=== PATIENT | female | born 1990 | race Hispanic/Latino ===

== ENCOUNTER 2017-08-22 02:31 | Emergency (ER) | payer SELFPAY ==
[2017-08-22] MEDS ORDERED: CEFTRIAXONE/SWI 1gm 0 GM/0 ML SYR ONE (03:02)
[2017-08-22] MEDS ORDERED: IBUPROFEN 400 MG TAB ONE (03:02)
[2017-08-22] MEDS ORDERED: AMOX/K CLAV 875 MG TAB ONE (03:02)
[2017-08-22] MEDS ORDERED: IBUPROFEN 200 MG TAB PO ONE (03:02)
[2017-08-22] MEDS ORDERED: CEFTRIAXONE 1000 MG/VIAL ONE (03:03)
--- NOTE | 2017-08-22 03:05 | EDPHYS ---
Physician Documentation [facility] Name: Milka Landry Age: 26 yrs Sex: Female : 1990 Arrival Date: 08/22/2017 Time: 02:32 Bed 15 Private MD: ED Physician Pete Gandara HPI: 08/22 02:58 This 26 yrs old Female presents to ER via Unassigned with complaints of Fever, wilfredo Cough, Ear Pain, Sore Throat. 02:58 The patient reports fever, that was measured at 100 degrees Fahrenheit. Onset: The wilfredo symptoms/episode began/occurred 3 day(s) ago. Modifying factors: there are no obvious modifying factors. Associated signs and symptoms: Pertinent positives: chills, cough, earache, runny nose, sinus congestion, sinus drainage. Severity of symptoms: At their worst the symptoms were mild moderate in the emergency department the symptoms are unchanged. The patient has not experienced similar symptoms in the past. 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 - Social history:: Smoking status: Patient/guardian denies using tobacco. - Family history:: not pertinent. ROS: 02:59 Constitutional: Negative for fever, chills, and weight loss, Eyes: Negative for injury, wilfredo pain, redness, and discharge, Neck: Negative for injury, pain, and swelling, Cardiovascular: Negative for chest pain, palpitations, and edema, Abdomen/GI: Negative for abdominal pain, nausea, vomiting, diarrhea, and constipation, Back: Negative for injury and pain, : Negative for injury, bleeding, discharge, and swelling, MS/Extremity: Negative for injury and deformity, Skin: Negative for injury, rash, and discoloration, Neuro: Negative for headache, weakness, numbness, tingling, and seizure, Psych: Negative for depression, anxiety, suicide ideation, homicidal ideation, and hallucinations, Allergy/Immunology: Negative for hives, rash, and allergies, Endocrine: Negative for neck swelling, polydipsia, polyuria, polyphagia, and marked weight changes, Hematologic/Lymphatic: Negative for swollen nodes, abnormal bleeding, and unusual bruising. 02:59 ENT: Positive for difficulty swallowing, hoarseness, rhinorrhea, sinus congestion, sore throat. 02:59 Neck: Negative for injury or acute deformity, mass, pain with movement, pain at rest. Exam: 02:59 Constitutional: This is a well developed, well nourished patient who is awake, alert, wilfredo and in no acute distress. Head/Face: Normocephalic, atraumatic. Eyes: Pupils equal round and reactive to light, extra-ocular motions intact. Lids and lashes normal. Conjunctiva and sclera are non-icteric and not injected. Cornea within normal limits. Periorbital areas with no swelling, redness, or edema. ENT: Nares patent. No nasal discharge, no septal abnormalities noted. Tympanic membranes are normal and external auditory canals are clear. Oropharynx with no redness, swelling, or masses, exudates, or evidence of obstruction, uvula midline. Mucous membranes moist. Chest/axilla: Normal chest wall appearance and motion. Nontender with no deformity. No lesions are appreciated. Cardiovascular: Regular rate and rhythm with a normal S1 and S2. No gallops, murmurs, or rubs. Normal PMI, no JVD. No pulse deficits. Respiratory: Lungs have equal breath sounds bilaterally, clear to auscultation and percussion. No rales, rhonchi or wheezes noted. No increased work of breathing, no retractions or nasal flaring. Abdomen/GI: Soft, non-tender, with normal bowel sounds. No distension or tympany. No guarding or rebound. No evidence of tenderness throughout. Back: No spinal tenderness. No costovertebral tenderness. Full range of motion. Female : Normal external genitalia. Skin: Warm, dry with normal turgor. Normal color with no rashes, no lesions, and no evidence of cellulitis. MS/ Extremity: Pulses equal, no cyanosis. Neurovascular intact. Full, normal range of motion. Neuro: Awake and alert, GCS 15, oriented to person, place, time, and situation. Cranial nerves II-XII grossly intact. Motor strength 5/5 in all extremities. Sensory grossly intact. Cerebellar exam normal. Normal gait. Psych: Awake, alert, with orientation to person, place and time. Behavior, mood, and affect are within normal limits. 02:59 Neck: External neck: is normal. 02:59 Chest/axilla: Exam negative for 02:59 Cardiovascular: Exam negative for 02:59 Respiratory: the patient does not display signs of respiratory distress, Respirations: no acute changes, Breath sounds: rhonchi, that are mild, are scattered. 02:59 Abdomen/GI: Exam negative for Vital Signs: 04:00 BP 121 / 72; Pulse 88; Resp 16; Temp 97.9(O); Pulse Ox 99% on R/A; Weight 125.19 kg; bs1 Height 5 ft. 2 in. (157.48 cm); Pain 8/10; 04:00 Body Mass Index 50.48 (125.19 kg, 157.48 cm) bs1 MDM: 02:43 Patient medically screened. [facility] 03:01 Data reviewed: vital signs, nurses notes. [facility] 08/22 02:58 Order name: Urine Dipstick-Ancillary (obtain specimen); Complete Time: 04:21 [facility] 08/22 02:58 Order name: Urine Test (obtain specimen); Complete Time: 04:21 [facility] Administered Medications: 03:31 Drug: Motrin 600 mg Route: PO; bs1 04:22 Follow up: Response: No adverse reaction 1 03:32 Drug: Rocephin (cefTRIAXone) 1 grams Route: IM; Site: right gluteus; bs1 04:22 Follow up: Response: No adverse reaction 1 03:32 Drug: Augmentin 875 mg Route: PO; bs1 04:22 Follow up: Response: No adverse reaction bs1 Disposition: 08/22/17 03:05 Discharged to Home. Impression: Fever, unspecified, Acute laryngitis, Cough, Otitis media, unspecified, left ear. - Condition is Stable. - Discharge Instructions: Otitis Media, Adult, Laryngitis, Cool Mist Vaporizers, Otitis Media, Adult, [id number], Cough, Adult, [id number], Cough, Adult. - Prescriptions for Augmentin 875- 125 mg Oral Tablet - take 1 tablet by ORAL route every 12 hours for 10 days; 20 tablet. Maranda- D 12 Hour 60-120 mg Oral Tablet Sustained Release 12 hr - take 1 tablet by ORAL route every 12 hours As needed; 20 tablet. Medrol (Durga) 4 mg Oral Tablets, Dose Pack - take 1 tablet by ORAL route as directed - follow package instructions; 1 packet. Albuterol Sulfate 90 mcg/actuation - inhale 1-2 puff by INHALATION route every 4-6 hours; 1 Inhaler. - Medication Reconciliation Form, Thank You Letter, Antibiotic Education, Prescription Opioid Use form. - Follow up: Private Physician; When: 2 - 3 days; Reason: Recheck today's complaints, Re-evaluation by your physician. - Problem is new. - Symptoms have improved. Signatures: Dispatcher [employer] EDMS Pete Gandara MD MD cha Salazar, Brittany RN RN bs1 Corrections: (The following items were deleted from the chart) 04:27 03:05 08/22/2017 03:05 Discharged to Home. Impression: Fever, unspecified; Acute bs1 laryngitis; Cough; Otitis media, unspecified, left ear. Condition is Stable. Forms are Medication Reconciliation Form, Thank You Letter, Antibiotic Education, Prescription Opioid Use. Follow up: Private Physician; When: 2 - 3 days; Reason: Recheck today's complaints, Re-evaluation by your physician. Problem is new. Symptoms have improved. wilfredo
--- NOTE | 2017-08-22 04:27 | ER ---
Nurse's Notes [facility] Name: Milka Landry Age: 26 yrs Sex: Female : 1990 Arrival Date: 08/22/2017 Time: 02:32 Bed 15 Private MD: Diagnosis: Fever, unspecified;Acute laryngitis;Cough;Otitis media, unspecified, left ear Presentation: 08/22 02:45 Presenting complaint: Patient states: "I have been coughing so bad that I lost my voice bs1 and my throat hurts really bad.". Transition of care: patient was not received from another setting of care. Onset of symptoms was August 19, 2017. Initial Sepsis Screen: Does the patient meet any 2 criteria? No. Patient's initial sepsis screen is negative. Does the patient have a suspected source of infection? No. Patient's initial sepsis screen is negative. Care prior to arrival: None. 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 - Social history:: Smoking status: Patient/guardian denies using tobacco. - Family history:: not pertinent. Screenin:51 Abuse screen: Denies threats or abuse. Denies injuries from another. Nutritional bs1 screening: No deficits noted. Tuberculosis screening: No symptoms or risk factors identified. Fall Risk None identified. Assessment: 02:50 General: Appears in no apparent distress. uncomfortable, obese, Behavior is calm, bs1 cooperative, appropriate for age. Pain: Complains of pain in throat. Neuro: Level of Consciousness is awake, alert, obeys commands, Oriented to person, place, time, situation, Appropriate for age Restrictive Preparation Operator are equal bilaterally Moves all extremities. Cardiovascular: Denies chest pain, shortness of breath, Heart tones S1 S2 present Capillary refill < 3 seconds Patient's skin is warm and dry. Respiratory: Reports cough that is non-productive, Airway is patent Trachea midline Respiratory effort is even, unlabored, Respiratory pattern is regular, symmetrical, Breath sounds are clear bilaterally. GI: No deficits noted. No signs and/or symptoms were reported involving the gastrointestinal system. : No deficits noted. No signs and/or symptoms were reported regarding the genitourinary system. EENT: Throat is reddened Reports pain in right ear and left ear. Derm: Skin is intact, Skin is pink, warm \\T\\ dry. Musculoskeletal: Circulation, motion, and sensation intact. Capillary refill < 3 seconds, Range of motion: intact in all extremities. Vital Signs: 04:00 BP 121 / 72; Pulse 88; Resp 16; Temp 97.9(O); Pulse Ox 99% on R/A; Weight 125.19 kg; bs1 Height 5 ft. 2 in. (157.48 cm); Pain 8/10; 04:00 Body Mass Index 50.48 (125.19 kg, 157.48 cm) bs1 ED Course: 02:32 Patient arrived in ED. am2 02:43 Pete Gandara MD is Attending Physician. wilfredo 02:50 Arm band placed on placed. bs1 02:56 Joanne Field, JANINE is Primary Nurse. bs1 03:48 Triage completed. bs1 03:52 Patient has correct armband on for positive identification. Bed in low position. Call bs1 light in reach. Side rails up X 1. Pulse ox on. NIBP on. 04:23 No provider procedures requiring assistance completed. Patient did not have IV access bs1 during this emergency room visit. Administered Medications: 03:31 Drug: Motrin 600 mg Route: PO; bs1 04:22 Follow up: Response: No adverse reaction bs1 03:32 Drug: Rocephin (cefTRIAXone) 1 grams Route: IM; Site: right gluteus; bs1 04:22 Follow up: Response: No adverse reaction bs1 03:32 Drug: Augmentin 875 mg Route: PO; bs1 04:22 Follow up: Response: No adverse reaction bs1 Outcome: 03:05 Discharge ordered by . wilfredo 04:26 Discharged to home ambulatory. bs1 04:26 Condition: stable 04:26 Discharge instructions given to patient, Instructed on discharge instructions, follow up and referral plans. medication usage, Demonstrated understanding of instructions, follow-up care, medications, Prescriptions given X 4. 04:27 Patient left the ED. bs1 Signatures: Pete Gandara MD MD cha Moreno, Amanda am2 Salazar, Brittany RN RN bs1 Corrections: (The following items were deleted from the chart) : 02:50 EENT: Throat is reddened bs1 bs1
[2017-08-22 04:31] VITALS: BP 121/72; TEMP 97.9; O2SAT 99
== END 2017-08-22 04:27 | disposition home or self-care (01) ==
LOC: ER 02:31
DX: J04.0 Acute laryngitis (principal); H66.92 Otitis media, unspecified, left ear; R05 Cough
CPT/HCPCS: 96372; 99283; J0696

== ENCOUNTER 2017-08-22 08:17 | Emergency (ER) | payer SELFPAY ==
[2017-08-22] MEDS ORDERED: ALBUTEROL 2.5 MG/3 ML NEB SOL ONE (08:49)
--- NOTE | 2017-08-22 09:42 | RAD REPORT ---
EXAM DESCRIPTION: RAD - Chest Pa And Lat (2 Views) - 08/22/2017 9:22 am CLINICAL HISTORY: Cough x2 days COMPARISON: None. FINDINGS: The lungs are clear. The heart is normal in size. No displaced fractures. IMPRESSION: No acute or concerning finding suspected.
--- NOTE | 2017-08-22 09:57 | ER ---
Nurse's Notes [facility] Name: Milka Landry Age: 26 yrs Sex: Female : 1990 Arrival Date: 08/22/2017 Time: 08:19 Bed 14 Private MD: Diagnosis: Otitis media, unspecified, bilateral;Acute upper respiratory infection, unspecified Presentation: 08/22 08:47 Presenting complaint: Patient states: has cough X 2days. Transition of care: patient iw was not received from another setting of care. Onset of symptoms was August 20, 2017. Initial Sepsis Screen: Does the patient meet any 2 criteria? No. Patient's initial sepsis screen is negative. Does the patient have a suspected source of infection? No. Patient's initial sepsis screen is negative. Care prior to arrival: None. 08:47 Method Of Arrival: Ambulatory iw 08:47 Acuity: HEATHER 4 iw Triage Assessment: 08:47 General: Appears in no apparent distress. uncomfortable, obese, Behavior is calm, hj cooperative, appropriate for age. Pain: Denies pain. 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 - Social history:: Smoking status: Patient/guardian denies using tobacco, Patient/guardian denies using alcohol. Screenin:47 Abuse screen: Denies threats or abuse. Denies injuries from another. Nutritional hj screening: No deficits noted. Tuberculosis screening: No symptoms or risk factors identified. Fall Risk None identified. Assessment: 10:33 Reassessment: Patient appears in no apparent distress at this time. Patient and/or ch family updated on plan of care and expected duration. Pain level reassessed. Patient is alert, oriented x 3, equal unlabored respirations, skin warm/dry/pink. General: Appears in no apparent distress. comfortable, Behavior is calm, cooperative, appropriate for age. Pain:. 10:38 Reassessment: Patient appears in no apparent distress at this time. Patient and/or ch family updated on plan of care and expected duration. Pain level reassessed. Patient is alert, oriented x 3, equal unlabored respirations, skin warm/dry/pink. Patient states feeling better. Patient states symptoms have improved. Vital Signs: 08:47 BP 121 / 72; Pulse 88; Resp 18; Temp 98.1(TE); Pulse Ox 100% on R/A; Weight 125.1 kg; hj Height 5 ft. 2 in. (157.48 cm); 10:38 BP 116 / 76; Pulse 81; Resp 15; Temp 98.2; Pulse Ox 99% on R/A; Pain 7/10; ch 08:47 Body Mass Index 50.44 (125.10 kg, 157.48 cm) ED Course: 08:19 Patient arrived in ED. rg4 08:35 Pete Renteria PA is PHCP. cp 08:35 Pete Gandara MD is Attending Physician. cp 08:46 Salvador Quintanilla, RN is Primary Nurse. hj 08:47 Arm band placed on right wrist. hj 08:47 Patient has correct armband on for positive identification. Bed in low position. Call light in reach. Side rails up X 1. 08:48 Triage completed. iw 09:08 Patient moved to radiology via wheelchair. sw 09:20 X-ray completed. Portable x-ray completed in exam room. Patient tolerated procedure sw well. Patient moved back from radiology. 09:21 XRAY Chest Pa And Lat (2 Views) In Process Unspecified. EDMS 10:38 Primary Nurse role handed off by Salvador Quintanilla, RN ch 10:38 Rachael Day, RN is Primary Nurse. ch 10:38 No apparent distress. Resting quietly. ch 10:38 No provider procedures requiring assistance completed. Patient did not have IV access ch during this emergency room visit. Administered Medications: 08:46 Drug: Albuterol 2.5 mg Route: Inhalation; iw 10:39 Follow up: Response: No adverse reaction; Marked relief of symptoms ch 10:23 Drug: Tessalon Perle 200 mg Route: PO; ae1 10:39 Follow up: Response: No adverse reaction; Marked relief of symptoms ch 10:23 Drug: predniSONE 40 mg Route: PO; ae1 10:39 Follow up: Response: No adverse reaction; Marked relief of symptoms ch Outcome: 09:57 Discharge ordered by . cp 10:38 Discharged to home ambulatory. ch 10:38 Condition: improved 10:38 Discharge instructions given to patient, Instructed on discharge instructions, follow up and referral plans. medication usage, Demonstrated understanding of instructions, follow-up care, medications, Prescriptions given X 3. 10:39 Patient left the ED. Signatures: Dispatcher [employer] EDMS Rachael Day RN RN ch Williams, Irene, RN RN iw Warren, Shannon sw Joaquin, Henry, RN RN hj Page, Corey, PA PA cp Elliott, Andrea RN RN ae1 Yas Oh rg4 Corrections: (The following items were deleted from the chart) 09:12 09:11 BP 121 / 72; Pulse 88bpm; Resp 18bpm; Temp 98.1F Temporal; arlene jacobs
--- NOTE | 2017-08-22 09:57 | EDPHYS ---
Physician Documentation [facility] Name: Milka Lnadry Age: 26 yrs Sex: Female : 1990 Arrival Date: 08/22/2017 Time: 08:19 Bed 14 Private MD: ED Physician Pete Gandara HPI: 08/22 08:45 This 26 yrs old Female presents to ER via Unassigned with complaints of Cough. cp 08:45 The patient or guardian reports cough, that is constant, with productive sputum, clear. cp Onset: The symptoms/episode began/occurred 2 day(s) ago. Severity of symptoms: in the emergency department the symptoms are unchanged. 08:45 Patient returns to ED after being seen earlier this morning with similar complaints and cp reports she was unable to sleep due to cough worsening when lying flat. Patient reports she in unsure what she can take for cough. Patient reports she was diagnosed with ear infection and given RX for antibiotic. 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 - Social history:: Smoking status: Patient/guardian denies using tobacco, Patient/guardian denies using alcohol. ROS: 09:00 Constitutional: Negative for body aches, chills, fever, poor PO intake. cp 09:00 Eyes: Negative for injury, pain, redness, and discharge. cp 09:00 ENT: Positive for rhinorrhea, sore throat, Negative for drainage from ear(s), difficulty swallowing, difficulty handling secretions. 09:00 Cardiovascular: Negative for chest pain, edema. 09:00 Respiratory: Positive for cough, "sounds productive", Negative for hemoptysis. 09:00 Abdomen/GI: Negative for abdominal pain, nausea, vomiting, and diarrhea, constipation, black/tarry stool, rectal bleeding. 09:00 Back: Negative for pain at rest, pain with movement, radiated pain. 09:00 : Negative for urinary symptoms. 09:00 Skin: Negative for cellulitis, rash. 09:00 Neuro: Negative for altered mental status, headache, weakness. 09:00 All other systems are negative. Exam: 09:00 Head/Face: Normocephalic, atraumatic. cp 09:00 Constitutional: The patient appears in no acute distress, alert, non-diaphoretic, non-toxic, well developed, well nourished, obese, uncomfortable. 09:00 Eyes: Periorbital structures: appear normal, Pupils: equal, round, and reactive to light and accomodation, Extraocular movements: intact throughout, Conjunctiva: normal, no exudate, no injection, Sclera: no appreciated abnormality, Lids and lashes: appear normal, bilaterally. 09:00 ENT: External ear(s): are unremarkable, Ear canal(s): erythema, that is moderate, TM's: bulging, is not appreciated, bilaterally, erythema, that is mild, bilaterally, Nose: is normal, Mouth: Lips: moist, Oral mucosa: moist, Posterior pharynx: Airway: no evidence of obstruction, patent, Tonsils: mild erythema, no enlargement, no erythema, Uvula: midline, swelling, is not appreciated, erythema, that is mild, exudate, is not appreciated, Voice: is hoarse. 09:00 Neck: ROM/movement: is normal, is supple, without pain, no range of motions limitations, no meningismus, no nuchal rigidity, negative Brudzinski's sign. 09:00 Chest/axilla: Inspection: normal, Palpation: is normal, no crepitus, no tenderness. 09:00 Cardiovascular: Rate: normal, Rhythm: regular, Edema: JVD: is not appreciated. 09:00 Respiratory: the patient does not display signs of respiratory distress, Respirations: labored breathing, is not present, Breath sounds: bronchial sounds, that are mild, are heard diffusely, stridor, is not appreciated, + upper airway congestion. 09:00 Abdomen/GI: Inspection: obese Bowel sounds: 09:00 Back: pain, is absent, ROM is normal. 09:00 Skin: cellulitis, is not appreciated. Vital Signs: 08:47 BP 121 / 72; Pulse 88; Resp 18; Temp 98.1(TE); Pulse Ox 100% on R/A; Weight 125.1 kg; hj Height 5 ft. 2 in. (157.48 cm); 10:38 BP 116 / 76; Pulse 81; Resp 15; Temp 98.2; Pulse Ox 99% on R/A; Pain 7/10; ch 08:47 Body Mass Index 50.44 (125.10 kg, 157.48 cm) hj MDM: 08:35 Patient medically screened. cp 10:55 Data reviewed: vital signs, nurses notes, lab test result(s), radiologic studies, plain cp films, and as a result, I will. 10:55 Differential Diagnosis: Bronchitis Influenza Sinusitis Pharyngitis Otitis Media. Test cp interpretation: by ED physician or midlevel provider: plain radiologic studies. Counseling: I had a detailed discussion with the patient and/or guardian regarding: the historical points, exam findings, and any diagnostic results supporting the discharge/admit diagnosis, radiology results, the need for outpatient follow up, a family practitioner, to return to the emergency department if symptoms worsen or persist or if there are any questions or concerns that arise at home. 08/22 08:46 Order name: Influenza Screen (A ; Complete Time: 09:33 EDMS 08/22 09:33 Interpretation: Reviewed. cp 08/22 08:46 Order name: XRAY Chest Pa And Lat (2 Views); Complete Time: 09:56 cp 08/22 09:56 Interpretation: Report reviewed. 08/22 08:46 Order name: Urine Dipstick-Ancillary (obtain specimen); Complete Time: 09:17 cp 08/22 08:46 Order name: Urine Test (obtain specimen); Complete Time: 08:47 cp Administered Medications: 08:46 Drug: Albuterol 2.5 mg Route: Inhalation; iw 10:39 Follow up: Response: No adverse reaction; Marked relief of symptoms ch 10:23 Drug: Tessalon Perle 200 mg Route: PO; ae1 10:39 Follow up: Response: No adverse reaction; Marked relief of symptoms ch 10:23 Drug: predniSONE 40 mg Route: PO; ae1 10:39 Follow up: Response: No adverse reaction; Marked relief of symptoms ch Disposition: 08/23 06:59 Co-signature as Attending Physician, Pete Gandara MD I agree with the assessment and wilfredo plan of care. Disposition: 08/22/17 09:57 Discharged to Home. Impression: Otitis media, unspecified, bilateral, Acute upper respiratory infection, unspecified. - Condition is Stable. - Discharge Instructions: Otitis Media, Adult, Upper Respiratory Infection, Adult, Cool Mist Vaporizers. - Prescriptions for Prednisone 20 mg Oral Tablet - take 2 tablet by ORAL route once daily for 5 days; 10 tablet. Tessalon Perles 100 mg Oral Capsule - take 2 capsule by ORAL route every 8 hours As needed; 30 capsule. Ibuprofen 800 mg Oral Tablet - take 1 tablet by ORAL route every 8 hours As needed take with food; 30 tablet. - Medication Reconciliation Form, Thank You Letter, Antibiotic Education, Prescription Opioid Use form. - Follow up: Private Physician; When: 2 - 3 days; Reason: Recheck today's complaints. - Problem is new. - Symptoms have improved. Signatures: Dispatcher [employer] EDCO Rachael Day, RN Pete Schroeder ch, MD MD cha Williams, Irene RN RN iw Salvador Quintanilla RN RN hj Pete Renteria PA PA cp Graham Post RN RN ae1 Corrections: (The following items were deleted from the chart) 08/22 08:47 08:46 Influenza Screen (A \\T\\ B)+[id number] ordered. [facility] EDMS 10:39 09:57 08/22/2017 09:57 Discharged to Home. Impression: Otitis media, unspecified, ch bilateral; Acute upper respiratory infection, unspecified. Condition is Stable. Forms are Medication Reconciliation Form, Thank You Letter, Antibiotic Education, Prescription Opioid Use. Follow up: Private Physician; When: 2 - 3 days; Reason: Recheck today's complaints. Problem is new. Symptoms have improved. cp
[2017-08-22] MEDS ORDERED: BENZONATATE 100 MG CAP PO ONE (10:00)
[2017-08-22] MEDS ORDERED: predniSONE 20 MG TAB ONE (10:00)
[2017-08-22 10:52] VITALS: BP 116/76; TEMP 98.2; O2SAT 99
== END 2017-08-22 10:39 | disposition home or self-care (01) ==
LOC: ER 08:17
DX: J06.9 Acute upper respiratory infection, unspecified (principal); H66.93 Otitis media, unspecified, bilateral
CPT/HCPCS: 71046; 87804; 99284; J7512

== ENCOUNTER 2017-09-17 20:38 | Emergency (ER) | payer SELFPAY ==
[2017-09-17] MEDS ORDERED: ALBUTEROL 2.5 MG/3 ML NEB SOL ONE (22:29)
[2017-09-17] MEDS ORDERED: BENZONATATE 100 MG CAP PO ONE (22:29)
[2017-09-17] MEDS ORDERED: IPRATROPIUM BROM 0.5MG/2.5ML ONE (22:30)
--- NOTE | 2017-09-17 23:37 | ER ---
Nurse's Notes [facility] Name: Milka Landry Age: 27 yrs Sex: Female : 1990 Arrival Date: 09/17/2017 Time: 20:45 Bed 20 Private MD: Diagnosis: Otitis media, unspecified, bilateral;Cough Presentation: 09/17 20:46 Presenting complaint: Patient states: Patient was here three week ago with the same ao symptoms and was discharge home with antibiotic and she has finish her treatment and still having the cough and chest congestions. Patient also reports fever, nausea and loss of appetite. Transition of care: patient was not received from another setting of care. Onset of symptoms is unknown. Risk Assessment: Do you want to hurt yourself or someone else? Patient reports no desire to harm self or others. Initial Sepsis Screen: Does the patient meet any 2 criteria? HR > 90 bpm. No. Patient's initial sepsis screen is negative. Does the patient have a suspected source of infection? No. Patient's initial sepsis screen is negative. Care prior to arrival: None. 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 - Social history:: Smoking status: Patient/guardian denies using tobacco, Patient/guardian denies using alcohol, street drugs. - Ebola Screening: : Patient negative for fever greater than or equal to 101.5 degrees Fahrenheit, and additional compatible Ebola Virus Disease symptoms Patient denies exposure to infectious person Patient denies travel to an Ebola-affected area in the 21 days before illness onset. Screenin:04 Abuse screen: Denies threats or abuse. Denies injuries from another. Nutritional rv screening: No deficits noted. Tuberculosis screening: Has had TB. Possible symptoms: cough for more than 2 weeks. Fall Risk None identified. Assessment: 20:57 General: Appears in no apparent distress. uncomfortable, obese, Behavior is calm, rv cooperative, appropriate for age, Reports chest pain when doing deep breathing and coughing. denies fever. Pain: Complains of pain in anterior aspect of right upper chest, anterior aspect of left upper chest, xyphoid area, mid-sternal area, right breast and left breast. Neuro: Level of Consciousness is awake, alert, obeys commands, Oriented to person, place, time, situation. Cardiovascular: Capillary refill < 3 seconds. Respiratory: Airway is patent Breath sounds with crackles bilaterally. GI: No signs and/or symptoms were reported involving the gastrointestinal system. : No signs and/or symptoms were reported regarding the genitourinary system. EENT: No signs and/or symptoms were reported regarding the EENT system. Derm: Skin is intact. Musculoskeletal: No signs and/or symptoms reported regarding the musculoskeletal system. 22:04 Reassessment: comfortably lying on the bed. rv 09/18 00:07 Reassessment: PT D/C HOME AMBULATORY, DX WITH OTITIS MEDIA. bp Vital Signs: 09/17 20:48 BP 113 / 82; Pulse 103; Resp 18; Temp 99.2(TE); Pulse Ox 95% on R/A; Weight 133.36 kg ao (R); Height 5 ft. 1 in. (154.94 cm) (R); Pain 6/10; 22:03 BP 108 / 49; Pulse 86; Resp 19; Pulse Ox 100% on R/A; rv 23:00 BP 101 / 74; Pulse 83; Resp 16; Pulse Ox 100% ; bp 09/18 00:08 BP 103 / 79; Pulse 89; Resp 16; Pulse Ox 99% ; bp 09/17 20:48 Body Mass Index 55.55 (133.36 kg, 154.94 cm) ao ED Course: 09/17 20:45 Patient arrived in ED. es 20:48 Triage completed. ao 20:50 Arm band placed on right wrist. Patient placed in an exam room, on a stretcher, on ao pulse oximetry, Patient notified of wait time. 20:51 Jay Jay Eddy, JANINE is Primary Nurse. bp 20:51 Pete Renteria PA is PHCP. cp 20:51 Dipak Sapp MD is Attending Physician. cp 21:05 Patient has correct armband on for positive identification. Placed in gown. Bed in low rv position. Call light in reach. Side rails up X 1. Pulse ox on. NIBP on. 23:23 Throat Culture Sent. rv 09/18 00:08 No provider procedures requiring assistance completed. Patient did not have IV access bp during this emergency room visit. Administered Medications: 09/17 22:33 Drug: Albuterol 2.5 mg Route: Inhalation; bp 22:33 Drug: AtroVENT Aerosol 0.5 mg Route: Inhalation; bp 22:34 Drug: Tessalon Perle 200 mg Route: PO; bp 22:34 Follow up: Response: No adverse reaction bp 23:41 Drug: predniSONE 40 mg Route: PO; bp 23:41 Follow up: Response: No adverse reaction bp Outcome: 23:36 Discharge ordered by . petra 09/18 00:09 Discharged to home ambulatory. bp Condition: stable Discharge instructions given to patient, Instructed on discharge instructions, follow up and referral plans. medication usage, Demonstrated understanding of instructions, follow-up care, medications. 00:09 Patient left the ED. bp Signatures: Lindsey Miller Corey, PA PA Wilfred Agrawal RN RN Jay Jay Artis, JANINE RN bp Carlos Oh, JANINE RN rv
--- NOTE | 2017-09-17 23:37 | EDPHYS ---
Physician Documentation [facility] Name: Milka Landry Age: 27 yrs Sex: Female : 1990 Arrival Date: 09/17/2017 Time: 20:45 Bed 20 Private MD: ED Physician Dipak Sapp HPI: 09/17 22:25 This 27 yrs old Female presents to ER via Ambulatory with complaints of Cough, cp Congestion. 22:25 The patient or guardian reports cough, that is intermittent, with productive sputum. cp Onset: The symptoms/episode began/occurred 3 week(s) ago. Severity of symptoms: in the emergency department the symptoms are unchanged. Associated signs and symptoms: Pertinent positives: fever, sore throat, Pertinent negatives: diarrhea, vomiting. The patient has been recently seen at the [facility] Emergency Department, last month, for similar complaints X-rays were performed, was given a prescription for antibiotics. 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 - Social history:: Smoking status: Patient/guardian denies using tobacco, Patient/guardian denies using alcohol, street drugs. - Ebola Screening: : Patient negative for fever greater than or equal to 101.5 degrees Fahrenheit, and additional compatible Ebola Virus Disease symptoms Patient denies exposure to infectious person Patient denies travel to an Ebola-affected area in the 21 days before illness onset. ROS: 22:30 Constitutional: Negative for body aches, chills, fever, poor PO intake. cp 22:30 Eyes: Negative for injury, pain, redness, and discharge. cp 22:30 ENT: Positive for sore throat, Negative for drainage from ear(s), ear pain, difficulty swallowing, difficulty handling secretions. 22:30 Cardiovascular: Negative for chest pain, edema, palpitations. 22:30 Respiratory: Positive for cough, Negative for hemoptysis. 22:30 Abdomen/GI: Negative for abdominal pain, vomiting, diarrhea, constipation. 22:30 Back: Negative for decreased range of motion, pain at rest, pain with movement, radiated pain. 22:30 : Negative for urinary symptoms. 22:30 Skin: Negative for cellulitis, rash. 22:30 Neuro: Negative for altered mental status, dizziness, headache, syncope, near syncope, weakness. 22:30 All other systems are negative. Exam: 22:38 Constitutional: The patient appears in no acute distress, alert, awake, cp non-diaphoretic, non-toxic, well developed, well nourished, obese. 22:38 Head/Face: Normocephalic, atraumatic. cp 22:38 Eyes: Periorbital structures: appear normal, Pupils: equal, round, and reactive to light and accomodation, Extraocular movements: intact throughout, Conjunctiva: normal, no exudate, no injection, Sclera: no appreciated abnormality, Lids and lashes: appear normal, bilaterally. 22:38 ENT: External ear(s): are unremarkable, Ear canal(s): are normal, clear, TM's: bulging, is not appreciated, bilaterally, erythema, that is mild, bilaterally, Nose: is normal, Mouth: Lips: moist, Oral mucosa: moist, Posterior pharynx: Airway: no evidence of obstruction, patent, Tonsils: mild erythema, no enlargement, no exudate, Uvula: midline, non-edematous, swelling, is not appreciated, erythema, that is mild, exudate, is not appreciated, Voice: is normal. 22:38 Neck: ROM/movement: is normal, is supple, without pain, no range of motions limitations, no meningismus, no nuchal rigidity, Lymph nodes: no appreciated lymphadenopathy. 22:38 Chest/axilla: Inspection: normal, Palpation: is normal, no crepitus, no tenderness. 22:38 Cardiovascular: Rate: normal, Rhythm: regular, Edema: is not appreciated, JVD: is not appreciated. 22:38 Respiratory: the patient does not display signs of respiratory distress, Respirations: normal, no use of accessory muscles, no retractions, no splinting, no tachypnea, labored breathing, is not present, Breath sounds: bronchial sounds, that are mild, are heard diffusely, decreased breath sounds, are not appreciated, + upper airway congestion. wheezing: is not appreciated. 22:38 Abdomen/GI: Exam negative for discomfort, distension, guarding, Inspection: obese 22:38 Back: pain, is absent, ROM is normal, CVA tenderness, is absent. 22:38 Skin: cellulitis, is not appreciated, no rash present. 22:38 Neuro: Orientation: to person, place \\T\\ time. Mentation: lucid, able to follow commands, Cerebellar function: is grossly normal, Motor: moves all fours, strength is normal, Sensation: no obvious gross deficits. Vital Signs: 20:48 BP 113 / 82; Pulse 103; Resp 18; Temp 99.2(TE); Pulse Ox 95% on R/A; Weight 133.36 kg ao (R); Height 5 ft. 1 in. (154.94 cm) (R); Pain 6/10; 22:03 BP 108 / 49; Pulse 86; Resp 19; Pulse Ox 100% on R/A; rv 23:00 BP 101 / 74; Pulse 83; Resp 16; Pulse Ox 100% ; bp 09/18 00:08 BP 103 / 79; Pulse 89; Resp 16; Pulse Ox 99% ; bp 09/17 20:48 Body Mass Index 55.55 (133.36 kg, 154.94 cm) ao MDM: 09/17 20:52 Patient medically screened. cp 23:00 Differential Diagnosis: Bronchitis Upper Respiratory Infection Otitis Media Asthma cp Exacerbation Viral Syndrome Pneumonia. 23:35 Data reviewed: vital signs, nurses notes, lab test result(s), and as a result, I will cp discharge patient. 23:35 Counseling: I had a detailed discussion with the patient and/or guardian regarding: the cp historical points, exam findings, and any diagnostic results supporting the discharge/admit diagnosis, lab results, the need for outpatient follow up, a family practitioner, to return to the emergency department if symptoms worsen or persist or if there are any questions or concerns that arise at home. Response to treatment: the patient's symptoms have mildly improved after treatment, and as a result, I will discharge patient. 09/17 22:23 Order name: Strep; Complete Time: 22:58 cp 09/17 22:59 Order name: Throat Culture EDMS 09/17 23:26 Order name: Urine Dipstick--Ancillary (enter results); Complete Time: 23:56 ms 09/17 23:26 Order name: Urine --Ancillary (enter results); Complete Time: 23:56 ms 09/17 22:59 Order name: Urine Dipstick-Ancillary (obtain specimen); Complete Time: 23:23 cp 09/17 22:59 Order name: Urine Test (obtain specimen); Complete Time: 23:23 cp Administered Medications: 22:33 Drug: Albuterol 2.5 mg Route: Inhalation; bp 22:33 Drug: AtroVENT Aerosol 0.5 mg Route: Inhalation; bp 22:34 Drug: Tessalon Perle 200 mg Route: PO; bp 22:34 Follow up: Response: No adverse reaction bp 23:41 Drug: predniSONE 40 mg Route: PO; bp 23:41 Follow up: Response: No adverse reaction bp Disposition: 09/17/17 23:36 Discharged to Home. Impression: Otitis media, unspecified, bilateral, Cough. - Condition is Stable. - Discharge Instructions: Otitis Media, Adult, [id number], Cough, Adult. - Prescriptions for Zithromax Z- Durga 250 mg Oral Tablet - take 1 tablet by ORAL route as directed for 5 days Day 1 - take two (2) tablets one time. Day 2, 3, 4 , 5 take one (1) tablet once daily.; 6 tablet. Prednisone 20 mg Oral Tablet - take 2 tablet by ORAL route once daily for 5 days; 10 tablet. Albuterol Sulfate 90 mcg/actuation - inhale 1-2 puff by INHALATION route every 4-6 hours; 1 Inhaler. Tessalon Perles 100 mg Oral Capsule - take 2 capsule by ORAL route every 8 hours As needed; 30 capsule. - Medication Reconciliation Form, Thank You Letter, Antibiotic Education, Prescription Opioid Use form. - Follow up: Private Physician; When: 2 - 3 days; Reason: Recheck today's complaints. - Problem is an ongoing problem. - Symptoms have improved. Addendum: 09/19/2017 06:29 Co-signature as Attending Physician, Dipak Sapp MD I agree with the assessment and t w4 plan of care. Signatures: Dispatcher [employer] EDRI Pete Renteria PA PA cp Ortiz, Alex, RN RN Jay Jay Artis RN RN bp Wadley, Terrence, MD MD tw4 Corrections: (The following items were deleted from the chart) 09/18 00:09 09/17 23:36 09/17/2017 23:36 Discharged to Home. Impression: Otitis media, unspecified, bp bilateral; Cough. Condition is Stable. Forms are Medication Reconciliation Form, Thank You Letter, Antibiotic Education, Prescription Opioid Use. Follow up: Private Physician; When: 2 - 3 days; Reason: Recheck today's complaints. Problem is an ongoing problem. Symptoms have improved. cp
[2017-09-17] MEDS ORDERED: predniSONE 20 MG TAB ONE (23:41)
[2017-09-17 23:44] LABS: Urine Blood TRACE (NEG); Urine Glucose NEGATIVE (NEG); Urine Protein NEGATIVE (NEG); Urine Specific Gravity 1.025 (1.005-1.030); Urine pH 5.5 (5.0-7.0)
[2017-09-18 00:23] VITALS: TEMP 99.2
[2017-09-18 00:26] VITALS: BP 103/79; O2SAT 99
== END 2017-09-18 00:09 | disposition home or self-care (01) ==
LOC: ER 20:38
DX: H66.93 Otitis media, unspecified, bilateral (principal); R05 Cough
CPT/HCPCS: 81003; 81025; 87070; 87081; 99284; J7512

== ENCOUNTER 2017-10-20 18:31 | Emergency (ER) | payer SELFPAY ==
[2017-10-20 19:29] LABS: Absolute Lymphocytes (CBC) 3.6 K/uL (0.7-4.9); Absolute Monocytes 1.1 K/uL (0.1-1.3); Absolute Neutrophil 8.2 K/uL (1.8-8.0); Basophils % 0.8 % (0-1.3); Eosinophils % 1.9 % (0-4.4); Hematocrit 42.3 % (36.0-45.0); Lymphocytes % 27.3 % (15.3-44.8); MCH 28.4 pg (27.0-35.0); MCV 85.3 fL (80-100); MPV 7.6 fL (7.6-11.3); Monocytes % 8.1 % (3.3-12.3); RBC Red Blood Cell Count 4.95 M/uL (3.86-4.86)
[2017-10-20 19:48] LABS: ALT/SGPT 24 U/L (12-78); AST/SGOT 14 U/L (15-37); Albumin 3.8 g/dL (3.4-5.0); Alkaline Phosphatase 82 U/L (45-117); BUN Blood Urea Nitrogen 12 mg/dL (7-18); Bicarbonate 29 mmol/L (21-32); Bilirubin Direct < 0.1 mg/dL (0-0.2); Bilirubin Total 0.2 mg/dL (0.2-1.0); Glucose Level 86 mg/dL (74-106); Lipase 120 U/L (73-393); Potassium 3.8 mmol/L (3.5-5.1); Protein, Total 7.8 g/dL (6.4-8.2); Sodium Level 138 mmol/L (136-145)
[2017-10-20 20:03] LABS: Urine Blood NEGATIVE (NEG); Urine Glucose NEGATIVE (NEG); Urine Protein NEGATIVE (NEG); Urine Specific Gravity >1.030 (1.005-1.030); Urine pH 5.5 (5.0-7.0)
--- NOTE | 2017-10-20 21:19 | RAD REPORT ---
EXAM DESCRIPTION: CT - Abdomen Pelvis W Contrast - 10/20/2017 9:03 pm CLINICAL HISTORY: Right-sided abdominal pain COMPARISON: CT study April 2015 TECHNIQUE: Biphasic, helical CT imaging of the abdomen and pelvis was performed following 100 ml non -ionic IV contrast. Oral contrast was given. All CT scans are performed using dose optimization technique as appropriate and may include automated exposure control or mA/KV adjustment according to patient size. FINDINGS: No suspicious findings in the lung bases. The liver, spleen, and pancreas show no suspicious findings. Gallbladder and biliary tree are also wi thout suspicious finding. Symmetric renal function is seen with no hydronephrosis or suspicious renal mass. No pyelonephritis o r acute renal parenchymal process. No urinary bladder abnormality. Uterus and ovaries show no suspici ous findings. No dilated bowel loops or bowel wall thickening. No appendicitis. No free air, free fluid or inflamma tory stranding. No mass or bulky lymphadenopathy. The patient has a 3 centimeter supraumbilical vent ral hernia. This contains only fat with no acute component. No bowel involvement. No adrenal abnormal ity. No suspicious bony findings. IMPRESSION: Contrast enhanced CT abdomen and pelvis showing no significant or suspicious finding. The patient's supraumbilical ventral fat only hernia does not appear significantly different from Apr.
[2017-10-20] MEDS ORDERED: PROMETHAZINE 25 MG/ML VIAL ONE (21:42)
[2017-10-20] MEDS ORDERED: MEPERIDINE HCL 25 MG/0.5 ML ONE (21:42)
--- NOTE | 2017-10-20 22:06 | ER ---
Nurse's Notes [facility] Name: Milka Landry Age: 27 yrs Sex: Female : 1990 Arrival Date: 10/20/2017 Time: 18:33 Bed 6 Private MD: None, None Diagnosis: Abdominal and pelvic pain Presentation: 10/20 18:40 Presenting complaint: Patient states: Right side abdominal pain with nausea that aj started yesterday. Reports negative home test. Transition of care: patient was not received from another setting of care. Onset of symptoms was October 20, 2017. Risk Assessment: Do you want to hurt yourself or someone else? Patient reports no desire to harm self or others. Initial Sepsis Screen: Does the patient meet any 2 criteria? No. Patient's initial sepsis screen is negative. Does the patient have a suspected source of infection? No. Patient's initial sepsis screen is negative. Care prior to arrival: None. 18:40 Method Of Arrival: Ambulatory aj 18:40 Acuity: HEATHER 3 aj Triage Assessment: 18:41 General: Appears in no apparent distress. comfortable, Behavior is calm, cooperative, aj appropriate for age. Pain: Complains of pain in suprapubic area, right inguinal area and left inguinal area. Neuro: Level of Consciousness is awake, alert, obeys commands, Oriented to person, place, time, situation, Appropriate for age. Respiratory: Airway is patent Respiratory effort is even, unlabored, Respiratory pattern is regular, symmetrical. GI: Abdomen is non-distended, obese. Derm: Skin is intact, is healthy with good turgor, Skin is pink, warm \\T\\ dry. normal. 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 - Social history:: Smoking status: Patient uses tobacco products, smokes one-half pack cigarettes per day. - Ebola Screening: : Patient negative for fever greater than or equal to 101.5 degrees Fahrenheit, and additional compatible Ebola Virus Disease symptoms Patient denies exposure to infectious person Patient denies travel to an Ebola-affected area in the 21 days before illness onset No symptoms or risks identified at this time. Screenin:45 Abuse screen: Denies threats or abuse. Denies injuries from another. Nutritional jl7 screening: No deficits noted. Tuberculosis screening: No symptoms or risk factors identified. Fall Risk None identified. Assessment: 18:45 General: Appears in no apparent distress. uncomfortable, Behavior is calm, cooperative, jl7 appropriate for age. Pain: Complains of pain in right upper quadrant and right lower quadrant Pain does not radiate. Pain currently is 6 out of 10 on a pain scale. at worst was 8 out of 10 on a pain scale. Quality of pain is described as aching, dull, Pain began gradually, 1 day ago. Is continuous. Neuro: Level of Consciousness is awake, alert, obeys commands, Oriented to person, place, time, situation. Cardiovascular: Patient's skin is warm and dry. Respiratory: Airway is patent Respiratory effort is even, unlabored, Respiratory pattern is regular, symmetrical. GI: Bowel sounds present X 4 quads. Abd is soft X 4 quads Abdomen is tender to palpation in right upper quadrant and right lower quadrant Reports nausea. : No signs and/or symptoms were reported regarding the genitourinary system. EENT: No signs and/or symptoms were reported regarding the EENT system. Derm: Skin is pink, warm \\T\\ dry. Vital Signs: 18:41 BP 114 / 74; Pulse 108; Resp 20; Temp 98.3; Pulse Ox 98% on R/A; Weight 134.72 kg; aj Height 5 ft. 1 in. (154.94 cm); 22:08 BP 114 / 65; Pulse 84; Resp 16; Temp 97.7; Pulse Ox 99% ; Pain 0/10; tl1 18:41 Body Mass Index 56.12 (134.72 kg, 154.94 cm) aj ED Course: 18:33 Patient arrived in ED. mr 18:34 None, None is Private Physician. mr 18:34 Octavio Barry PA is PHCP. jr8 18:34 Hector Fallon MD is Attending Physician. jr8 18:41 Triage completed. aj 18:41 Arm band placed on left wrist. Patient placed in an exam room. aj 18:45 Patient has correct armband on for positive identification. Bed in low position. Call jl7 light in reach. Side rails up X 1. Pulse ox on. NIBP on. 18:50 Charlene Etienne RN is Primary Nurse. jl7 19:03 Urine collected: clean catch specimen, clear, rodrigo colored. jb1 19:08 Report given to JANINE Angulo. jl7 19:15 Primary Nurse role handed off by Charlene Etienne RN rg2 19:20 Initial lab(s) drawn, by ga, sent to lab. Inserted saline lock: 20 gauge in right cc antecubital area, using aseptic technique. Blood collected. 21:03 CT Abd/Pelvis - W/Contrast In Process Unspecified. EDMS 21:04 CT completed. Patient tolerated procedure well. Patient moved back from CT. mi 21:08 Adele Holley RN is Primary Nurse. tl1 22:49 No provider procedures requiring assistance completed. IV discontinued, intact, tl1 bleeding controlled, No redness/swelling at site. Pressure dressing applied. Administered Medications: 21:43 Drug: Demerol 25 mg Route: IVP; Infused Over: 2 mins; Site: right antecubital; tl1 22:50 Follow up: Response: No adverse reaction; Marked relief of symptoms; Pain is decreased tl1 21:44 Drug: Promethazine 12.5 mg Route: IVP; Infused Over: 3 mins; Site: right antecubital; tl1 22:50 Follow up: Response: No adverse reaction; Marked relief of symptoms; Pain is decreased tl1 Outcome: 22:06 Discharge ordered by . jr8 22:49 Discharged to home ambulatory. tl1 22:49 Condition: good 22:49 Discharge instructions given to patient, Instructed on discharge instructions, follow up and referral plans. medication usage, Demonstrated understanding of instructions, follow-up care, medications, Prescriptions given X 3. 22:51 Patient left the ED. tl1 Signatures: Dispatcher [employer] EDMS Ady Salazar jb1 Iliana Machado rg2 Michelle Ahmadi RN RN aj Rivera, Maria mr Christian, Chelsea cc Roszak, Josh, PA PA jr8 Adele Holley, RN JANINE tl1 Av Ricks mi Charlene Etienne, RN JANINE jl7
--- NOTE | 2017-10-20 22:06 | EDPHYS ---
Physician Documentation [facility] Name: Milka Landry Age: 27 yrs Sex: Female : 1990 Arrival Date: 10/20/2017 Time: 18:33 Bed 6 Private MD: None, None ED Physician Hector Fallon HPI: 10/20 19:19 This 27 yrs old Female presents to ER via Ambulatory with complaints of jr8 Abdominal Pain, Vomiting. 19:19 The patient presents with abdominal pain right lower quadrant. Onset: The jr8 symptoms/episode began/occurred acutely, today. The symptoms do not radiate. Associated signs and symptoms: Pertinent positives: nausea and vomiting. The symptoms are described as stabbing. Modifying factors: The symptoms are alleviated by nothing, the symptoms are aggravated by nothing. Severity of pain: At its worst the pain was moderate in the emergency department the pain is unchanged. The patient has not experienced similar symptoms in the past. The patient has not recently seen a physician. 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 - Social history:: Smoking status: Patient uses tobacco products, smokes one-half pack cigarettes per day. - Ebola Screening: : Patient negative for fever greater than or equal to 101.5 degrees Fahrenheit, and additional compatible Ebola Virus Disease symptoms Patient denies exposure to infectious person Patient denies travel to an Ebola-affected area in the 21 days before illness onset No symptoms or risks identified at this time. ROS: 19:19 ENT: Negative for injury, pain, and discharge, Neck: Negative for injury, pain, and jr8 swelling, Cardiovascular: Negative for chest pain, palpitations, and edema, Respiratory: Negative for shortness of breath, cough, wheezing, and pleuritic chest pain, Back: Negative for injury and pain, MS/Extremity: Negative for injury and deformity, Skin: Negative for injury, rash, and discoloration, Neuro: Negative for headache, weakness, numbness, tingling, and seizure. 19:19 Abdomen/GI: Positive for abdominal pain, nausea and vomiting, Negative for diarrhea, constipation, abdominal cramps, abdominal distension, anorexia, dysphagia, hematemesis, black/tarry stool, rectal pain, rectal bleeding, bowel incontinence, flatulence. Exam: 19:19 Cardiovascular: Regular rate and rhythm with a normal S1 and S2. No gallops, murmurs, jr8 or rubs. Normal PMI, no JVD. No pulse deficits. Respiratory: Lungs have equal breath sounds bilaterally, clear to auscultation and percussion. No rales, rhonchi or wheezes noted. No increased work of breathing, no retractions or nasal flaring. Back: No spinal tenderness. No costovertebral tenderness. Full range of motion. Skin: Warm, dry with normal turgor. Normal color with no rashes, no lesions, and no evidence of cellulitis. MS/ Extremity: Pulses equal, no cyanosis. Neurovascular intact. Full, normal range of motion. Neuro: Awake and alert, GCS 15, oriented to person, place, time, and situation. Cranial nerves II-XII grossly intact. Motor strength 5/5 in all extremities. Sensory grossly intact. Cerebellar exam normal. Normal gait. 19:19 Abdomen/GI: Inspection: obese Bowel sounds: active, all quadrants, Palpation: soft, in all quadrants, moderate abdominal tenderness, in the right lower quadrant, mass, is not appreciated, rebound tenderness, is not appreciated, voluntary guarding, is not appreciated, involuntary guarding, is not appreciated, no appreciated organomegaly, Indicators: McBurney's point is not tender, Alvarado's sign is negative, Rovsing's sign is negative, Liver: no appreciated palpable abnormalities, tenderness, is not appreciated. Vital Signs: 18:41 BP 114 / 74; Pulse 108; Resp 20; Temp 98.3; Pulse Ox 98% on R/A; Weight 134.72 kg; aj Height 5 ft. 1 in. (154.94 cm); 22:08 BP 114 / 65; Pulse 84; Resp 16; Temp 97.7; Pulse Ox 99% ; Pain 0/10; tl1 18:41 Body Mass Index 56.12 (134.72 kg, 154.94 cm) aj MDM: 18:48 Patient medically screened. jr8 22:04 Differential diagnosis: appendicitis, bowel obstruction, non-specific abd pain, Ovarian jr8 Torsion, Pelvic Inflammatory Disease, Pyelonephritis, Ureterolithiasis, urinary tract infection. Data reviewed: vital signs, nurses notes, lab test result(s), radiologic studies, CT scan. Data interpreted: Pulse oximetry: on room air is 98 %. Interpretation: normal. Counseling: I had a detailed discussion with the patient and/or guardian regarding: the historical points, exam findings, and any diagnostic results supporting the discharge/admit diagnosis, lab results, radiology results, the need for outpatient follow up, a family practitioner, to return to the emergency department if symptoms worsen or persist or if there are any questions or concerns that arise at home. Special discussion: Based on the patient's Hx, exam, and Dx evaluation, there is no indication for emergent surgery or inpatient Tx. It is understood by the patient/guardian that if the Sx's persist or worsen they need to return immediately for re-evaluation. ED course: Discussed with patient that there is not acute findings noted on CT. Will put on pain medicine and needs to f/u with PCP over the weekend. If she were to worsen that we would want to see her immediately again. Patient is good with this and will follow up or come back . 10/20 18:57 Order name: Urine Dipstick--Ancillary (enter results); Complete Time: 20:16 ag 10/20 18:57 Order name: Urine --Ancillary (enter results); Complete Time: 20:16 ag 10/20 19:00 Order name: Basic Metabolic Panel; Complete Time: 20:16 8 10/20 19:00 Order name: CBC with Diff; Complete Time: 20:16 10/20 19:00 Order name: Creatinine for Radiology; Complete Time: 20:16 10/20 19:00 Order name: Hepatic Function; Complete Time: 20:16 10/20 19:00 Order name: Lipase; Complete Time: 20:16 10/20 19:00 Order name: IV Saline Lock; Complete Time: 19:22 10/20 19:00 Order name: Labs collected and sent; Complete Time: :22 10/20 20:17 Order name: CT Abd/Pelvis - W/Contrast; Complete Time: 21:31 jr8 Administered Medications: 21:43 Drug: Demerol 25 mg Route: IVP; Infused Over: 2 mins; Site: right antecubital; tl1 22:50 Follow up: Response: No adverse reaction; Marked relief of symptoms; Pain is decreased tl1 21:44 Drug: Promethazine 12.5 mg Route: IVP; Infused Over: 3 mins; Site: right antecubital; tl1 22:50 Follow up: Response: No adverse reaction; Marked relief of symptoms; Pain is decreased tl1 Disposition: 10/20/17 22:06 Discharged to Home. Impression: Abdominal and pelvic pain. - Condition is Stable. - Discharge Instructions: Abdominal Pain, Adult. - Prescriptions for Ibuprofen 800 mg Oral Tablet - take 1 tablet by ORAL route every 12 hours As needed take with food; 20 tablet. Tylenol- Codeine #3 300-30 mg Oral Tablet - take 2 tablets by ORAL route every 6 hours As needed; 20 tablet. Zofran 4 mg Oral Tablet - take 1 tablet by ORAL route every 12 hours As needed; 20 tablet. - Medication Reconciliation Form, Thank You Letter, Antibiotic Education, Prescription Opioid Use form. - Follow up: Private Physician; When: 48 Hours; Reason: Recheck today's complaints, Continuance of care, Re-evaluation by your physician. - Problem is new. - Symptoms have improved. Addendum: 10/24/2017 07:12 Co-signature as Attending Physician, Hector Fallon MD. r n Signatures: Dispatcher [employer] EDMichelle Mina RN Hector Alexander MD MD rn Roszak, Josh, PA PA jr8 Adele Holley RN RN tl1 Corrections: (The following items were deleted from the chart) 10/20 22:51 22:06 10/20/2017 22:06 Discharged to Home. Impression: Abdominal and pelvic pain. tl1 Condition is Stable. Forms are Medication Reconciliation Form, Thank You Letter, Antibiotic Education, Prescription Opioid Use. Follow up: Private Physician; When: 48 Hours; Reason: Recheck today's complaints, Continuance of care, Re-evaluation by your physician. Problem is new. Symptoms have improved. jr8
[2017-10-20 23:05] VITALS: BP 114/65; TEMP 97.7; O2SAT 99
== END 2017-10-20 22:51 | disposition home or self-care (01) ==
LOC: ER 18:31
DX: R10.2 Pelvic and perineal pain (principal); F17.210 Nicotine dependence, cigarettes, uncomplicated
CPT/HCPCS: 36415; 74177; 80048; 80076; 81003; 81025; 83690; 85025; 96374; 96375; 99284; J2175; J2550; Q9967

== ENCOUNTER 2017-12-04 22:25 | Emergency (ER) | payer SELFPAY ==
--- NOTE | 2017-12-04 22:43 | EDPHYS ---
Physician Documentation [facility] Name: Milka Landry Age: 27 yrs Sex: Female : 1990 Arrival Date: 12/04/2017 Time: 22:31 Bed 23 Private MD: ED Physician Dipak Sapp HPI: 12/04 22:50 This 27 yrs old Female presents to ER via Ambulatory with complaints of pm1 Toothache. 22:50 The patient presents with pain. The problem is located in the upper right second pm1 bicuspid (#4). Onset: The symptoms/episode began/occurred today. Duration: The symptoms are continuous. Modifying factors: The symptoms are alleviated by nothing, the symptoms are aggravated by nothing. Associated signs and symptoms: Pertinent negatives: dysphagia, fever, inability to eat, vomiting. Severity of symptoms: in the emergency department the symptoms are actually worse. The patient has experienced similar episodes in the past, multiple times. The patient has not recently seen a physician, has an appointment scheduled, tomorrow with dentist. 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 - Social history:: Smoking status: Patient/guardian denies using tobacco. - Ebola Screening: : No symptoms or risks identified at this time. ROS: 22:50 Constitutional: Negative for fever, chills, and weight loss, Eyes: Negative for injury, pm1 pain, redness, and discharge, Neck: Negative for injury, pain, and swelling, Cardiovascular: Negative for chest pain, palpitations, and edema, Respiratory: Negative for shortness of breath, cough, wheezing, and pleuritic chest pain, Abdomen/GI: Negative for abdominal pain, nausea, vomiting, diarrhea, and constipation. 22:50 Back: Negative for injury and pain, MS/Extremity: Negative for injury and deformity, Skin: Negative for injury, rash, and discoloration, Neuro: Negative for headache, weakness, numbness, tingling, and seizure. 22:50 ENT: Positive for dental pain, Negative for sore throat, difficulty swallowing, difficulty handling secretions. Exam: 22:50 Constitutional: This is a well developed, well nourished patient who is awake, alert, pm1 and in no acute distress. Head/Face: Normocephalic, atraumatic. Eyes: Pupils equal round and reactive to light, extra-ocular motions intact. Lids and lashes normal. Conjunctiva and sclera are non-icteric and not injected. Cornea within normal limits. Periorbital areas with no swelling, redness, or edema. 22:50 ENT: External ear(s): are unremarkable, Nose: is normal, Dental exam: dental caries, specifically in the upper right second bicuspid (#4), Voice: is normal. Vital Signs: 22:40 BP 145 / 98; Pulse 90; Resp 17; Temp 98.8; Pulse Ox 98% on R/A; Weight 129.27 kg; kr2 Height 5 ft. 2 in. (157.48 cm); Pain 9/10; 22:40 Body Mass Index 52.13 (129.27 kg, 157.48 cm) kr2 MDM: 22:38 Patient medically screened. pm1 22:41 Counseling: I had a detailed discussion with the patient and/or guardian regarding: the pm1 historical points, exam findings, and any diagnostic results supporting the discharge/admit diagnosis, the need for outpatient follow up, for definitive care, a dentist, to return to the emergency department if symptoms worsen or persist or if there are any questions or concerns that arise at home. 12/05 03:34 Data reviewed: vital signs. Data interpreted: Pulse oximetry: on room air is 98 %. pm1 Interpretation: normal. Administered Medications: 12/04 22:50 Drug: Acme 10 mg-325 mg 1 tabs Route: PO; kr2 22:50 Follow up: Response: Medication administered at discharge. kr2 22:50 Drug: Augmentin 875 mg Route: PO; kr2 22:50 Follow up: Response: Medication administered at discharge. kr2 Disposition: 12/05 06:43 Co-signature as Attending Physician, Dipak Sapp MD I agree with the assessment and tw4 plan of care. Attestation: The patient's history, exam findings, diagnostics, and a summary of any interventions or procedures was reviewed in detail with Elver Conn NP. Disposition: 12/04/17 22:42 Discharged to Home. Impression: Periapical abscess without sinus. - Condition is Stable. - Discharge Instructions: Dental Abscess, Dental Pain. - Prescriptions for Augmentin 875- 125 mg Oral Tablet - take 1 tablet by ORAL route every 12 hours for 10 days; 20 tablet. Tylenol- Codeine #3 300-30 mg Oral Tablet - take 2 tablets by ORAL route every 6 hours As needed; 20 tablet. - Medication Reconciliation Form, Thank You Letter, Antibiotic Education, Prescription Opioid Use form. - Follow up: Emergency Department; When: As needed; Reason: Worsening of condition. Follow up: Private Physician; When: 2 - 3 days; Reason: Recheck today's complaints, Continuance of care, Re-evaluation by your physician. - Problem is new. - Symptoms have improved. Signatures: Elver Conn, LANDSCAPE ARCHITECT LANDSCAPE ARCHITECT pm1 Marely Sutherland, RN RN kr2 Dipak Sapp MD MD tw4 Corrections: (The following items were deleted from the chart) 12/04 23:01 22:42 12/04/2017 22:42 Discharged to Home. Impression: Periapical abscess without kr2 sinus. Condition is Stable. Forms are Medication Reconciliation Form, Thank You Letter, Antibiotic Education, Prescription Opioid Use. Follow up: Emergency Department; When: As needed; Reason: Worsening of condition. Follow up: Private Physician; When: 2 - 3 days; Reason: Recheck today's complaints, Continuance of care, Re-evaluation by your physician. Problem is new. Symptoms have improved. pm1 12/05 03:34 12/04 22:50 The problem is located in the upper left second bicuspid, pm1 pm1
[2017-12-04] MEDS ORDERED: HYDROCODONE/APAP 10/325 TAB ONE (22:50)
[2017-12-04] MEDS ORDERED: AMOX/K CLAV 875 MG TAB ONE (22:51)
--- NOTE | 2017-12-04 23:02 | ER ---
Nurse's Notes [facility] Name: Milka Landry Age: 27 yrs Sex: Female : 1990 Arrival Date: 12/04/2017 Time: 22:31 Bed 23 Private MD: Diagnosis: Periapical abscess without sinus Presentation: 12/04 22:40 Acuity: HEATHER 5 kr2 22:40 Presenting complaint: Patient states: tooth ache, mouth and jaw pain that started this kr2 morning after she "broke her tooth." States she has had work done on the same tooth 3 different times but now the filling is gone and the tooth is cracked. She has a dentist appointment tomorrow. States, "The pain just got so bad I couldn't stand it". Transition of care: patient was not received from another setting of care. Onset of symptoms was December 04, 2017. Risk Assessment: Do you want to hurt yourself or someone else? Patient reports no desire to harm self or others. Initial Sepsis Screen: Does the patient meet any 2 criteria? No. Patient's initial sepsis screen is negative. Does the patient have a suspected source of infection? Yes: Other: broken tooth. Care prior to arrival: Medication(s) given: Patient reports she has been taking ibuprofen and aspirin. 22:40 Method Of Arrival: Ambulatory kr2 Triage Assessment: 22:40 General: Appears in no apparent distress. uncomfortable, well groomed, well developed, kr2 Behavior is calm, cooperative, appropriate for age. Pain: Complains of pain in mouth and jaw Pain radiates to face Pain currently is 9 out of 10 on a pain scale. Quality of pain is described as aching, Is continuous, Alleviated by nothing. EENT: Reports pain in mouth and jaw. Neuro: Level of Consciousness is awake, alert, obeys commands, Oriented to person, place, time, situation, Appropriate for age. Cardiovascular: Capillary refill < 3 seconds in bilateral fingers Patient's skin is warm and dry. Respiratory: Airway is patent Respiratory effort is even, unlabored, Respiratory pattern is regular, symmetrical. GI: Abdomen is flat, non-distended. : Denies burning with urination. Derm: Skin is intact, is healthy with good turgor, Skin is pink, warm \\T\\ dry. Musculoskeletal: Circulation, motion, and sensation intact. 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 - Social history:: Smoking status: Patient/guardian denies using tobacco. - Ebola Screening: : No symptoms or risks identified at this time. Screenin:40 Abuse screen: Denies threats or abuse. Denies injuries from another. Nutritional kr2 screening: No deficits noted. Tuberculosis screening: No symptoms or risk factors identified. Fall Risk None identified. Assessment: 22:40 General: See triage assessment. kr2 Vital Signs: 22:40 BP 145 / 98; Pulse 90; Resp 17; Temp 98.8; Pulse Ox 98% on R/A; Weight 129.27 kg; kr2 Height 5 ft. 2 in. (157.48 cm); Pain 9/10; 22:40 Body Mass Index 52.13 (129.27 kg, 157.48 cm) kr2 ED Course: 20:40 Patient has correct armband on for positive identification. Bed in low position. Call kr2 light in reach. Side rails up X 1. Pulse ox on. NIBP on. 22:31 Patient arrived in ED. es 22:38 Elver Conn NP is PHCP. pm1 22:38 Dipak Sapp MD is Attending Physician. pm1 22:40 Arm band placed on right wrist. kr2 22:44 Marely Sutherland, JANINE is Primary Nurse. kr2 22:53 Triage completed. kr2 23:00 No provider procedures requiring assistance completed. Patient did not have IV access kr2 during this emergency room visit. Administered Medications: 22:50 Drug: [place]phos 10 mg-325 mg 1 tabs Route: PO; kr2 22:50 Follow up: Response: Medication administered at discharge. kr2 22:50 Drug: Augmentin 875 mg Route: PO; kr2 22:50 Follow up: Response: Medication administered at discharge. kr2 Outcome: 22:42 Discharge ordered by . pm1 23:00 Discharged to home ambulatory, with family. kr2 23:00 Condition: good 23:00 Discharge instructions given to patient, Instructed on discharge instructions, follow up and referral plans. medication usage, Demonstrated understanding of instructions, follow-up care, medications, Prescriptions given X 2. 23:01 Patient left the ED. kr2 Signatures: Lindsey Miller Patrick, NP [employer]IMER EXPEDITOR [employer]RIER pm1 Marely Sutherland, RN RN kr2
[2017-12-04 23:05] VITALS: BP 145/98; TEMP 98.8; O2SAT 98
== END 2017-12-04 23:01 | disposition home or self-care (01) ==
LOC: ER 22:25
DX: K04.7 Periapical abscess without sinus (principal)
CPT/HCPCS: 99283

== ENCOUNTER 2018-08-07 14:24 | Emergency (ER) | payer SELFPAY ==
[2018-08-07] MEDS ORDERED: NA CHLORIDE 0.9% 1,000 ML ONE (15:41)
[2018-08-07] MEDS ORDERED: ALBUTEROL 2.5 MG/3 ML NEB SOL ONE (15:41)
[2018-08-07] MEDS ORDERED: IPRATROPIUM BROM 0.5MG/2.5ML ONE (15:41)
[2018-08-07 15:56] LABS: Absolute Lymphocytes (CBC) 2.6 K/uL (0.7-4.9); Absolute Monocytes 0.8 K/uL (0.1-1.3); Absolute Neutrophil 7.5 K/uL (1.8-8.0); Basophils % 0.9 % (0-1.3); Eosinophils % 2.6 % (0-4.4); Hematocrit 38.3 % (36.0-45.0); Lymphocytes % 23.3 % (15.3-44.8); MPV 7.7 fL (7.6-11.3); Monocytes % 7.3 % (3.3-12.3); RBC Red Blood Cell Count 4.58 M/uL (3.86-4.86)
[2018-08-07] MEDS ORDERED: AZITHROMYCIN 250 MG TAB ONE (16:11)
[2018-08-07] MEDS ORDERED: CEFTRIAXONE/SWI 1gm 1 GM/10 ML SYR ONE (16:11)
[2018-08-07 16:12] LABS: ALT/SGPT 20 U/L (12-78); AST/SGOT 13 U/L (15-37); Albumin 3.6 g/dL (3.4-5.0); Alkaline Phosphatase 83 U/L (45-117); BUN Blood Urea Nitrogen 12 mg/dL (7-18); Bicarbonate 29 mmol/L (21-32); Bilirubin Total 0.2 mg/dL (0.2-1.0); Glucose Level 104 mg/dL (74-106); Potassium 3.9 mmol/L (3.5-5.1); Protein, Total 7.5 g/dL (6.4-8.2); Sodium Level 142 mmol/L (136-145)
[2018-08-07 17:32] LABS: Urine Blood NEGATIVE (NEG); Urine Glucose NEGATIVE (NEG); Urine Protein NEGATIVE (NEG); Urine Specific Gravity 1.025 (1.005-1.030)
--- NOTE | 2018-08-07 17:35 | ER ---
Nurse's Notes [facility] Name: Milka Landry Age: 27 yrs Sex: Female : 1990 Arrival Date: 08/07/2018 Time: 14:25 Bed 30 Private MD: Diagnosis: Cough;Acute upper respiratory infection, unspecified Presentation: 08/07 14:27 Presenting complaint: Patient states: right ear pain, productive cough (has latent TB) sv with blood, chest pain, night sweats, sore throat has been sick on and off for weeks. Transition of care: patient was not received from another setting of care. Onset of symptoms is unknown. Care prior to arrival: None. 14:27 Method Of Arrival: Ambulatory sv 14:27 Acuity: HEATHER 3 sv 15:57 Risk Assessment: Do you want to hurt yourself or someone else? Patient reports no mg2 desire to harm self or others. Initial Sepsis Screen: Does the patient meet any 2 criteria? No. Patient's initial sepsis screen is negative. Does the patient have a suspected source of infection? No. Patient's initial sepsis screen is negative. 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 - Social history:: Smoking status: unknown. - Ebola Screening: : No symptoms or risks identified at this time. Screenin:55 Abuse screen: Denies threats or abuse. Denies injuries from another. Nutritional mg2 screening: No deficits noted. Tuberculosis screening: No symptoms or risk factors identified. Fall Risk None identified. Assessment: 15:55 General: Appears in no apparent distress. comfortable, Behavior is calm, cooperative. mg2 Pain: Complains of pain in right ear Pain does not radiate. Pain currently is 2 out of 10 on a pain scale. Quality of pain is described as aching, Pain began gradually, 1 day ago. Is intermittent. Neuro: Level of Consciousness is awake, alert, obeys commands, Oriented to person, place, time, situation. Cardiovascular: Capillary refill < 3 seconds Patient's skin is warm and dry. Respiratory: Airway is patent Respiratory effort is even, unlabored, Respiratory pattern is regular, symmetrical, Breath sounds are clear bilaterally. in right upper lobe, left upper lobe, right middle lobe, left lower lobe, right lower lobe, left posterior upper lobe, right posterior upper lobe, left posterior lower lobe, right posterior middle lobe and right posterior lower lobe. Respiratory: Reports cough that is. GI: No signs and/or symptoms were reported involving the gastrointestinal system. : No signs and/or symptoms were reported regarding the genitourinary system. EENT: Ear canal clear on left ear and right ear w/ drainage noted from left ear and right ear. Derm: Skin is intact, is healthy with good turgor, Skin is pink, warm \\T\\ dry. normal. Musculoskeletal: Circulation, motion, and sensation intact. Capillary refill < 3 seconds. 17:01 Reassessment: Patient appears in no apparent distress at this time. Patient and/or mg2 family updated on plan of care and expected duration. Pain level reassessed. Patient is alert, oriented x 3, equal unlabored respirations, skin warm/dry/pink. 17:38 Reassessment: patient up for discharge as soon as the ct and xray report comes back mg2 normal. Vital Signs: 14:29 BP 119 / 69; Pulse 103; Resp 20; Temp 98.2; Pulse Ox 100% ; Weight 129.27 kg; Height 5 sv ft. 1 in. (154.94 cm); Pain 0/10; 17:01 BP 123 / 72; Pulse 98; Resp 18; Pulse Ox 100% on R/A; mg2 14:29 Body Mass Index 53.85 (129.27 kg, 154.94 cm) sv ED Course: 14:25 Patient arrived in ED. as 14:29 Triage completed. sv 14:29 Arm band placed on. sv 14:31 Heather Ramirez FNP-C is PHCP. kb 14:32 Pete Gandara MD is Attending Physician. kb 14:34 Airborne precautions initiated. Patient placed in negative pressure room. sv 14:34 Notified Charge Nurse of pt's reason for visit. sv 14:45 Pete Gandara MD is Attending Physician. wilfredo 14:54 Piotr Bradford RN is Primary Nurse. mg2 15:46 Inserted saline lock: 20 gauge in right antecubital area, using aseptic technique. mg2 Blood collected. 15:50 Initial lab(s) drawn, by ED staff, sent to lab. jp3 15:56 No provider procedures requiring assistance completed. mg2 15:57 Patient has correct armband on for positive identification. Pulse ox on. NIBP on. mg2 16:57 Throat Culture Sent. mg2 16:59 Radiology exam delayed due to test not completed at this time. ml 17:15 Urine collected: clean catch specimen, clear, rodrigo colored. jp3 17:28 Chest Pa And Lat (2 Views) XRAY In Process Unspecified. EDMS 17:28 Urine Dipstick--Ancillary (enter results) Sent. jp3 17:29 Urine --Ancillary (enter results) Sent. jp3 17:35 Maxi Washington MD is Referral Physician. [facility] 17:36 CT Chest W/ Con In Process Unspecified. EDMS 18:09 IV discontinued, intact, bleeding controlled, No redness/swelling at site. Pressure aj dressing applied. Administered Medications: 15:46 Drug: NS 0.9% 1000 ml Route: IV; Rate: 1 bolus; Site: right antecubital; mg2 17:23 Follow up: Response: No adverse reaction; IV Status: Completed infusion mg2 15:46 Drug: Albuterol 5 mg Route: Inhalation; mg2 17:23 Follow up: Response: No adverse reaction; Marked relief of symptoms mg2 15:46 Drug: AtroVENT Aerosol 0.5 mg Route: Inhalation; mg2 17:23 Follow up: Response: No adverse reaction; Marked relief of symptoms mg2 16:05 Drug: Zithromax 500 mg Route: PO; mg2 17:23 Follow up: Response: No adverse reaction mg2 16:05 Drug: Rocephin - (cefTRIAXone) 1 grams Route: IVPB; Infused Over: 30 mins; Site: right mg2 antecubital; 17:23 Follow up: Response: No adverse reaction; IV Status: Completed infusion mg2 Outcome: 17:35 Discharge ordered by . wilfredo 18:09 Discharged to home ambulatory, with family. aj 18:09 Condition: good 18:09 Discharge instructions given to patient, family, Instructed on discharge instructions, follow up and referral plans. medication usage, Demonstrated understanding of instructions, follow-up care, medications, Prescriptions given X 4. 18:15 Patient left the ED. mg2 Signatures: Dispatcher [employer] EDMS Heather Ramirez, ELECTRICAL PROSPECTING ENGINEER-C ELECTRICAL PROSPECTING ENGINEER-Ckb Laura Garibay RN RN sv Myers, Amanda, RN RN aj Anderson, Corey, MD MD cha Martinez, Amelia as Lopez, Melissa ml Gardose, Michele, RN RN mg2 Pisarski, Jacob jp3 Corrections: (The following items were deleted from the chart) 14:30 14:27 Presenting complaint: Patient states: right ear pain, productive cough (has sv latent TB), sore throat has been sick on and off for weeks. sv 14:34 14:27 Presenting complaint: Patient states: right ear pain, productive cough (has sv latent TB), chest pain, sore throat has been sick on and off for weeks. sv
--- NOTE | 2018-08-07 17:35 | EDPHYS ---
Physician Documentation [facility] Name: Milka Landry Age: 27 yrs Sex: Female : 1990 Arrival Date: 08/07/2018 Time: 14:25 Bed 30 Private MD: ED Physician Pete Gandara HPI: 08/07 15:26 This 27 yrs old Female presents to ER via Ambulatory with complaints of Ear wilfredo Pain, Sore Throat, Cough. 15:26 The patient presents with pain. The complaints affect the right ear and left ear. wilfredo Onset: The symptoms/episode began/occurred 2 day(s) ago. Modifying factors: The symptoms are alleviated by nothing, the symptoms are aggravated by nothing. Associated signs and symptoms: The patient has no apparent associated signs or symptoms. Severity of symptoms: At their worst the symptoms were mild in the emergency department the symptoms are unchanged. cough. 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 - Social history:: Smoking status: unknown. - Ebola Screening: : No symptoms or risks identified at this time. ROS: 15:28 Constitutional: Negative for fever, chills, and weight loss, Eyes: Negative for injury, wilfredo pain, redness, and discharge, ENT: Negative for injury, pain, and discharge, Neck: Negative for injury, pain, and swelling, Cardiovascular: Negative for chest pain, palpitations, and edema, Abdomen/GI: Negative for abdominal pain, nausea, vomiting, diarrhea, and constipation, Back: Negative for injury and pain, : Negative for injury, bleeding, discharge, and swelling, MS/Extremity: Negative for injury and deformity, Skin: Negative for injury, rash, and discoloration, Neuro: Negative for headache, weakness, numbness, tingling, and seizure, Psych: Negative for depression, anxiety, suicide ideation, homicidal ideation, and hallucinations, Allergy/Immunology: Negative for hives, rash, and allergies, Endocrine: Negative for neck swelling, polydipsia, polyuria, polyphagia, and marked weight changes, Hematologic/Lymphatic: Negative for swollen nodes, abnormal bleeding, and unusual bruising. 15:28 Respiratory: Positive for cough, shortness of breath. Exam: 15:28 Constitutional: This is a well developed, well nourished patient who is awake, alert, wilfredo and in no acute distress. Head/Face: Normocephalic, atraumatic. Eyes: Pupils equal round and reactive to light, extra-ocular motions intact. Lids and lashes normal. Conjunctiva and sclera are non-icteric and not injected. Cornea within normal limits. Periorbital areas with no swelling, redness, or edema. ENT: Nares patent. No nasal discharge, no septal abnormalities noted. Tympanic membranes are normal and external auditory canals are clear. Oropharynx with no redness, swelling, or masses, exudates, or evidence of obstruction, uvula midline. Mucous membranes moist. Neck: Trachea midline, no thyromegaly or masses palpated, and no cervical lymphadenopathy. Supple, full range of motion without nuchal rigidity, or vertebral point tenderness. No Meningismus. Chest/axilla: Normal chest wall appearance and motion. Nontender with no deformity. No lesions are appreciated. Abdomen/GI: Soft, non-tender, with normal bowel sounds. No distension or tympany. No guarding or rebound. No evidence of tenderness throughout. Back: No spinal tenderness. No costovertebral tenderness. Full range of motion. Skin: Warm, dry with normal turgor. Normal color with no rashes, no lesions, and no evidence of cellulitis. MS/ Extremity: Pulses equal, no cyanosis. Neurovascular intact. Full, normal range of motion. Neuro: Awake and alert, GCS 15, oriented to person, place, time, and situation. Cranial nerves II-XII grossly intact. Motor strength 5/5 in all extremities. Sensory grossly intact. Cerebellar exam normal. Normal gait. Psych: Awake, alert, with orientation to person, place and time. Behavior, mood, and affect are within normal limits. 15:28 Cardiovascular: Rate: tachycardic, Rhythm: regular, Pulses: Pulses are 4+ in bilateral radial, brachial, femoral, popliteal, posterior tibial and and dorsalis pedis arteries.. Edema: is not appreciated, JVD: is not appreciated. Vital Signs: 14:29 BP 119 / 69; Pulse 103; Resp 20; Temp 98.2; Pulse Ox 100% ; Weight 129.27 kg; Height 5 sv ft. 1 in. (154.94 cm); Pain 0/10; 17:01 BP 123 / 72; Pulse 98; Resp 18; Pulse Ox 100% on R/A; mg2 14:29 Body Mass Index 53.85 (129.27 kg, 154.94 cm) sv MDM: 14:32 Patient medically screened. kb 14:45 Patient medically screened. [facility] 15:28 Data reviewed: vital signs, nurses notes, lab test result(s), radiologic studies. [facility] 08/07 15:25 Order name: CBC with Diff; Complete Time: 16:18 [facility] 08/07 15:25 Order name: Comprehensive Metabolic Panel; Complete Time: 16:18 [facility] 08/07 15:25 Order name: Flu; Complete Time: 17:32 [facility] 08/07 15:25 Order name: Strep; Complete Time: 17:32 [facility] 08/07 15:45 Order name: Webb Screen Profile; Complete Time: 17:32 [facility] [place] 16:41 Order name: Throat Culture [facility] 08/07 15:25 Order name: Chest Pa And Lat (2 Views) XRAY [facility] 08/07 15:26 Order name: CT Chest W/ Con [facility] 08/07 17:20 Order name: Urine Dipstick--Ancillary (enter results) 08/07 17:20 Order name: Urine --Ancillary (enter results) 08/07 15:25 Order name: Urine Dipstick-Ancillary (obtain specimen); Complete Time: 17:23 [facility] 08/07 15:25 Order name: Urine Test (obtain specimen); Complete Time: 17:23 [facility] Administered Medications: 15:46 Drug: NS 0.9% 1000 ml Route: IV; Rate: 1 bolus; Site: right antecubital; mg2 17:23 Follow up: Response: No adverse reaction; IV Status: Completed infusion mg2 15:46 Drug: Albuterol 5 mg Route: Inhalation; mg2 17:23 Follow up: Response: No adverse reaction; Marked relief of symptoms mg2 15:46 Drug: AtroVENT Aerosol 0.5 mg Route: Inhalation; mg2 17:23 Follow up: Response: No adverse reaction; Marked relief of symptoms mg2 16:05 Drug: Zithromax 500 mg Route: PO; mg2 17:23 Follow up: Response: No adverse reaction mg2 16:05 Drug: Rocephin - (cefTRIAXone) 1 grams Route: IVPB; Infused Over: 30 mins; Site: right mg2 antecubital; 17:23 Follow up: Response: No adverse reaction; IV Status: Completed infusion mg2 Disposition: 08/07/18 17:35 Discharged to Home. Impression: Cough, Acute upper respiratory infection, unspecified. - Condition is Stable. - Discharge Instructions: Upper Respiratory Infection, Adult, Cool Mist Vaporizer, Cough, Adult, [id number], Cough, Adult. - Prescriptions for Cheratussin AC 10- 100 mg/5 mL Oral liquid - take 10 milliliter by ORAL route every 4 hours; 160 milliliter. Medrol (Durga) 4 mg Oral Tablets, Dose Pack - take 1 tablet by ORAL route as directed - follow package instructions; 1 packet. Albuterol Sulfate 90 mcg/actuation - inhale 1-2 puff by INHALATION route every 4-6 hours; 1 Inhaler. Zithromax 500 mg Oral Tablet - take 1 tablet by ORAL route once daily for 5 days; 5 tablet. - Medication Reconciliation Form, Thank You Letter, Antibiotic Education, Prescription Opioid Use, Work release form form. - Follow up: Private Physician; When: 2 - 3 days; Reason: Recheck today's complaints, Continuance of care, Re-evaluation by your physician. Follow up: Maxi Washington; When: 2 - 3 days; Reason: Recheck today's complaints, Continuance of care, Re-evaluation by your physician. - Problem is new. - Symptoms have improved. Signatures: Dispatcher [employer] LIZZYWA Heather Ramirez, BARBC DIE CLEANER-Laura Sanders, RN RN Pete Lux MD MD cha Gardose, Michele, RN RN mg2 Corrections: (The following items were deleted from the chart) 18:15 17:35 08/07/2018 17:35 Discharged to Home. Impression: Cough; Acute upper respiratory mg2 infection, unspecified. Condition is Stable. Discharge Instructions: Upper Respiratory Infection, Adult, Cool Mist Vaporizer, Cough, Adult, [id number], Cough, Adult. Prescriptions for Cheratussin AC 10-100 mg/5 mL Oral liquid - take 10 milliliter by ORAL route every 4 hours; 160 milliliter, Medrol (Durga) 4 mg Oral Tablets, Dose Pack - take 1 tablet by ORAL route as directed - follow package instructions; 1 packet, Albuterol Sulfate 90 mcg/actuation - inhale 1-2 puff by INHALATION route every 4-6 hours; 1 Inhaler, Zithromax 500 mg Oral Tablet - take 1 tablet by ORAL route once daily for 5 days; 5 tablet. and Forms are Medication Reconciliation Form, Thank You Letter, Antibiotic Education, Prescription Opioid Use. Follow up: Private Physician; When: 2 - 3 days; Reason: Recheck today's complaints, Continuance of care, Re-evaluation by your physician. Follow up: Maxi Washington; When: 2 - 3 days; Reason: Recheck today's complaints, Continuance of care, Re-evaluation by your physician. Problem is new. Symptoms have improved. wilfredo
--- NOTE | 2018-08-07 17:40 | RAD REPORT ---
EXAM DESCRIPTION: RAD - Chest Pa And Lat (2 Views) - 08/07/2018 5:30 pm CLINICAL HISTORY: Productive cough, chest pain, night sweats COMPARISON: August 2017 TECHNIQUE: PA and lateral views of the chest were obtained. FINDINGS: The lungs are clear. No mediastinal or hilar mass or lymphadenopathy seen. No chest findi ng to suspect prior or current TB infection. Heart size is normal and central vasculature is within n ormal limits. No pleural effusion or pneumothorax seen. No acute bony finding noted. No aortic abn ormality. IMPRESSION: No acute cardiopulmonary process. No significant interval changes.
--- NOTE | 2018-08-07 17:41 | RAD REPORT ---
EXAM DESCRIPTION: CT - Thorax W/ Con - 08/07/2018 5:35 pm CLINICAL HISTORY: Chest pain, history of hemoptysis, history of latent TB COMPARISON: None. TECHNIQUE: Dynamically enhanced 5 mm thick images of the chest were obtained during administration o f 100 mL non-ionic IV contrast. All CT scans are performed using dose optimization technique as appropriate and may include automated exposure control or mA/KV adjustment according to patient size. FINDINGS: No mass or infiltrate in the lung parenchyma. No pleural thickening or pleural effusion. N o pneumothorax. No chest wall mass or abnormal axillary lymphadenopathy. No abnormal mediastinal or hilar mass or lymphadenopathy seen. No pericardial thickening or effusion. There are no endobronchial lesions identified. No esophageal a bnormality evident. No chest findings indicating current or prior TB infection. IMPRESSION: Negative contrast enhanced CT chest examination.
[2018-08-07 18:27] VITALS: TEMP 98.2; O2SAT 100
[2018-08-07 18:31] VITALS: BP 123/72
== END 2018-08-07 18:15 | disposition home or self-care (01) ==
LOC: ER 14:24
DX: J06.9 Acute upper respiratory infection, unspecified (principal); H92.03 Otalgia, bilateral
CPT/HCPCS: 36415; 71046; 71260; 80053; 81003; 81025; 85025; 86308; 87070; 87081; 87804; 96365; 99285; J0696; J7030; Q9967

== ENCOUNTER 2019-08-29 02:27 | Emergency (ER) | payer SELFPAY ==
--- OUTSIDE RECORDS SUMMARY | 2019-08-29 02:30 | XMS REPORT ---
:1990 Author Name Admin Address Unavailable Unavailable , PROBLEMS Condition Status Date Provider Notes Elevated hemoglobin A1c active Lydia Cook Hx of fibromyalgia active Lydia Cook Routine gynecological examination active Lydia Cook Irregular menses active Lydia Cook Screening for venereal disease active Lydia Bur ns MORBID OBESITY active Lydia Cook BMI 60.0-69.9 active Lydia Cook ENCOUNTERS Date Type Provider Location Encounter Diagn osis - Ambulatory Juju Hawley [facility] CLERK UNK Encounter - Ambulatory Referrals [facility] UNK Encounter Desktop [facility] Cricket Pittman - Ambulatory Marjorie [facility] UNK Encounter Health Services Contact Center - Ambulatory [facility] UNK [facility] - Ambulatory Rosario Yazmin [facility] UNK Encounter - Ambulatory Lydia Cook [facility] Adult UNK Encounter Lydia Cook Medicine [facility] - Ambulatory Rosario [place] [facility] UNK Encounter Bessy Villa - Ambulatory Rosario [place] [facility] CL[facility] UNK Encounter - Ambulatory Rosario [facility] UNK Encounter [facility] - Ambulatory Rosario [facility] UNK [facility]counter [facility] UNK Encounter Hours [facility] - Ambulatory Lydia Cook [facility] UNK Encounter Lydia Cook Medicine [facility] - Ambulatory Lydia Cook [facility] DAMAGE CLERK Elevated hemogl obin A1c Encounter Lydia Cook - Ambulatory Lydia Cook [facility] UNK Encounter Lydia Cook Medicine [facility] - Ambulatory Lydia Cook [facility] CL[facility] UNK Encounter Lydia Cook - Ambulatory Lydia Cook [facility] CL[facility] BMI 60.0-69.9MO RBID Encounter Lydia Cook OBESITYScreenin g for Juju Hawley venereal Namita Olivia diseaseIrregula r mensesRoutine gynecological examinationHx o f fibromyalgia VITAL SIGNS Date Observation Value Provider blood pressure, diastolic 84 mm[Hg] Juju Hawley " blood pressure, systolic 117 mm[Hg] Juju hodges " pulse rate E&M 89 /min Juju Hawley " temperature E&M 98.6 [degF] Juju Hawley " oxygen saturation, oximetry 98 % Rafy Hawley " height E&M 62 [in_i] Juju Hawley " height in centimeters E&M 157.48 cm Juju Hawley " weight E&M 336.38 lbs. Juju Hawley " weight in kilograms E&M 152.90 kg Juju hammond " blood pressure, site #1 left arm Juju hammond " Blood Pressure Position 01 sitting Juju Hawley " method used to obtain blood pressure automatic Juju Sorianoados " temperature site oral Juju Sorianoados Allergies No Known Allergy Information REASON FOR REFERRAL Start Date - End Date Service - Ultrasound - Pelvic/Transvag inal RESULTS Date Observation Value Provider Reference Interpretation Loc ation Range Human HPVNotTested [facility] Papillomavirus test result Neisseria Negative [facility] Negative gonorrhoeae DNA probe " chlamydia DNA Negative [facility] Negative probe hepatitis B Negative [facility] Negative surface antigen " thyroid 3.370 u[iU]/mL [facility] 0.450-4.500 stimulating hormone, serum " hepatitis C 0.7 [facility] 0.0-0.9 antibody, serum " HIV-CMIA Non Reactive [facility] Non (Chemiluminescent Reactive Microparticle Immuno Assay) " rapid plasma Non Reactive [facility] Non reagin antibody, Reactive serum " prolactin, serum 8.5 ng/mL [facility] 4.8-23.3 " testosterone, 41 ng/dL [facility] 8-48 total " hemoglobin A1C, 6.1 % [facility] 4.8-5.6 High blood, as % of total hemoglobin " follicle 2.8 m[iU]/mL [facility] stimulating hormone, serum " luteinizing 6.3 m[iU]/mL [facility] hormone, serum " alanine 17 1/L [facility] 0-32 aminotransferase (SGPT), serum " aspartate 15 1/L [facility] 0-40 aminotransferase (SGOT), serum " alkaline 79 1/L [facility] 39-117 phosphatase, serum " bilirubin, serum, <0.2 mg/dL [facility] 0.0-1.2 total " albumin/globulin 1.3 [facility] 1.2-2.2 ratio, serum " globulin, serum 3.1 [facility] 1.5-4.5 " albumin, serum 4.1 g/dL [facility] 3.5-5.5 " protein, total, 7.2 g/dL [facility] 6.0-8.5 serum " calcium, serum 9.2 mg/dL [facility] 8.7-10.2 " carbon dioxide, 25 mmol/L [facility] 20-29 venous blood " chloride, serum 99 mmol/L [facility] 96-106 " potassium, serum 4.7 mmol/L [facility] 3.5-5.2 " sodium, serum 138 mmol/L [facility] 134-144 " urea 11 [facility] 9-23 nitrogen/creatinin e ratio, serum " eGFR if 139 [facility] >59 [place]onegasque mL/min/((173/1 00).m2) " Estimated 121 [facility] >59 Glomerular mL/min/((173/1 Filtration Rate 00).m2) (calc) " creatinine, serum 0.64 mg/dL [facility] 0.57-1.00 " urea nitrogen, 7 mg/dL [facility] 6-20 blood " blood glucose, 102 mg/dL [facility] 65-99 High random " immature 0 % [facility] Not Estab. granulocytes, percentage of total cells, blood " basophil count, 0.0 x10E3/uL [facility] 0.0-0.2 absolute " Eosinophil 0.2 X10E3/UL [facility] 0.0-0.4 Absolute Count " monocyte count, 0.6 X10E3/UL [facility] 0.1-0.9 blood, automated " lymphocyte count, 2.7 X10E3/UL [facility] 0.7-3.1 blood, automated " Absolute 5.2 X10E3/UL [facility] 1.4-7.0 Neutrophils " basophils as 0 % [facility] Not Estab. percent of blood leukocytes " eosinophils as 2 % [facility] Not Estab. percent of blood leukocytes " monocytes as 7 % [facility] Not Estab. percent of blood leukocytes " lymphocytes as 31 % [facility] Not Estab. percent of blood leukocytes " neutrophils as 60 % [facility] Not Estab. percent of blood leukocytes " platelet count 370 X10E3/UL [facility] 150-450 " red blood cell 14.3 % [facility] 12.3-15.4 distribution width " mean corpuscular 32.9 G/DL [facility] 31.5-35.7 hemoglobin concentration, RBC " mean corpuscular 27.2 pg [facility] 26.6-33.0 hemoglobin, RBC " mean corpuscular 83 fL [facility] 79-97 volume, RBC " hematocrit, blood 38.9 % [facility] 34.0-46.6 " hemoglobin, blood 12.8 g/dL [facility] 11.1-15.9 " erythrocyte (RBC) 4.71 X10E6/UL [facility] 3.77-5.28 count " leukocyte count, 8.7 X10E3/UL [facility] 3.4-10.8 blood HISTORY OF IMMUNIZATIONS No Information Available Medications No Known Medication Information SOCIAL HISTORY Date Observation Value Provider time of call 06/04/2019 4:09 PM [place] taisha drug use, illicit Never Juju Hawley " alcohol use, frequency holidays/special occasion s Juju Hawley only " alcohol use Currently Juju Hawley " sexual orientation Bisexual Juju Lombardi s " sex at Female Juju Hawley " patient considered to be No Juju hodges homeless " is there any chance that you No Joseluis Hawley could be ? " passive cigarette smoke No Juju Reeves anados exposure " smoking status never smoker Juju Hawley FUNCTIONAL STATUS No Information Available MENTAL STATUS Date Observation Value Provider mental status examination: oriented to time, faustino ce, Namita Olivia orientation E&M and person " assessment of mood and affect no depression, anx iety, or Namita Olivia E&M agitation " Generalized Anxiety Disorder 0 Joseluis my Hawley Questionnaire - Question 2 " Generalized Anxiety Disorder 0 Joseluis my Hawley Questionnaire - Question 1 MEDICAL EQUIPMENT No Information Available FAMILY HISTORY No Information Available INSURANCE PROVIDERS Payer name Policy type / Coverage type Covered part y ID [employer] [place] [employer]) Medicaid [id number] Sliding Fee - Cat 1 Commercial insurance [employer] [id number] ADVANCE DIRECTIVES No Information Available TREATMENT PLAN Date Name Testosterone, Serum Prolactin FSH and LH Gc/Ct/Trich RPR, Rfx Qn RPR/Confirm TP HIV 1/2 ANTIGEN/ANTIBODY, FO URTH GENERATION W/RFL HBsAg Screen HCV Antibody TSH Rfx on Abnormal to Free T4 Pap IG, rfx HPV ASCU (21-29) Hemoglobin A1c Comp. Metabolic Panel (14) CBC With Differential/Platel et - Urinalysis - - In House New Patient Well Exam (18 - 39 Yrs) - [id number] HISTORY OF PROCEDURES Procedure Date Procedure Name Provider Procedure Notes Status Urinalysis - - In Lydia Cook completed House GOALS No Information Available HEALTH CONCERNS No Information Available
--- OUTSIDE RECORDS SUMMARY | 2019-08-29 02:30 | XMS REPORT ---
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 Elevated hemogl obin A1c Encounter Lydia Cook - Ambulatory Lydia Cook [facility] Adult UNK Encounter Lydia Cook Medicine [facility] - Ambulatory 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450-4.500 hormone, serum u[iU]/mL " hepatitis C 0.7 [facility] 0.0-0.9 antibody, serum " HIV-CMIA Non [facility] Non Reactive (Chemiluminescent Reactive Microparticle Immuno Assay) " rapid plasma reagin Non [facility] Non Reactive antibody, serum Reactive " prolactin, serum 8.5 ng/mL [facility] 4.8-23.3 " testosterone, total 41 ng/dL [facility] 8-48 " hemoglobin A1C, 6.1 % [facility] 4.8-5.6 High blood, as % of total hemoglobin " follicle 2.8 [facility] stimulating m[iU]/mL hormone, serum " luteinizing 6.3 [facility] hormone, serum m[iU]/mL " alanine 17 1/L [facility] 0-32 aminotransferase [...] [facility] 134-144 " urea 11 [facility] 9-23 nitrogen/creatinine ratio, serum " eGFR if 139 [facility] >59 [place]ymro mL/min/((17 3/100).m2) " Estimated 121 [facility] >59 Glomerular mL/min/((17 Filtration Rate 3/100).m2) (calc) " creatinine, serum 0.64 mg/dL [facility] 0.57-1.00 " urea nitrogen, 7 mg/dL [facility] 6-20 blood " blood glucose, 102 mg/dL [facility] 65-99 High random " immature 0 % [facility] Not Estab. granulocytes, percentage of total cells, blood " basophil count, 0.0 [facility] 0.0-0.2 absolute x10E3/uL " Eosinophil Absolute 0.2 [facility] 0.0-0.4 Count X10E3/UL " monocyte count, 0.6 [facility] 0.1-0.9 blood, automated X10E3/UL " lymphocyte count, 2.7 [facility] 0.7-3.1 blood, automated X10E3/UL " Absolute 5.2 [facility] 1.4-7.0 Neutrophils X10E3/UL " basophils as 0 % [facility] Not [...] of blood leukocytes " platelet count 370 [facility] 150-450 X10E3/UL " red blood cell 14.3 % [facility] 12.3-15.4 distribution width " mean corpuscular 32.9 G/DL [facility] 31.5-35.7 hemoglobin concentration, RBC " mean corpuscular 27.2 pg [facility] 26.6-33.0 hemoglobin, RBC " mean corpuscular 83 fL [facility] 79-97 volume, RBC " hematocrit, blood 38.9 % [facility] 34.0-46.6 " hemoglobin, blood 12.8 g/dL [facility] 11.1-15.9 " erythrocyte (RBC) 4.71 [facility] 3.77-5.28 count X10E6/UL " leukocyte count, 8.7 [facility] 3.4-10.8 blood X10E3/UL HISTORY OF IMMUNIZATIONS No Information Available Medications No Known Medication Information SOCIAL HISTORY Date Observation Value Provider drug use, illicit Never Juju Hawley " alcohol use, frequency holidays/special occasion s Juju Hawley only " alcohol use Currently Juju Hawley " sexual orientation Bisexual Juju Lombardi s " sex at Female Juju Hawley " patient considered to be No Juju hodges homeless " is there any chance that you No Joseluis my Chandan could be ? " passive cigarette smoke No Juju lanedos exposure " smoking status never smoker Juju Hawley FUNCTIONAL STATUS No Information Available MENTAL STATUS Date Observation Value Provider mental status examination: oriented to time, faustnio ce, Namita Olivia orientation E&M and person [...] / Coverage type Covered part y ID Sliding Fee - Cat 1 [employer] insurance [employer] [id number] ADVANCE DIRECTIVES No Information Available TREATMENT PLAN [...] Well Exam (18 - 39 Yrs) - [id number] HISTORY OF PROCEDURES Procedure Date Procedure Name Provider Procedure Notes Status Urinalysis - - In Lydia Cook completed House GOALS No Information Available HEALTH CONCERNS No Information Available
--- OUTSIDE RECORDS SUMMARY | 2019-08-29 02:30 | XMS REPORT ---
[...] Provider Location Encounter Diagn osis - Ambulatory Rosario Yazmin [facility] PERSONALIZATION SPECIALIST UNK Encounter - Ambulatory Lydia Cook [facility] Adult UNK Encounter Lydia Cook Medicine [facility] - Ambulatory Rosario Yaz[facility]ERSONALIZATION SPECIALIST UNK Encounter Bessy Trimbleo - Ambulatory Rosario Luke [facility]ERSONAL[facility]IST UNK Encounter - Ambulatory Rosario Yazmin [facility] UNK Encounter [facility] - Ambulatory Rosario Yazmin [facility] UNK Encounter [facility] - Amb[facility] [place] [facility] Encounter Hours [facility] Ambulatory [place] [facility] UNK Encounter Hours [facility] - Ambulatory [place] [facility] UNK Encounter Hours [facility] - Ambulatory [place] [facility] UNK Encounter Hours [facility] - Ambulatory [place] [facility] UNK Encounter Hours [facility] - Ambulatory Lydia Cook LM Adult UNK Encounter Lydia Cook Medicine [facility] - Ambulatory Lydia Cook [facility] PERSONALIZATION SPECIALIST Elevated hemogl obin A1c Encounter Lydia Cook - Ambulatory Lydia Cook LM Adult UNK Encounter Lydia Cook Medicine [facility] - Ambulatory Lydia Cook LM PERSONALIZATION SPECIALIST UNK Encounter Lydia Cook - Ambulatory Lydia Cook LM PERSONALIZATION SPECIALIST BMI 60.0-69.9MO RBID Encounter Lydia Cook OBESITYScreenin g for Juju Hawley venereal Namita Olivia diseaseIrregula r mensesRoutine gynecological examinationHx o f fibromyalgia VITAL SIGNS No Information Available Allergies No Known Allergy Information REASON FOR REFERRAL Start Date - End Date Service - Ultrasound - Pelvic/Transvag inal RESULTS Date Observation Value Provider Reference Interpretation Loc ation Range Human HPVNotTested Link Papillomavirus test result Neisseria Negative [facility] Negative [...] serum " eGFR if 139 [facility] >59 Polish mL/min/((173/1 00).m2) " Estimated 121 [facility] >59 [...] Observation Value Provider drug use, illicit Never Jujutanner Hawley " alcohol use, frequency holidays/special occasion s Juju Hawley only " alcohol use Currently Jujutanner Hawley " sexual orientation Bisexual Juju Lombardi s " sex at Female Juju Hawley " patient considered to be No Juju hodges homeless " is there any chance that you No Joseluis Hawley could be ? " passive cigarette smoke No Juju lanedo exposure " smoking status never smoker Jujutanner Hawley FUNCTIONAL STATUS No Information Available MENTAL STATUS Date Observation Value Provider mental status examination: oriented to time, faustino ce, Namita Olivia orientation E&M and person " assessment of mood and affect no depression, anx iety, or Namita Olivia E&M agitation " Generalized Anxiety Disorder 0 Joseluis my Hawley Questionnaire - Question 2 " Generalized Anxiety Disorder 0 Joseluis jim Hawley Questionnaire - Question 1 MEDICAL EQUIPMENT No Information Available FAMILY HISTORY No Information Available INSURANCE PROVIDERS Payer name Policy type / Coverage type Covered part y ID Sliding Fee - Cat 1 [employer] insurance [employer] [id number] ADVANCE DIRECTIVES No Information Available TREATMENT PLAN [...] Well Exam (18 - 39 Yrs) - [id number] HISTORY OF PROCEDURES Procedure Date Procedure Name Provider Procedure Notes Status Urinalysis - - In Lydia Cook completed House GOALS No Information Available HEALTH CONCERNS No Information Available
--- OUTSIDE RECORDS SUMMARY | 2019-08-29 02:30 | XMS REPORT ---
:1990 Author Name Admin Address Unavailable Unavailable , PROBLEMS Condition Status Date Provider Notes Hx of fibromyalgia active Lydia Cook Routine gynecological examination active Lydia Cook Irregular menses active Lydia Cook Screening for venereal disease active Lydia Bur ns MORBID OBESITY active Lydia Cook BMI 60.0-69.9 active Lydia Cook ENCOUNTERS Date Type Provider Location Encounter Diagn osis - Ambulatory Lydia Cook [facility] UNK Encounter Lydia Cook - Ambulatory Lydia Cook [facility] BMI 60.0-69.9MO RBID Encounter Lydia Cook OBESITYScreenin g for Juju Hawley venereal dise aseIrregular Namita Olivia mensesRoutine gynecological examinationHx o f fibromyalgia VITAL SIGNS No Information Available Allergies No Known Allergy Information REASON FOR REFERRAL Start Date - End Date Service - Ultrasound - Pelvic/Transvag inal RESULTS No Information Available HISTORY OF IMMUNIZATIONS No Information Available Medications No Known Medication Information SOCIAL HISTORY Date Observation Value Provider drug use, illicit Never Jujutanner SorianoHawley " alcohol use, frequency holidays/special occasion s Juju Hawley only " alcohol use Currently Juju Hawley " sexual orientation Bisexual Juju Sorianoado s " sex at Female Juju Hawley " patient considered to be No Juju G ranados homeless " is there any chance that you No Joseluis my Chandan could be ? " passive cigarette smoke No Juju Gr anados exposure " smoking status never smoker Juju Sorianoados FUNCTIONAL STATUS No Information Available MENTAL STATUS [...] y ID Sliding Fee - Cat 1 [employer] insurance [employer] [id number] ADVANCE DIRECTIVES No Information Available TREATMENT PLAN [...] Well Exam (18 - 39 Yrs) - [id number] HISTORY OF PROCEDURES Procedure Date Procedure Name Provider Procedure Notes Status Urinalysis - - In Lydia Cook completed House GOALS No Information Available HEALTH CONCERNS No Information Available
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
--- NOTE | 2019-08-29 11:52 | RAD REPORT ---
EXAM DESCRIPTION: Head C Spine Mpr Wo Con CLINICAL HISTORY: Trauma/pain COMPARISON: None available TECHNIQUE: Axial CT of the head obtained from the skull apex to the skull base without contrast. Axi al CT images of the cervical spine obtained from the skull base through the thoracic inlet. Sagittal and coronal reformatted images available. FINDINGS: CT head: No acute intracranial hemorrhage identified. No mass, mass effect, shift of the midline, abnormal ext ra-axial fluid collection or CT evidence of acute ischemic change identified. The ventricular system is unremarkable. No acute abnormalities of the supratentorial white matter, basal ganglia, cerebell um, or brainstem. The visualized paranasal sinuses and the mastoids are clear. No skull fracture identified. Visualized orbits and globes are unremarkable. Cervical CT: Straightening of the cervical lordosis may be secondary to patient positioning. The atlantoaxial, a tlantodental, and occipitoatlantal intervals are preserved. No fracture identified. Vertebral body height preserved. Prevertebral soft tissues are unremarkable. Intervertebral disc height preserved. Visualized skull base is intact. No fracture of the visualized facial bones. Visualized mastoid air c ells and paranasal sinuses are well aerated. Visualized thyroid is unremarkable. No cervical lymphadenopathy. No pneumothorax in the visualized lung apices. IMPRESSION: 1. No acute intracranial abnormality. 2. No acute fracture or subluxation of the cervical spine. This exam was performed according to our departmental dose-optimization program, which includes autom ated exposure control, adjustment of the mA and/or kV according to patient size and/or use of iterati ve reconstruction technique. Electronically signed by: Fracisco Falk 08/29/2019 4:50 AM CDT Due to temporary technical issues with the PACS/Fluency reporting system, reports are being signed by the in house radiologist as a courtesy to ensure prompt reporting. The interpreting radiologist is f ully responsible for the content of the report.
== END 2019-08-29 05:49 | disposition home or self-care (01) ==
LOC: ER 02:27
DX: S00.93XA Contusion of unspecified part of head, initial encounter (principal); S13.4XXA Sprain of ligaments of cervical spine, initial encounter; Y04.2XXA Assault by strike against or bumped into by another person, initial encounter; Y93.89 Activity, other specified; Y92.89 Other specified places as the place of occurrence of the external cause
CPT/HCPCS: 70450; 72125; 99283

== ENCOUNTER 2021-08-02 01:26 | Emergency (ER) | payer SELFPAY ==
--- OUTSIDE RECORDS SUMMARY | 2021-08-02 01:30 | XMS REPORT | Continuity of Care Document ---
:1990 Author Organization [facility] [place] [facility] t Address [address] [place] [address] Care Team Providers Name Role Phone Sobeida HOLLEY, A Primary Care Physician ayan Attending Clinician Unavailable MATTY Attending Clinician Unavailable Sobeida HOLLEY, Uyen Attending Clinician Uyen GARCES Attending Clinician Unavailable Matty HOLLEY Attending Clinician Kisha Attending Clinician Unavailable Joyce Attending Clinician [phone] Hawley Attending Clinician Unavailable Desktop Attending Clinician Unavailable Minor Attending Clinician Unavailable Zain Attending Clinician Unavailable Leslee Ohara Attending Clinician Unavailable Donavon Attending Clinician Unavailable Yazmin Attending Clinician Unavailable Villa Attending Clinician Unavailable Extra Hours Attending Clinician Unavailable Olivia Attending Clinician Unavailable Cook Unavailable [id number] Payers Payer Name Policy Type Policy Number Effective Date Expiration Date S trinidad Healthy [place] P [id number] 2019 2020 Women(HTW) 00:00:00 00:00:00 Healthy [place] CI [id number] 2019 2020 [facility](HTW) 00:00:00 00:00:00 Community Health Problems Condition Condition Condition Status Onset Resolution Last Treating Co mments Source Name Details Category Date Date Treatment Clinician Date 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 2-15 ity of 00:00: [place] 00 Medical Branch Gastroesop Gastroesop Disease Active 2020-04 U zachariah hageal hageal 0-11 ity of reflux reflux 00:00: [place] disease, disease, 00 Medica l unspecifie unspecifie Br anch d whether d whether esophagiti esophagiti s present s present Family Family Disease Active 2020-04 Univers history of history of 0-11 it y of heart heart 00:00: [place] disease disease 00 Medical Branch Bilateral Bilateral Disease Active 2020-04 Uni vers swelling swelling 0-11 ity of of feet of feet 00:00: [place] [facility] [place] Disease Active 2020-04 Univers (dyspnea (dyspnea 0-11 ity of on on 00:00: [place] exertion) exertion) 00 [facility] Chronic Chronic Disease Active 2020-04 Univers back pain, back pain, 0-11 it y of unspecifie unspecifie [place] back 00 Medical location, location, Bran ch unspecifie unspecifie d back d back pain pain laterality laterality PCOS PCOS Disease Active Univers (polycysti (polycysti 8-12 it y of c ovarian c [facility] 00 [facility] Vaginal Vaginal Disease Active Univers discharge discharge 6-16 ity of 00:00: [place] [facility] Anxiety Anxiety Disease Active Univers 4-13 ity of 00:00: [place] 00 Medical Branch Hidradenit Hidradenit Disease Active U zachariah is is 4-01 ity of suppurativ suppurativ 00:[place] 00 [facility] [place] Trouble Trouble Disease Active Univers getting to getting to 2-01 it y of sleep sleep 00:00: [place] 00 Medical Branch Numbness Numbness Disease Active 2019-04 Unive rs and and 0-04 ity of tingling tingling 00:00: [place] in both in both 00 Medical hands hands Branch Tingling Tingling Disease Active 2019-04 Unive rs of both of both 0-04 ity of feet feet 00:00: [place] [facility] Chronic Chronic Disease Active 2020-0 Univers depression depression 9-24 it y of 00:00: [place] 00 Medical Branch Iron Iron Disease Active 2020-0 Univers deficiency deficiency 9-10 it y of 00:00: [place] 00 Medical Branch Polyarthra Polyarthra Disease Active 2020-0 U nivers lgia lgia 9-10 ity of 00:00: [place] 00 Medical Branch Fibromyalg Fibromyalg Disease Active 2020-0 U nivers ia ia 9-10 ity of 00:00: [place] 00 Medical Branch Positive Positive Disease Active 2020- Unive rs VIOLETTE VIOLETTE 9-10 ity of (antinucle (antinucle 00:00[place] 00 Medical antibody) antibody) Bran ch Malar rash Malar rash Disease Active 2020-0 U nivers 9-10 ity of 00:00: [place] 00 Medical Branch Vitamin D Vitamin D Disease Active 2019- Uni vers deficiency deficiency 9-04 it y of 00:00: [place] 00 Medical Branch Morbid Morbid Disease Active 2020-0 Univers obesity obesity 8-20 ity of with BMI with BMI 00:00: [place] of of 00 Medical 60.0-69.9, 60.0-69.9, Br anch adult adult Menorrhagi Menorrhagi Disease Active 2020-0 U nivers a with a with 8-20 ity of irregular irregular 00:00[place] cycle cycle 00 [place] Elevated Condition Active 2018-042019-03-26 Joyce L egacy hemoglobin 2-10 17:39:45 Lydia Comm uni A1c 00:00: [place] 00 Health Elevated Elevated Disease Active 2018-04 Unive rs hemoglobin hemoglobin 2-10 it y of A1c A1c 00:00: [place] 00 Medical Branch Hx of Condition Active 2018-042019-03-25 Cook, Leg acy fibromyalg 05-26 09:21:00 Lydia Comm uni ia 00:00: [place] 00 Health Routine Condition Active 2018-042019-03-25 Cook, [place] gynecologi 05-26 09:21:00 [facility] Comm uni ramos 00:00: ty examinatio 00 Health n Irregular Condition Active 2018-042019-03-25 Cook, [facility] menses 05-26 09:21:00 Lydia Communi 00:00: ty 00 Health Screening Condition Active 2018-042019-03-25 Cook, [facility] for 05-26 09:21:00 [facility] Communi venereal 00:00: ty disease 00 Health MORBID Condition Active 2018-042019-03-25 Cook, Leg acy OBESITY 05-26 09:18:29 Lydia Presley 00:00: ty 00 Health BMI Condition Active 2018-042019-03-25 Cook, Leg acy 60.0-69.9 05-26 09:18:29 Lydia Burrowsu ni 00:00: ty 00 Health Body mass Body mass Disease Active 2018-04 Uni vers index index 05-26 ity of (BMI) (BMI) 00:00: [place] 60.0-69.9, 60.0-69.9, 00 Me dical adult adult Branch Irregular Irregular Disease Active 2018-04 Uni vers menses menses 05-26 ity of 00:00: [place] 00 Medical Branch Personal Personal Disease Active 2018-04 Unive rs history of history of 05-26 it y of other other 00:00: [place] diseases diseases 00 Medica l of the of the Branch musculoske musculoske letal letal system and system and connective connective tissue tissue Screening Screening Disease Active 2018-04 Uni vers for for 05-26 ity of venereal venereal 00:00: [place] disease disease 00 Medical Branch Type 2 Type 2 Disease Active Univers diabetes diabetes ity of mellitus mellitus [facility] TB lung, TB lung, Disease Active Unive rs latent latent ity of [facility] FIONA FIONA Disease Active Univers (obstructi (obstructi it y of ve sleep ve sleep [place] apnea) apnea) [facility] Allergies, Adverse Reactions, Alerts Allergy Allergy Status Severity Reaction(s) Onset Inactive Treating Comm ents Source Name Type Date Date Clinician NO KNOWN Drug Active Univers ALLERGIE Class ity of S [facility] Social History Social Habit Start Date Stop Date Quantity Comments Source Exposure to Not sure [facility] SARS-CoV-2 (event) [facility] Alcohol intake 2021-06-11 2021-06-11 Current drinker Unive rsity of 00:00:00 00:00:[address] [facility] (finding) Branch Cigarettes smoked 2020-01-10 2020-01-10 Univers ity of current (pack per 00:00:00 00:00:00 [facility] ) - Reported Branch Cigarette 2020-01-10 2020-01-10 University of pack-years 00:00:00 00:00:00 [facility] Tobacco use and 2020-01-10 2020-01-10 Never used Universit y of exposure 00:00:00 00:00:00 [facility] Alcohol Comment 2019-12-06 2019-12-06 occasional, Universi ty of 00:00:00 00:00:00 socially [place] [facility] History SDOH 2019-12-05 2019-12-05 99 University o f Alcohol Frequency 00:00:00 00:00:00 [place] M edical [facility] History SDDC 2019-12-05 2019-12-05 99 University o f Alcohol Std Drinks 00:00:00 00:00:00 [place] [facility] History SDOH 2019-12-05 2019-12-05 99 University o f Alcohol Binge 00:00:00 00:00:00 [place] [facility] Tobacco Comment 2019-12-05 2019-12-05 uses vape Universit y of 00:00:00 00:00:00 [facility] time of call 2019-06-04 2019-06-04 06/04/2019 4:09 [facility] 16:09:39 16:09:39 PM Health History of tobacco 2019-05-18 Cigarette Smoker University of use 00:00:00 [facility] drug use, illicit 2019-03-25 2019-03-25 Never [facility] 08:25:22 08:25:22 Health alcohol use, 2019-03-25 2019-03-25 holidays/special [facility] frequency 08:25:22 08:25:22 occasions only Health alcohol use 2019-03-25 2019-03-25 Currently [facility] 08:25:22 08:25:22 Health sexual orientation 2019-03-25 2019-03-25 Bisexual [facility] 08:25:22 08:25:22 Health sex at 2019-03-25 2019-03-25 Female [facility] 08:25:22 08:25:22 Health patient considered 2019-03-25 2019-03-25 No [facility] to be homeless 08:25:22 08:25:22 Health is there any chance 2019-03-25 2019-03-25 No [facility] that you could be 08:25:22 08:25:22 Health ? Sex [birth year] At [birth year] Universit y of 00:00:00 00:00:00 [place] [facility] Smoking Status Start Date Stop Date Source Former smoker 2020-01-10 00:00:00 2020-01-10 00:00:00 Universi ty of [place] [facility] [place] Never smoked tobacco [facility] [employer] (finding) Medications Ordered Filled Start Stop Current Ordering Indication Dosage Frequency Signature Comments Components Source Medication Medication Date Date Medication? Clinician (SIG) Name Name FERROCITE Yes [id number] TAKE ONE Univers 324 mg (106 3-25 (1) ity of mg iron) 00:00: [place](S[place] Tab 00 BY MOUTH Medical ONCE A Branch DAY. TIZANIDINE Yes [id number] TAKE ONE Univers 4 mg tablet 2-28 (1) ity of 00:00: TABLET(S) [place] 00 BY MOUTH Medical EVERY Branch EIGHT HOURS NEEDED FOR MUSCLE SPASMS. DULOXETINE Yes [id number] TAKE ONE Univers 60 mg 2-28 (1) ity of capsule 00:00: [place]LE(S) [place] 00 BY MOUTH Medical ONCE A Branch DAY. levonorgest Yes [id number] 1{tbl} Take 1 Univers rel-ethinyl 2-25 tablet by ity of estradiol 00:00: mouth [place] (VIENVA) 00 daily. Medical 0.1-20 Branch mg-mcg per tablet levonorgest Yes [id number] 1{tbl} Take 1 Univers rel-ethinyl 2-25 tablet by ity of estradiol 00:00: mouth [place] (VIENVA) 00 daily. Medical 0.1-20 Branch mg-mcg per tablet diazePAM 5 Yes TAKE ONE Uni vers mg tablet 2-19 (1) ity of 00:00: TABLET(S) [place] 00 BY MOUTH Medical EVERY Branch EIGHT HOURS FOR 5 DAYS NEEDED FOR MUSCLE SPASMS OR PAIN. diclofenac Yes TAKE ONE Uni vers 75 mg EC 2-19 (1) ity of tablet 00:00: TABLET(S) [place] 00 BY MOUTH Medical EVERY Branch TWELVE HOURS FOR 10 DAYS NEEDED FOR PAIN. TAKE WITH FOOD. acetaminoph Yes TAKE TWO Un arias en-codeine 2-19 (2) ity of 300-30 mg 00:00: TABLET(S) [place] tablet 00 BY MOUTH Medical EVERY SIX Branch HOURS NEEDED FOR PAIN. diazePAM 5 Yes TAKE ONE Uni vers mg tablet 2-19 (1) ity of 00:00: TABLET(S) [place] 00 BY MOUTH Medical EVERY Branch EIGHT HOURS FOR 5 DAYS NEEDED FOR MUSCLE SPASMS OR PAIN. diclofenac Yes TAKE ONE Uni vers 75 mg EC 2-19 (1) ity of tablet 00:00: TABLET(S) [place] 00 BY MOUTH Medical EVERY Branch TWELVE HOURS FOR 10 DAYS NEEDED FOR PAIN. TAKE WITH FOOD. acetaminoph Yes TAKE TWO Un arias en-codeine 2-19 (2) ity of 300-30 mg 00:00: TABLET(S) [place] tablet 00 BY MOUTH Medical EVERY SIX Branch HOURS NEEDED FOR PAIN. DULOXETINE 0 Yes [id number] TAKE ONE Univers 60 mg 2-16 (1) ity of capsule 00:00: CAP[place]LE(S) [place] 00 BY MOUTH Medical ONCE A Branch DAY. carBAMazepi 2021-0 Yes [id number] 200mg Take 1 Univers ne 200 mg 2-15 tablet by ity o f tablet 00:00: mouth [place] 00 every 12 Medical (twelve) Branch hours. carBAMazepi 0 Yes [id number] 200mg Take 1 Univers ne 200 mg 2-15 tablet by ity o f tablet 00:00: mouth [place] 00 every 12 Medical (twelve) Branch hours. ibuprofen Yes TAKE ONE Univ ers 800 mg 2-11 (1) ity of tablet 00:00: TABLET(S) [place] 00 BY MOUTH Medical EVERY Branch EIGHT HOURS NEEDED FOR DENTAL PAIN. traMADoL 50 Yes TAKE ONE Un arias mg tablet 2-11 (1) ity of 00:00: TABLET(S) [place] 00 BY MOUTH Medical EVERY SIX Branch HOURS NEEDED FOR DENTAL PAIN. ibuprofen 0 Yes TAKE ONE Univ ers 800 mg 2-11 (1) ity of tablet 00:00: TABLET(S) [place] 00 BY MOUTH Medical EVERY Branch EIGHT HOURS NEEDED FOR DENTAL PAIN. traMADoL 50 0 Yes TAKE ONE Un arias mg tablet 2-11 (1) ity of 00:00: TABLET(S) [place] 00 BY MOUTH Medical EVERY SIX Branch HOURS NEEDED FOR DENTAL PAIN. amoxicillin 2021-0 2021- No TAKE ONE U nivers 500 mg 2-11 02-25 (1) ity of capsule 00:00: 00:00 CAPSULE(S) [place] 00 :00 BY MOUTH Medical EVERY Branch EIGHT HOURS UNTIL GONE. clotrimazol 2021-0 Yes INSTILL Uni vers e 1 % 2-04 FIVE (5) ity of solution 00:00: DROPS INTO [place] 00 LEFT EAR 3 Medical TIMES Branch DAILY. clotrimazol 2021-0 Yes INSTILL Uni vers e 1 % 2-04 FIVE (5) ity of solution 00:00: DROPS INTO [place] 00 LEFT EAR 3 Medical TIMES Branch DAILY. ciprofloxac Yes INSTILL Uni vers in-dexameth 2-03 FOUR (4) ity of asone 00:00: DROPS INTO [place] 0.3-0.1 % 00 AFFECTED Medica l otic drops EAR EVERY Bran ch 12 HOURS FOR 7 DAYS. ciprofloxac 0 Yes INSTILL Uni vers in-dexameth 2-03 FOUR (4) ity of asone 00:00: DROPS INTO [place] 0.3-0.1 % 00 AFFECTED Medica l otic drops EAR EVERY Bran ch 12 HOURS FOR 7 DAYS. VIENVA 0 202- No [id number] TAKE ONE U nivers 0.1-20 -27 06-11 (1) ity of mg-mcg per 00:00: 00:00 TABLET(S) [place] tablet 00 :00 BY MOUTH Medical ONCE A Branch DAY. doxycycline 2021-0 Yes [id number] 100mg Take 1 Univers monohydrate 1-13 capsule by it y of 100 mg 00:00: mouth 2 [place] capsule 00 (two) Medical times Branch daily. doxycycline 2021-0 Yes [id number] 100mg Take 1 Univers monohydrate 1-13 capsule by it y of 100 mg 00:00: mouth 2 [place] capsule 00 (two) Medical times Branch daily. omeprazole 2021-0 Yes TAKE ONE Uni vers 20 mg 1-09 (1) ity of capsule 00:00: CAPSULE(S) [place] 00 BY MOUTH Medical ONCE A Branch DAY. TAKE 30 MINUTES BEFORE BREAKFAST. omeprazole 2021-0 Yes TAKE ONE Uni vers 20 mg -09 (1) ity of capsule 00:00: [place](S) [place] 00 BY MOUTH Medical ONCE A Branch DAY. TAKE 30 MINUTES BEFORE BREAKFAST. neomycin-po Yes [id number] 4[drp] Place 4 Univers lymyxin-hyd 1-06 Drops in ity of rocortisone 00:00: left ear 2 [place] 3.5- (two) Medical 1 times Branch mg/mL-unit/ daily. mL-% otic susp naproxen Yes TAKE ONE Unive rs 500 mg 1-06 (1) ity of tablet 00:00: TABLET(S) [place] 00 BY MOUTH Medical TWICE A Branch DAY WITH MEALS NEEDED FOR PAIN. neomycin-po Yes [id number] 4[drp] Place 4 Univers lymyxin-hyd 1-06 Drops in ity of rocortisone 00:00: left ear 2 [place] 3.5-,000 (two) Medical 1 times Branch mg/mL-unit/ daily. mL-% otic susp naproxen Yes TAKE ONE Unive rs 500 mg - (1) ity of tablet 00:00: TABLET(S) BY MOUTH Medical TWICE A Branch DAY WITH MEALS NEEDED FOR PAIN. methylPREDN No TAKE Un arias ISolone 4 04-22 02-25 DIRECTED ity o f mg tablets 00:00: 00:00 BY PACKAGE [place] 00 :00 [facility]. Branch FERROCITE 2020-04 Yes [id number] TAKE ONE Univers 324 mg (106 2-20 (1) ity of mg iron) 00:00: TABLET(S) [place] Tab 00 BY MOUTH Medical ONCE A Branch DAY. FERROCITE 2020-04- No [id number] TAKE ONE Univers 324 mg (106 2-20 03-25 (1) ity of mg iron) 00:00: 00:00 TABLET(S) [place] Tab 00 :00 BY MOUTH Medical ONCE A Branch DAY. Omeprazole 2020-04 Yes [id number] 20mg Take 1 Univers Magnesium 2-09 capsule by ity of 20 mg 00:00: mouth [place] capsule 00 daily. Medical Take 30 Branch mins before breakfast. famotidine 2020-04 Yes TAKE ONE Uni vers 20 mg 2-09 (1) ity of tablet 00:00: TABLET(S) [place] 00 BY MOUTH Medical TWICE A Branch DAY. DON'T TAKE WITH TIZANIDINE . Omeprazole 2020-04 Yes [id number] 20mg Take 1 Univers Magnesium 2-09 capsule by ity of 20 mg 00:00: mouth [place] capsule 00 daily. Medical Take 30 Branch mins before breakfast. famotidine 2020-04 Yes TAKE ONE Uni vers 20 mg 2-09 (1) ity of tablet 00:00: TABLET(S) [place] 00 BY MOUTH Medical TWICE A Branch DAY. DON'T TAKE WITH TIZANIDINE . cyanocobala 2020-04 Yes Take by Un arias min, 2-01 mouth. ity of vitamin 12:23: [place] B-12 56 Medical (VITAMIN Branch B12 ORAL) cyanocobala 2020-04 Yes Take by Un arias min, 2- mouth. ity of vitamin 12:23: [place] B-12 56 Medical (VITAMIN Branch B12 ORAL) fluticasone 2020-04 Yes [id number] 1{spray Use 1 Univers propionate 2-01 } [place] in ity o f 50 00:00: each [place] mcg/actuati 00 nostril Medic al on nasal daily. Branch spray fluticasone 2020-04 Yes [id number] 1{spray Use 1 Univers propionate 2-01 } [place] in ity o f 50 00:00: each [place] mcg/actuati 00 nostril Medic al on nasal daily. Branch spray TRAZODONE 2020-04 Yes [id number] TAKE 1/2-1 Univers 50 mg 1-17 TABLET(S) ity of tablet 00:00: BY MOUTH [place] 00 AT Medical BEDTIME. Branch TRAZODONE 2020-04 Yes [id number] TAKE 1/2-1 Univers 50 mg 1-17 TABLET(S) ity of tablet 00:00: BY MOUTH [place] 00 AT Medical BEDTIME. Branch GABAPENTIN 2020-04 Yes [id number] TAKE ONE Univers 300 mg 1-15 (1) ity of capsule 00:00: CAPSULE(S) [place] 00 BY MOUTH Medical THREE Branch TIMES A DAY. METFORMIN 2020-04 Yes [id number] TAKE ONE Univers 500 mg 1-15 (1) ity of tablet 00:00: TABLET(S) [place] 00 BY MOUTH Medical TWICE A Branch DAY WITH MEALS. GABAPENTIN 2020-04 Yes [id number] TAKE ONE Univers 300 mg 1-15 (1) ity of capsule 00:00: CAPSULE(S) [place] 00 BY MOUTH Medical THREE Branch TIMES A DAY. METFORMIN 2020-04 Yes [id number] TAKE ONE Univers 500 mg 1-15 (1) ity of tablet 00:00: TABLET(S) [place] BY MOUTH Medical TWICE A Branch DAY WITH MEALS. TIZANIDINE 2020-04 Yes [id number] TAKE ONE Univers 4 mg tablet 0-06 (1) ity of 00:00: TABLET(S) BY MOUTH Medical EVERY Branch EIGHT HOURS NEEDED FOR MUSCLE SPASMS OR PAIN. Blood-Gluco 2020-04 Yes [id number] Check U nivers se Meter 0-01 glucose ity of Kit 00:00: once daily [place] 00 before Medical breakfast; Branch ICD-10 code E11.9 Lancets 2020-04 Yes [id number] Check Unive rs Misc 0-01 glucose ity of 00:00: once daily [place] 00 before Medical breakfast; Branch ICD-10 code E11.9 blood sugar 2020-04 Yes [id number] Check U nivers diagnostic 0-01 glucose ity of (BLOOD 00:00: once daily [place] GLUCOSE 00 before Medical TEST) strip breakfast; Br anch ICD-10 code E11.9 liraglutide 2020-04 Yes [id number] 1.2mg inject 1.2 Univers (VICTOZA 0-01 mg under ity of 2-NONA) 0.6 00:00: the skin [place] mg/0.1 mL 00 daily. Medical (18 mg/3 Branch mL) injection Insulin 2020-04 Yes [id number] Use as Univ ers [place], 0-01 directed ity of Disposable, 00:00: [place] (PEN 00 Medical NEEDLE) 32 Branch gauge x 5/32" Ndle Blood-Gluco 2020-04 Yes [id number] Check U nivers se Meter 0-01 glucose ity of Kit 00:00: once daily [place] 00 before Medical breakfast; Branch ICD-10 code E11.9 Lancets 2020-04 Yes [id number] Check Unive rs Misc 0-01 glucose ity of 00:00: once daily [place] 00 before Medical breakfast; Branch ICD-10 code E11.9 blood sugar 2020-04 Yes [id number] Check U nivers diagnostic 0-01 glucose ity of (BLOOD 00:00: once daily [place] GLUCOSE 00 before Medical TEST) strip breakfast; Br anch ICD-10 code E11.9 liraglutide 2020-04 Yes [id number] 1.2mg inject 1.2 Univers (VICTOZA 0-01 mg under ity of 2-NONA) 0.6 00:00: the skin [place] mg/0.1 mL 00 daily. Medical (18 mg/3 Branch mL) injection Insulin 2020-04 Yes [id number] Use as Univ ers [place], 0-01 directed ity of Disposable, 00:00: [place] (PEN 00 Medical NEEDLE) 32 Branch gauge x 5/32" Ndle chlorhexidi Yes [id number] Apply to Univers ne 4 % 5-27 area(s) ity of external 00:00: once daily [place] liquid 00 as needed Medical for Wound Branch care. chlorhexidi Yes [id number] Apply to Univers ne 4 % 5-27 area(s) ity of external 00:00: once daily [place] liquid 00 as needed Medical for Wound Branch care. busPIRone Yes [id number] 7.5mg Take 0.5-1 Univers 15 mg 4-09 tablets by ity of tablet 00:00: mouth 2 [place] 00 (two) Medical times Branch daily as needed (anxiety). Cholecalcif Yes [id number] 2000U Take 1 Univers marjan, 4-09 capsule by ity of Vitamin D3, 00:00: mouth [place] (VITAMIN 00 daily. Medical D3) 50 mcg Take with Bran ch (2,000 food. unit) capsule busPIRone Yes [id number] 7.5mg Take 0.5-1 Univers 15 mg 4-09 tablets by ity of tablet 00:00: mouth 2 [place] 00 (two) Medical times Branch daily as needed (anxiety). Cholecalcif Yes [id number] 2000U Take 1 Univers marjan, 4-09 capsule by ity of Vitamin D3, 00:00: mouth [place] (VITAMIN 00 daily. Medical D3) 50 mcg Take with Bran ch (2,000 food. unit) capsule clindamycin Yes [id number] 1g Apply 1 g Univers -niacinamid 07-16 to area(s) it y of e 1-4 % Gel 00:00: 2 (two) [place] 00 times Medical daily. Branch clindamycin Yes [id number] 1g Apply 1 g Univers -niacinamid 4-01 to area(s) it y of e 1-4 % Gel 00:00: 2 (two) [place] 00 times Medical daily. [place] Immunizations Ordered Filled Immunization Date Status Comments [facility] Immunization Name Name SARS-COV-2 COVID-19 2021-01-15 Completed Unive rsity of PFIZER VACCINE 00:00:00 [facility] SARS-COV-2 COVID-19 2021-01-15 Completed Unive rsity of PFIZER VACCINE 00:00:00 [facility] SARS-COV-2 COVID-19 2020-12-25 Completed Unive rsity of PFIZER VACCINE 00:00:00 [facility] SARS-COV-2 COVID-19 2020-12-25 Completed Unive rsity of PFIZER VACCINE 00:00:00 [facility] Influenza Virus 2020-03-03 Completed Universit y of Vaccine 00:00:00 [facility] Influenza Virus 2020-03-03 Completed Universit y of Vaccine 00:00:00 [facility] HEPATITIS A 2002-07-23 Completed University of 00:00:00 [facility] Hep B, Adol or Pedi 2002-07-23 Completed Unive rsity of Dosage 00:00:00 [facility] HEPATITIS A 2002-07-23 Completed University of 00:00:00 [facility] Hep B, Adol or Pedi 2002-07-23 Completed Unive rsity of Dosage 00:00:00 [facility] Hep B, Adol or Pedi 2002-02-18 Completed Unive rsity of Dosage 00:00:00 [facility] Hep B, Adol or Pedi 2002-02-18 Completed Unive rsity of Dosage 00:00:00 [facility] MMR 1995-12-08 Completed University of 00:00:00 [facility] MMR 1995-12-08 Completed University of 00:00:00 [facility] Polio (IPV/OPV) 1993-11-09 Completed Universit y of 00:00:00 [facility] Polio (IPV/OPV) 1993-11-09 Completed Universit y of 00:00:00 [facility] Vital Signs Vital Name Observation Time Observation Value Comments Source Systolic blood 2021-06-11 20:09:00 115 mm[Hg] Univer sity of pressure [facility] Diastolic blood 2021-06-11 20:09:00 69 mm[Hg] Unive rsity of [facility] Heart rate 2021-06-11 20:09:00 104 /min [facility] Body temperature 2021-06-11 20:09:00 36.94 [facility] [place] [facility] Respiratory rate 2021-06-11 20:09:00 20 /min [facility] [place] [facility] Body weight 2021-06-11 20:09:00 160.755 kg [facility] BMI 2021-06-11 20:09:00 66.96 kg/m2 [facility] blood pressure, 2019-03-25 08:25:22 84 mm[facility]Hg[facility] blood pressure, 2019-03-25 08:25:22 117 mm[Hg] [facility] systolic [facility] pulse rate 2019-03-25 08:25:22 89 /min [facility] temperature E&M 2019-03-25 08:25:22 98.6 [degF] [facility] oxygen saturation, 2019-03-25 08:25:22 98 % [facility] oximetry Health height in 2019-03-25 08:25:22 157.48 cm [facility] centimeters [facility] weight E&M 2019-03-25 08:25:22 336.38 [lb_av] [facility] weight in kilograms 2019-03-25 08:25:22 152.90 kg L [facility] E& Health temperature site 2019-03-25 08:25:22 oral [facility] Procedures Procedure Date / Time Performed Performing Clinician Sour e PAP SMEAR-LIQUID 2021-06-11 21:37:00 Cassie Starr [facility] Urinalysis - 2019-03-25 09:18:43 Cook, Lydia [facility] Encounters Start End Encounter Admission Attending Care Care Encounter Source Date/Time Date/Time Type Type Clinicians Facility Department ID 2021-01-28 Outpatient ayan [facility] [id number] [facility] 17:12:03 [id number] [facility] Health 2021-01-28 Outpatient ayan [facility] [id number] Legacy 16:02:39 [id number] Communi [facility] 2022-08-26 2022-08-26 Outpatient R CASSIE STARR [facility] [id number] Univers 13:00:00 13:00:00 [id number] [facility] 2021-07-09 2021-07-09 [facility] [id number] Univers 00:00:00 00:00:00 Wondiful A HEALTH [id number] ity [facility] [id number] Golden as ANTWON?BLEA [id number] Al dicnadia STEELEY [address] [place] [address] OFFICE [facility] 2021-06-23 2021-06-23 Outpatient R SOBEIDA [facility] [id number] Univers 10:00:00 10:00:00 WONDIFUL ity o f [facility] 2021-06-11 2021-06-11 Office Cassie Starr [facility] [id number] Univers 14:00:00 15:07:17 Visit PRESTON [id number] i ty [facility] [id number] [id number] Al guillermo [address] 2021-06-11 2021-06-11 Outpatient R CASSIE STARR [facility] [id number] Univers 14:00:00 15:07:17 [facility] 2019-12-31 2019-12-31 Office Beard, [facility] Encounter/ Legacy 00:00:00 00:00:00 Visit Sheree [id number] C ommuni [id number] [facility] 2019-12-05 2019-12-05 Office Cook, [facility] Encounter/ Legacy 00:00:00 00:00:00 Visit Lydia [id number] Com virgilio [id number] Health 2019-06-19 2019-06-19 Office Hawley, [facility] Encounte r/ Legacy 00:00:00 00:00:00 Visit Juju [id number] Com virgilio [id number] [facility] 2019-06-04 2019-06-04 Office Desktop, Referrals [facility] Encounter/ Legacy 00:00:00 00:00:00 Visit Soila Harley [id number] [address] [place] [address] Aura Pittman [id number] ty Health 2019-05-28 2019-05-28 [facility]/ Legacy 00:00:00 00:00:00 Visit Marjorie Camilo [id number] Com virgilio [id number] ty Health 2019-04-23 2019-04-23 Office JADEN Raphael [facility] Encounte r/ Legacy 00:00:00 00:00:00 Visit Jayne [id number] Com virgilio 846403 ty Health 2019-04-22 2019-04-22 Office JADEN Raphael Encounte r/ Legacy 00:00:00 00:00:00 Visit Jayne [id number] Com virgilio 705425 ty Health 2019-04-01 2019-04-01 Office CHIDI Arce LC Encounter/ Legacy 00:00:00 00:00:00 Visit Rosario [id number] Com virgilio 979642 ty Health 2019-03-28 2019-03-28 Office Rosario Arce [facility] Enco unter/ Legacy 00:00:00 00:00:00 Visit Bessy Villa [id number] Communi [id number] ty Health 2019-03-28 2019-03-28 Office CHIDI Arce LC Encounter/ Legacy 00:00:00 00:00:00 Visit Rosario [id number] Com virgilio 453678 ty Health 2019-03-27 2019-03-27 Office CHIDI Arce LC Encounter/ Legacy 00:00:00 00:00:00 Visit Rosario [id number] Com virgilio 415124 ty Health 2019-03-27 2019-03-27 Office CHIDI Arce LC Encounter/ Legacy 00:00:00 00:00:00 Visit Rosario [id number] Com virgilio 418179 ty Health 2019-03-27 2019-03-27 Office Extra [facility] Encounter/ Legacy 00:00:00 00:00:00 Visit Jaylon [id number] Com virgilio Rossi 036497 ty Health 2019-03-27 2019-03-27 Office Extra LC [facility] Encounter/ Legacy 00:00:00 00:00:00 Visit Hours, [id number] Com virgilio Enid 205772 ty Health 2019-03-27 2019-03-27 Office Extra [facility] Encounter/ Legacy 00:00:00 00:00:00 Visit Hours, [id number] Com vrigilio [place] 882044 ty Health 2019-03-27 2019-03-27 Office Extra [facility] Encounter/ Legacy 00:00:00 00:00:00 Visit Hours, [id number] Com virgilio [place] 039865 ty Health 2019-03-27 2019-03-27 Office Extra [facility] Encounter/ Legacy 00:00:00 00:00:00 Visit Hours, [id number] Com virgilio [place]id 360207 ty Health 2019-03-26 2019-03-26 Office Cook, [facility] Encounter/ Legacy 00:00:00 00:00:00 Visit Lydia [id number] Com virgilio 377248 ty Health 2019-03-25 2019-03-25 Office Cook, [facility] Encounter/ Legacy 00:00:00 00:00:00 Visit Lydia [id number] Com virgilio 316439 ty Health 2019-03-25 2019-03-25 Office Cook, [facility] Encounter/ Legacy 00:00:00 00:00:00 Visit Lydia [id number] Com virgilio 740585 ty Health 2019-03-25 2019-03-25 Office Cook, [facility] Encounter/ Legacy 00:00:00 00:00:00 Visit Lydia [id number] Com virgilio 563008 ty Health 2019-03-25 2019-03-25 Office Cook, [facility] Encounter/ Legacy 00:00:00 00:00:00 Visit Lydia [id number] Com virgilio 767859 ty Health 2019-03-25 2019-03-25 Office Cook, Lydia [facility] Enco unter/ Legacy 00:00:00 00:00:00 Visit Juju Hawley [id number] Namita Gonzales [id number] Health Results Test Description Test Time Test Comments Results Result Comments Source Neisseria gonorrhoeae DNA probe 2019-03-25 14:51:00 Test Item Value Reference Range Interpretation Comme nts Neisseria gonorrhoeae DNA probe (test code = 08885-6) Negative Negative [facility] [id number] 14:51:00 Test Item Value Reference Range Interpretation Comments chlamydia DNA probe (test code = Negative Negative 19380-8) [facility] [id number] 12:08:00 Test Item Value Reference Range Interpretation Comments Human Papillomavirus test result HPVNotTested (test code = 22004-5) [facility] Healthbasophil count, [id number] 10:13:00 Test Item Value Reference Range Interpretation Comments basophil count, absolute (test 0.0 x10E3/uL 0.0-0.2 code = 87735-9) [facility] HealthEosinophil Absolute [id number] 10:13:00 Test Item Value Reference Range Interpretation Comments Eosinophil Absolute Count (test 0.2 X10E3/UL 0.0-0.4 code = 84823-7) [facility], blood, [id number] 10:13:00 Test Item Value Reference Range Interpretation Comments monocyte count, blood, automated 0.6 X10E3/UL 0.1-0.9 (test code = 742-7) [facility]allymph[facility] count, blood, [id number] 10:13:00 Test Item Value Reference Range Interpretation Comments lymphocyte count, blood, 2.7 X10E3/UL 0.7-3.1 automated (test code = 731-0) [facility]Absolute [id number] 10:13:00 Test Item Value Reference Range Interpretation Comments Absolute Neutrophils (test code 5.2 X10E3/UL 1.4-7.0 = 71679-1) [facility] as percent of blood [id number] 10:13:00 Test Item Value Reference Range Interpretation Comments basophils as percent of blood 0 % leukocytes (test code = 707-0) [facility] Healtheosinophils as percent of blood [id number] 10:13:00 Test Item Value Reference Range Interpretation Comments eosinophils as percent of blood 2 % leukocytes (test code = 713-8) [facility] Healthmonocytes as percent of blood [id number] 10:13:00 Test Item Value Reference Range Interpretation Comments monocytes as percent of blood 7 % leukocytes (test code = 5905-5) [facility] as percent of blood sduxmixymy4048-23-05 10:13:00 Test Item Value Reference Range Interpretation Comments lymphocytes as percent of blood 31 % leukocytes (test code = 736-9) [facility]neutrophils as percent of blood [id number] 10:13:00 Test Item Value Reference Range Interpretation Comments neutrophils as percent of blood 60 % leukocytes (test code = 770-8) [facility] Hospitalplatelet [id number] 10:13:00 Test Item Value Reference Range Interpretation Comments platelet count (test code = 370 X10E3/UL 150-450 777-3) [facility]red [facility] cell distribution [id number] 10:13:00 Test Item Value Reference Range Interpretation Comments red blood cell distribution width 14.3 % 12.3-15.4 (test code = 788-0) [facility] corpuscular hemoglobin concentration, [id number] 10:13:00 Test Item Value Reference Range Interpretation Comments mean corpuscular hemoglobin 32.9 G/DL 31.5-35.7 concentration, RBC (test code = 786-4) [facility] corpuscular hemoglobin, [id number] 10:13:00 Test Item Value Reference Range Interpretation Comments mean corpuscular hemoglobin, RBC 27.2 pg 26.6-33.0 (test code = 785-6) [facility] corpuscular volume, [id number] 10:13:00 Test Item Value Reference Range Interpretation Comments mean corpuscular volume, RBC (test code 83 fL 79-97 = 787-2) [facility]ocrit, [id number] 10:13:00 Test Item Value Reference Range Interpretation Comments hematocrit, blood (test code = 4544-3) 38.9 % 34.0-46.6 [facility]hemoglobin, [id number] 10:13:00 Test Item Value Reference Range Interpretation Comments hemoglobin, blood (test code = 12.8 g/dL 11.1-15.9 718-7) [facility] [id number] 10:13:00 Test Item Value Reference Range Interpretation Comments erythrocyte (RBC) count (test 4.71 X10E6/UL 3.77-5.28 code = 789-8) [facility]leuk[facility] count, [id number] 10:13:00 Test Item Value Reference Range Interpretation Comments leukocyte count, blood (test 8.7 X10E3/UL 3.4-10.8 code = 6690-2) [facility] Hospitalhepatitis B surface [id number] 10:13:00 Test Item Value Reference Range Interpretation Comments hepatitis B surface antigen (test Negative Negative code = 79) [facility] HospitalHIV-CMIA (Chemiluminescent Microparticle Immuno Assay) 2019-03-25 10:13:00 Test Item Value Reference Range Interpretation Comments HIV-CMIA (Chemiluminescent Non Reactive Non Reactive Microparticle Immuno Assay) (test code = 525117) [facility]hem[facility] A1C, blood, as % of total [id number] 10:13:00 Test Item Value Reference Range Interpretation Comments hemoglobin A1C, blood, as % of total 6.1 % 4.8-5.6 H hemoglobin (test code = 4548-4) [facility] Hospitalthyroid stimulating hormone, [id number] 10:13:00 Test Item Value Reference Range Interpretation Comments thyroid stimulating hormone, 3.370 u[iU]/mL 0.450-4.500 serum (test code = 3016-3) [facility]hepat[facility] C antibody, [id number] 10:13:00 Test Item Value Reference Range Interpretation Comments hepatitis C antibody, serum (test code 0.7 0.0-0.9 = 5199-5) [facility] Hospitalrapid plasma reagin antibody, [id number] 10:13:00 Test Item Value Reference Range Interpretation Comments rapid plasma reagin antibody, Non Reactive Non Reactive serum (test code = 5291-0) [facility]prolactin, [id number] 10:13:00 Test Item Value Reference Range Interpretation Comments prolactin, serum (test code = 8.5 ng/mL 4.8-23.3 2842-3) [facility] Hospitaltestosterone, [id number] 10:13:00 Test Item Value Reference Range Interpretation Comments testosterone, total (test code = 41 ng/dL 8-48 2986-8) [facility] Hospitalfollicle stimulating hormone, [id number] 10:13:00 Test Item Value Reference Range Interpretation Comments follicle stimulating hormone, 2.8 m[iU]/mL serum (test code = 2286-3) [facility] Hospitalluteinizing hormone, [id number] 10:13:00 Test Item Value Reference Range Interpretation Comments luteinizing hormone, serum (test 6.3 m[iU]/mL code = 06515-0) [facility] Hospitalalanine aminotransferase (SGPT), [id number] 10:13:00 Test Item Value Reference Range Interpretation Comments alanine aminotransferase (SGPT), serum 17 1/L 0-32 (test code = 1742-6) [facility] Hospitalaspartate aminotransferase (SGOT), [id number] 10:13:00 Test Item Value Reference Range Interpretation Comments aspartate aminotransferase (SGOT), 15 1/L 0-40 serum (test code = 1920-8) [facility] Hospitalalkaline phosphatase, [id number] 10:13:00 Test Item Value Reference Range Interpretation Comments alkaline phosphatase, serum (test code 79 1/L 39-117 = 1783-0) [facility]bilirubin, serum, [id number] 10:13:00 Test Item Value Reference Range Interpretation Comments bilirubin, serum, total (test code <0.2 mg/dL 0.0-1.2 = 1975-2) [facility] Healthalbumin/globulin ratio, [id number] 10:13:00 Test Item Value Reference Range Interpretation Comments albumin/globulin ratio, serum (test 1.3 1.2-2.2 code = 1759-0) [facility] Healthglobulin, [id number] 10:13:00 Test Item Value Reference Range Interpretation Comments globulin, serum (test code = 2336-6) 3.1 1.5-4.5 [facility] Healthalbumin, [id number] 10:13:00 Test Item Value Reference Range Interpretation Comments albumin, serum (test code = 1751-7) 4.1 g/dL 3.5-5.5 [facility] Healthprotein, total, [id number] 10:13:00 Test Item Value Reference Range Interpretation Comments protein, total, serum (test code = 7.2 g/dL 6.0-8.5 2885-2) [facility]calcium, [id number] 10:13:00 Test Item Value Reference Range Interpretation Comments calcium, serum (test code = 1999-8) 9.2 mg/dL 8.7-10.2 [facility] Hospitalcarbon dioxide, venous [id number] 10:13:00 Test Item Value Reference Range Interpretation Comments carbon dioxide, venous blood (test 25 mmol/L - code = 7-1) [facility] Healthchloride, [id number] 10:13:00 Test Item Value Reference Range Interpretation Comments chloride, serum (test code = 99 mmol/L 96-106 5-0) [facility]potassium, [id number] 10:13:00 Test Item Value Reference Range Interpretation Comments potassium, serum (test code = 4.7 mmol/L 3.5-5.2 2823-3) [facility] Hospitalsodium, [id number] 10:13:00 Test Item Value Reference Range Interpretation Comments sodium, serum (test code = 2951-2) 138 mmol/L 134-144 [facility] Hospitalurea nitrogen/creatinine ratio, [id number] 10:13:00 Test Item Value Reference Range Interpretation Comments urea nitrogen/creatinine ratio, serum 11 9-23 (test code = 3097-3) [facility] HospitaleGFR if [id number] 10:13:00 Test Item Value Reference Range Interpretation Comments eGFR if 139 >59 (test code = 89981-9) mL/min/((173/100).m2) [facility] HospitalEstimated Glomerular Filtration Rate (calc)2019-03-25 10:13:00 Test Item Value Reference Range Interpretation Comments Estimated Glomerular 121 >59 Filtration Rate (calc) mL/min/((173/100).m2 (test code = 69313-0) ) [facility] Hospitalcreatinine, [id number] 10:13:00 Test Item Value Reference Range Interpretation Comments creatinine, serum (test code = 0.64 mg/dL 0.57-1.00 0-0) [facility] Hospitalurea nitrogen, [id number] 10:13:00 Test Item Value Reference Range Interpretation Comments urea nitrogen, blood (test code = 7 mg/dL 6-20 3094-0) [facility] Hospitalblood glucose, [id number] 10:13:00 Test Item Value Reference Range Interpretation Comments blood glucose, random (test code = 102 mg/dL 65-99 H 2339-0) [facility], percentage of total cells, blood 2019-03-25 10:13:00 Test Item Value Reference Range Interpretation Comments immature granulocytes, percentage of 0 % total cells, blood (test code = 16842-2) [facility]
[2021-08-02] MEDS ORDERED: KETOROLAC 30 MG/ML INJ ONE (02:36)
[2021-08-02] MEDS ORDERED: dexAMETHasone 10 MG/ML VIAL ONE (02:36)
[2021-08-02] MEDS ORDERED: MEPERIDINE HCL 50 MG/ML ONE (02:36)
[2021-08-02] MEDS ORDERED: ONDANSETRON 4 MG/2 ML VIAL ONE (02:37)
--- NOTE | 2021-08-02 03:11 | EDPHYS ---
Physician Documentation [facility] Name: Milka Landry Age: 30 yrs Sex: Female : 1990 Arrival Date: 08/02/2021 Time: 01:29 Bed 11 Private MD: ED Physician Hector Fallon HPI: 08/02 01:49 This 30 yrs old Female presents to ER via Ambulatory with complaints of Leg rn Pain, Low Back Pain. 01:49 The patient presents with pain, that is acute. The complaints affect the right rn hamstring and right calvo and low back area. Onset: The symptoms/episode began/occurred yesterday. Modifying factors: The symptoms are alleviated by remaining still, the symptoms are aggravated by movement. Associated signs and symptoms: Pertinent negatives calf tenderness, fever, rash, swelling, warmth, weakness. Severity of symptoms: At their worst the symptoms were moderate, in the emergency department the symptoms are unchanged. The patient has experienced similar episodes in the past. The patient has not recently seen a physician. Pt reports right lower back pain, radiates down right leg, has had sciatica problems in past, no known trauma or change in physical activity recently. NO fever. No bowel/bladder complaints. no weakness/tingling of legs. Worse with movement. . [employer]: 01:37 LMP 07/25/2021 tw5 Historical: - PMHx: 01:37 "Latent" TB; Fibromyalgia; Diabetes mellitus; PCOS; Anxiety; Depressive disorder; tw5 Gastroesophageal reflux disease; Chronic back pain; Obesity; trigeminal neuragia; Sleep apnea; polyarthritis; sciatica; L3 pars defect; neuropathy- feet/arms/hands; - Immunization history:: Flu vaccine is not up to date. - Social history:: Smoking status: Reported history of juuling and/or vaping. - Family history:: not pertinent. - Hospitalizations: : No recent hospitalization is reported. ROS: 01:49 Constitutional: Negative for fever, chills, and weight loss, Cardiovascular: Negative rn for chest pain, palpitations, and edema, Respiratory: Negative for shortness of breath, cough, wheezing, and pleuritic chest pain, Abdomen/GI: Negative for abdominal pain, nausea, vomiting, diarrhea, and constipation, Back: + right lower back pain : Negative for injury, bleeding, discharge, and swelling, MS/Extremity: Negative for injury and deformity, Skin: Negative for injury, rash, and discoloration, Neuro: Negative for headache, weakness, numbness, tingling, and seizure. Exam: 01:49 Constitutional: Overweight female, no acute distress Abdomen/GI: Soft, non-tender rn Skin: Warm, dry, no rash or cellulitis MS/ Extremity: Pulses equal, no cyanosis. Neurovascular intact. Equal circumference. No focal tenderness Neuro: Awake and alert, GCS 15, oriented to person, place, time, and situation. Motor strength 5/5 in all extremities. Sensory grossly intact Vital Signs: 01:34 BP 149 / 79; Pulse 104; Resp 24; Temp 98.1; Pulse Ox 99% ; Weight 154.22 kg; Height 5 tw5 ft. 1 in. (154.94 cm); Pain 6/10; 01:41 BP 156 / 91; Pulse 100; Resp 18; Pulse Ox 100% on R/A; tw5 03:04 BP 113 / 68; Pulse 78; Resp 16; Pulse Ox 100% on R/A; jb4 01:34 Body Mass Index 64.24 (154.22 kg, 154.94 cm) tw5 MDM: 01:30 Patient medically screened. rn 03:08 Differential diagnosis: back pain, muscle spasm, sciatica. Data reviewed: vital signs, rn nurses notes, and as a result, I will discharge patient. Counseling: I had a detailed discussion with the patient and/or guardian regarding: the historical points, exam findings, and any diagnostic results supporting the discharge/admit diagnosis, the need for outpatient follow up, to return to the emergency department if symptoms worsen or persist or if there are any questions or concerns that arise at home. Response to treatment: the patient's symptoms have markedly improved after treatment, and as a result, I will discharge patient. Special discussion: I discussed with the patient/guardian in detail that at this point there is no indication for admission to the hospital. It is understood, however, that if the symptoms persist or worsen the patient needs to return immediately for re-evaluation. Based on the history and exam findings, there is no indication for further emergent testing or inpatient evaluation. I discussed with the patient/guardian the need to see the back specialist for further evaluation of the symptoms. 08/02 01:48 Order name: IV Start; Complete Time: 02:23 rn Administered Medications: 02:40 Drug: Zofran (Ondansetron) 4 mg Route: IVP; Site: right antecubital; jb4 03:28 Follow up: Response: No adverse reaction; Marked relief of symptoms; Nausea is decreasedjb4 02:42 Drug: Ketorolac 15 mg Route: IVP; Site: right antecubital; jb4 03:28 Follow up: Response: No adverse reaction; Marked relief of symptoms; Pain is decreased jb4 02:45 Drug: Decadron - Dexamethasone 10 mg Route: IVP; Site: right antecubital; jb4 03:29 Follow up: Response: No adverse reaction jb4 02:45 Drug: Demerol (meperidine) 50 mg Route: IVP; Site: right antecubital; jb4 03:28 Follow up: Response: No adverse reaction; Marked relief of symptoms; Pain is decreased jb4 Disposition Summary: 08/02/21 03:10 Discharge Ordered Location: Home rn Problem: an acute exacerbation rn Symptoms: have improved rn Condition: Stable rn Diagnosis - Radiculopathy, lumbosacral region rn Followup: rn - With: Private Physician - When: As needed - Reason: Recheck today's complaints, Re-evaluation by your physician Discharge Instructions: - Discharge Summary Sheet rn - Lumbosacral Radiculopathy rn - Pinched Nerve rn - Back Exercises rn Forms: - Medication Reconciliation Form rn - Thank You Letter rn - Antibiotic yarn inspector - Prescription Opioid Use rn Prescriptions: - Ultram 50 mg Oral Tablet - take 1 tablet by ORAL route every 6 hours As needed; 12 tablet; Refills: 0, rn Product Selection Permitted - Cyclobenzaprine 10 mg Oral Tablet - take 1 tablet by ORAL route every 8 hours As needed; 15 tablet; Refills: 0, rn Product Selection Permitted - Medrol (Durga) 4 mg Oral Tablets, Dose Pack - take 1 tablet by ORAL route as directed - follow package instructions; 1 rn packet; Refills: 0, Product Selection Permitted Signatures: Hector Fallon MD MD rn Bryson, James, RN RN jb4 Wood, Tiffany tw5 Corrections: (The following items were deleted from the chart) 01:39 01:37 PMHx: pre-diabetic; tw5 tw5
--- NOTE | 2021-08-02 03:11 | ER ---
Nurse's Notes [facility] Name: Milka Landry Age: 30 yrs Sex: Female : 1990 Arrival Date: 08/02/2021 Time: 01:29 Bed 11 Private MD: Diagnosis: Radiculopathy, lumbosacral region Presentation: 08/02 01:34 Chief complaint: Patient states: "Yesterday around 3 PM I started getting sharp pain in tw5 my leg by my shins. This happened a couple of times a n hour, then the pain started to move up to my knee caps. My pain is now in my lower back and it wraps around to my groin area. It is hard to walk, and hard to lift my leg, I cannot even pull down or lift up my pants without help. I tried some stretches, and I took ibuprofen and aleve nothing has helped.". Coronavirus screen: Vaccine status: Patient reports receiving the 2nd dose of the covid vaccine. URX. Ebola Screen: Patient negative for fever greater than or equal to 101.5 degrees Fahrenheit, and additional compatible Ebola Virus Disease symptoms Patient denies exposure to infectious person. Patient denies travel to an Ebola-affected area in the 21 days before illness onset. Initial Sepsis Screen: Does the patient meet any 2 criteria? HR > 90 bpm. Does the patient have a suspected source of infection? No. Patient's initial sepsis screen is negative. Risk Assessment: Do you want to hurt yourself or someone else? Patient reports no desire to harm self or others. Onset of symptoms was August 01, 2021 at 15:00. 01:34 Method Of Arrival: Ambulatory tw5 01:34 Acuity: HEATHER 3 tw5 Triage Assessment: 01:37 General: Appears obese, Behavior is calm, cooperative. Pain: Complains of pain in low tw5 back area and left low back Pain radiates to pelvis Pain currently is 6 out of 10 on a pain scale. 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 - Social history:: Smoking status: Reported history of juuling and/or vaping. - Family history:: not pertinent. - Hospitalizations: : No recent hospitalization is reported. Screenin:40 Abuse screen: Denies threats or abuse. Denies injuries from another. Nutritional tw5 screening: No deficits noted. Tuberculosis screening: No symptoms or risk factors identified. Fall Risk Gait- Weak (10 pts.). Assessment: 01:41 Cardiovascular: Pulses are palpable in right dorsalis pedis artery and left dorsalis tw5 pedis artery. 02:21 General: Appears in no apparent distress. uncomfortable, Behavior is calm, cooperative, jb4 appropriate for age. Pain: Complains of pain in right mid back and right low back Pain does not radiate. Pain currently is 10 out of 10 on a pain scale. Neuro: Level of Consciousness is awake, alert, obeys commands, Oriented to person, place, time, situation. Respiratory: Airway is patent Respiratory effort is even, unlabored, Respiratory pattern is regular, symmetrical. GI: No signs and/or symptoms were reported involving the gastrointestinal system. : No signs and/or symptoms were reported regarding the genitourinary system. EENT: No signs and/or symptoms were reported regarding the EENT system. Derm: Skin is intact, Skin is pink, warm \\T\\ dry. Musculoskeletal: Circulation, motion, and sensation intact. Range of motion: intact in all extremities. 03:04 Reassessment: Patient appears in no apparent distress at this time. Patient and/or jb4 family updated on plan of care and expected duration. Pain level reassessed. Patient is alert, oriented x 3, equal unlabored respirations, skin warm/dry/pink. Patient states feeling better. Vital Signs: 01:34 BP 149 / 79; Pulse 104; Resp 24; Temp 98.1; Pulse Ox 99% ; Weight 154.22 kg; Height 5 tw5 ft. 1 in. (154.94 cm); Pain 6; 01:41 BP 156 / 91; Pulse 100; Resp 18; Pulse Ox 100% on R/A; tw5 03:04 BP 113 / 68; Pulse 78; Resp 16; Pulse Ox 100% on R/A; jb4 01:34 Body Mass Index 64.24 (154.22 kg, 154.94 cm) tw5 ED Course: 01:29 Patient arrived in ED. bp1 01:30 Hector Fallon MD is Attending Physician. rn 01:37 Triage completed. tw5 01:37 Arm band placed on right wrist. tw5 01:40 No provider procedures requiring assistance completed. tw5 02:21 Nick Machuca, RN is Primary Nurse. jb4 02:23 Inserted saline lock: 22 gauge in right forearm, using aseptic technique. ds4 03:26 IV discontinued, intact, bleeding controlled, No redness/swelling at site. Pressure jb4 dressing applied. Administered Medications: 02:40 Drug: Zofran (Ondansetron) 4 mg Route: IVP; Site: right antecubital; jb4 03:28 Follow up: Response: No adverse reaction; Marked relief of symptoms; Nausea is decreasedjb4 02:42 Drug: Ketorolac 15 mg Route: IVP; Site: right antecubital; jb4 03:28 Follow up: Response: No adverse reaction; Marked relief of symptoms; Pain is decreased jb4 02:45 Drug: Decadron - Dexamethasone 10 mg Route: IVP; Site: right antecubital; jb4 03:29 Follow up: Response: No adverse reaction jb4 02:45 Drug: Demerol (meperidine) 50 mg Route: IVP; Site: right antecubital; jb4 03:28 Follow up: Response: No adverse reaction; Marked relief of symptoms; Pain is decreased jb4 Outcome: 03:10 Discharge ordered by . rn 03:26 Discharged to home ambulatory. jb4 03:26 Condition: stable 03:26 Discharge instructions given to patient, Instructed on discharge instructions, follow up and referral plans. no drinking with medication, no driving heavy equipment, medication usage, Demonstrated understanding of instructions, follow-up care, medications, Prescriptions given X 3. 03:26 Patient left the ED. jb4 Signatures: Hector Fallon MD MD rn Swanson, Donovan ds4 Nick Machuca, JAINNE RN jb4 Joanne Pelaez bp1 Lorraine Christian tw5 Corrections: (The following items were deleted from the chart) 01:39 01:37 PMHx: pre-diabetic; tw5 tw5
[2021-08-02 04:05] VITALS: TEMP 98.1
[2021-08-02 04:06] VITALS: O2SAT 100
[2021-08-02 04:08] VITALS: BP 113/68
== END 2021-08-02 03:26 | disposition home or self-care (01) ==
LOC: ER 01:26
DX: M54.17 Radiculopathy, lumbosacral region (principal); E11.9 Type 2 diabetes mellitus without complications; F41.9 Anxiety disorder, unspecified; F32.A Depression, unspecified; K21.9 Gastro-esophageal reflux disease without esophagitis
CPT/HCPCS: 96374; 96375; 99283; J1100; J2175; J2405

== ENCOUNTER 2022-01-03 17:40 | Emergency (ER) | payer SELFPAY ==
--- OUTSIDE RECORDS SUMMARY | 2022-01-03 17:47 | XMS REPORT | Continuity of Care Document ---
:1990 Author Organization [facility] t Address [address] [place] [address] Care Team Providers Name Role Phone Sandy Vidales MD Primary Care Physician [phone] [email or web address] Attending Clinician Unavailable Case Desi MEHTA A Attending Clinician Unavailable Sandy Vidales MD Attending Clinician Lydia Cook Attending Clinician [phone] Juju Hawley Attending Clinician Unavailable Namita Olivia Attending Clinician Unavailable Lydia Cook Unavailable [phone] Payers Payer Name Policy Type Policy Number Effective Date Expiration Date S ource [employer] [place] P [id number] 2019 2020 Women(HTW) 00:00:00 00:00:00 Problems Condition Condition Condition Status Onset Resolution Last Treating Co mments Source Name Details Category Date Date Treatment Clinician Date Trigeminal Trigeminal Disease Active U nivers neuralgia neuralgia 2-15 ity of 00:00: [place] 00 Medical Branch Gastroesop Gastroesop Disease Active 2020-04 U nivers hageal hageal 0-11 ity of reflux reflux 00:00: [place] disease, disease, 00 Medica l unspecifie unspecifie Br anch d whether d whether esophagiti esophagiti s present s present Family Family Disease Active 2020-04 Univers history of history of 0-11 it y of heart heart 00:00: [place] disease disease 00 Medical Branch Bilateral Bilateral Disease Active 2020-04 Uni vers swelling swelling 0-11 ity of of feet of feet 00:00: [place] 00 Medical Branch [place] Disease Active 2020-04 Univers (dyspnea (dyspnea 0-11 ity of on on 00:00: [place] exertion) exertion) 00 [facility] Chronic Chronic Disease Active 2020-04 Univers back pain, back pain, 0-11 it y of unspecifie [place]specifie [place] back [place] Medical location, location, Bran ch unspecifie unspecifie d back d back pain pain laterality laterality PCOS PCOS Disease Active Univers (polycysti (polycysti 8-12 it y of c ovarian c ovarian 00:00: [place] syndrome) syndrome) 00 [facility] Vaginal Vaginal Disease Active Univers discharge discharge 6-16 ity of 00:00: [place] [facility] Anxiety Anxiety Disease Active Univers 4-13 ity of 00:00: [place] [facility] Hidradenit Hidradenit Disease Active U nivers is is 4-01 ity of suppurativ suppurativ [place] [facility] Trouble Trouble Disease Active Univers getting to getting to 2-01 it y of sleep sleep 00:00: [place] 00 Medical Branch Numbness Numbness Disease Active 2019-04 Unive rs and and 0-04 ity of tingling tingling 00:00: [place] in both in both 00 Medical hands hands Branch Tingling Tingling Disease Active 2019-04 Unive rs of both of both 0-04 ity of feet feet 00:00: [place] 00 Medical Branch Chronic Chronic Disease Active Univers depression depression 9-24 it y of 00:00: [place] 00 Medical Branch Iron Iron Disease Active Univers deficiency deficiency 9-10 it y of 00:00: [place] 00 Medical Branch Polyarthra Polyarthra Disease Active 2020- U nivers lgia lgia 9-10 ity of 00:00: [place] [facility] Fibromyalg Fibromyalg Disease Active 2020- U nivers ia ia 9-10 ity of 00:00: [place] [facility] Positive Positive Disease Active Unive rs VIOLETTE VIOLETTE 9-10 ity of (antinucle (antinucle [place] 00 Medical antibody) antibody) Bran ch Malar rash Malar rash Disease Active 2020- U nivers 9-10 ity of 00:00: [place] [facility] Vitamin D Vitamin D Disease Active Uni vers deficiency deficiency 9-04 it y of 00:00: [place] [facility] Morbid Morbid Disease Active Univers obesity obesity 8-20 ity of with BMI with BMI 00:00: [place] of of 00 Medical 60.0-69.9, 60.0-69.9, Br anch adult adult Menorrhagi Menorrhagi Disease Active U nivers a with a with 8-20 [place] of irregular irregular 00:00[place] 00 [place] Elevated Elevated Disease Active 2018-04 Unive rs hemoglobin hemoglobin 2-10 it y of A1c A1c 00:00: [place] 00 Medical Branch Elevated Condition Active 2018-042019-03-26 Charlene Cook egacy hemoglobin 2-10 17:39:45 L[facility] Comm uni A1c 00:00: 00 Health Body mass Body mass Disease Active 2018-04 Uni vers index index 2-09 ity of (BMI) (BMI) 00:00: [place] 60.0-69.9, 60.0-69.9, 00 Me dical adult adult Branch Irregular Irregular Disease Active 2018-04 Uni vers menses menses 2-09 ity of 00:00: [place] 00 Medical Branch Personal Personal Disease Active 2018-04 Unive rs history of history of 2-09 it y of other other 00:00: [place] diseases diseases 00 Medica l of the of the Branch musculoske musculoske letal letal system and system and connective connective tissue tissue Screening Screening Disease Active 2018-04 Uni vers for for 2-09 ity of venereal venereal 00:00: [place] disease disease 00 Medical Branch Hx of Condition Active [...] Cook, Leg acy OBESITY 05-26 09:18:29 Lydia Communi 00:00: [place] 00 Health BMI Condition Active 2018-042019-03-25 Cook, Leg acy 60.0-69.9 05-26 09:18:29 Lydia Commu ni 00:00: [place] 00 Health Type 2 Type 2 Disease Active Univers diabetes diabetes ity of mellitus mellitus [facility] TB lung, TB lung, Disease Active Unive rs latent latent ity of [facility] FIONA FIONA Disease Active Univers (obstructi (obstructi it y of ve sleep ve sleep [place] apnea) apnea) [facility] Allergies, Adverse Reactions, Alerts This patient has no known allergies or adverse reactions. Social History Social Habit Start Date Stop Date Quantity Comments Source Alcohol intake 2021-06-11 2021-06-11 Current drinker Unive rsity of 00:00:00 00:00:00 of alcohol [facility] (finding) Branch Cigarettes smoked 2020-01-10 2020-01-10 Univers ity of current (pack per 00:00:00 00:00:00 [place] ) - Reported Branch Cigarette pack-years 2020-01-10 2020-01-10 Univ ersity of 00:00:00 00:00:00 [facility] Tobacco use and 2020-01-10 2020-01-10 Never used Universit y of exposure 00:00:00 00:00:00 [facility] Alcohol Comment 2019-12-06 2019-12-06 occasional, Universi ty of 00:00:00 00:00:00 socially [facility] History SDOH Alcohol 2019-12-05 2019-12-05 99 Univ ersity of Frequency 00:00:00 00:00:00 [facility] History SDOH Alcohol 2019-12-05 2019-12-05 99 Univ ersity of Std Drinks 00:00:00 00:00:00 [facility] History SDOH Alcohol 2019-12-05 2019-12-05 99 Univ ersity of Binge 00:00:00 00:00:00 [facility] Tobacco Comment 2019-12-05 2019-12-05 uses vape Universit y of 00:00:00 00:00:00 [facility] time of call 2019-06-04 2019-06-04 06/04/2019 4:09 [facility] 16:09:39 16:09:39 PM Health History of tobacco 2019-05-18 Cigarette Smoker University of use 00:00:00 [facility] albumin, serum 2019-03-25 2019-03-25 4.1 g/dL [facility] 10:13:00 10:13:00 Health drug use 2019-03-25 2019-03-25 Never [facility] 08:25:22 08:25:22 Health alcohol use, 2019-03-25 2019-03-25 holidays/special [facility] frequency 08:25:22 08:25:22 occasions only Health alcohol use 2019-03-25 2019-03-25 Currently [facility]y 08:25:22 08:25:22 Health sexual orientation 2019-03-25 2019-03-25 Bisexual [facility] 08:25:22 08:25:22 Health sex at 2019-03-25 2019-03-25 Female [facility] 08:25:22 08:25:22 Health patient considered 2019-03-25 2019-03-25 No [facility] to be homeless 08:25:22 08:25:22 Health PHQ2 Questionairre 2019-03-25 2019-03-25 [facility] Score 08:25:22 08:25:22 Health is there any chance 2019-03-25 2019-03-25 No [facility] that you could be 08:25:22 08:25:22 Health ? Smoking Status Start Date Stop Date Source Former smoker 2020-01-10 00:00:00 2020-01-10 00:00:00 [facility] [place] [facility] Never smoked tobacco [facility] (finding) Medications Ordered Filled Start Stop Current Ordering Indication Dosage Frequency Signature Comments Components Source Medication Medication Date Date Medication? Clinician (SIG) Name Name levonorgest Yes [id number] 1{tbl} Take 1 Univers rel-ethinyl 5-31 tablet by ity of estradiol 00:00: mouth [place] (VIENVA) 00 daily. Medical 0.1-20 Branch mg-mcg per tablet TIZANIDINE Yes [id number] TAKE ONE Univers 4 mg tablet 4-28 (1) ity of 00:00: TABLET(S) [place] 00 BY MOUTH Medical EVERY Branch EIGHT HOURS NEEDED FOR MUSCLE SPASMS. TIZANIDINE Yes [id number] TAKE ONE Univers 4 mg tablet 4-28 (1) ity of 00:00: TABLET(S) [place] 00 BY MOUTH Medical EVERY Branch EIGHT HOURS NEEDED FOR MUSCLE SPASMS. TIZANIDINE Yes [id number] TAKE ONE Univers 4 mg tablet 4-28 (1) ity of 00:00: TABLET(S) [place] 00 BY MOUTH Medical EVERY Branch EIGHT HOURS NEEDED FOR MUSCLE SPASMS. TIZANIDINE Yes [id number] TAKE ONE Univers 4 mg tablet 4-28 (1) ity of 00:00: TABLET(S) [place] 00 BY MOUTH Medical EVERY Branch EIGHT HOURS NEEDED FOR MUSCLE SPASMS. TIZANIDINE Yes [id number] TAKE ONE Univers 4 mg tablet 4-28 (1) ity of 00:00: TABLET(S) [place] 00 BY MOUTH Medical EVERY Branch EIGHT HOURS NEEDED FOR MUSCLE SPASMS. TIZANIDINE Yes [id number] TAKE ONE Univers 4 mg tablet 4-28 (1) ity of 00:00: TABLET(S) [place] 00 BY MOUTH Medical EVERY Branch EIGHT HOURS NEEDED FOR MUSCLE SPASMS. TIZANIDINE 2021- Yes [id number] TAKE ONE Univers 4 mg tablet 4-28 (1) ity of 00:00: TABLET(S) [place] 00 BY MOUTH Medical EVERY Branch EIGHT HOURS NEEDED FOR MUSCLE SPASMS. FERROCITE Yes [id number] TAKE ONE Univers 324 mg (106 3-25 (1) ity of mg iron) 00:00: [place](S[place] Tab 00 BY MOUTH Medical ONCE A Branch DAY. FERROCITE 2022-0 Yes [id number] TAKE ONE Univers 324 mg (106 3-25 (1) ity of mg iron) 00:00: [place]T(S[place] Tab 00 BY MOUTH Medical ONCE A Branch DAY. FERROCITE 2022-0 Yes [id number] TAKE ONE Univers 324 mg (106 3-25 (1) ity of mg iron) 00:00: TABLE[place](S[place] Tab 00 BY MOUTH Medical ONCE A Branch DAY. FERROCITE 2-0 Yes [id number] TAKE ONE Univers 324 mg (106 3-25 (1) ity of mg iron) 00:00: TABLET(S[place] Tab 00 BY MOUTH Medical ONCE A Branch DAY. FERROCITE 2-0 Yes [id number] TAKE ONE Univers 324 mg (106 3-25 (1) ity of mg iron) 00:00: TABLET(S[place] Tab 00 BY MOUTH Medical ONCE A Branch DAY. FERROCITE 2021-0 Yes [id number] TAKE ONE Univers 324 mg (106 3-25 (1) ity of mg iron) 00:00: TABLET(S[place] Tab 00 BY MOUTH Medical ONCE A Branch DAY. FERROCITE 2-0 Yes [id number] TAKE ONE Univers 324 mg (106 3-25 (1) ity of mg iron) 00:00: TABLET(S) [place] Tab 00 BY MOUTH Medical ONCE A Branch DAY. FERROCITE 2-0 Yes [id number] TAKE ONE Univers 324 mg (106 3-25 (1) ity of mg iron) 00:00: TABLET(S) [place] Tab 00 BY MOUTH Medical ONCE A Branch DAY. TIZANIDINE 2021-0 Yes [id number] TAKE ONE Univers 4 mg tablet 2-28 (1) ity of 00:00: TABLET(S) [place] 00 BY MOUTH Medical EVERY Branch EIGHT HOURS NEEDED FOR MUSCLE SPASMS. DULOXETINE 2021-0 Yes [id number] TAKE ONE Univers 60 mg 2-28 (1) ity of capsule 00:00: [place]LE(S) [place] 00 BY MOUTH Medical ONCE A Branch DAY. DULOXETINE 2-0 Yes [id number] TAKE ONE Univers 60 mg 2-28 (1) ity of capsule 00:00: [place]LE(S) [place] 00 BY MOUTH Medical ONCE A Branch DAY. DULOXETINE 2021-0 Yes [id number] TAKE ONE Univers 60 mg 2-28 (1) ity of capsule 00:00: [place]LE(S) [place] 00 BY MOUTH Medical ONCE A Branch DAY. DULOXETINE 2021-0 Yes [id number] TAKE ONE Univers 60 mg 2-28 (1) ity of capsule 00:00: [place](S) [place] 00 BY MOUTH Medical ONCE A Branch DAY. DULOXETINE 2021-0 Yes [id number] TAKE ONE Univers 60 mg 2-28 (1) ity of capsule 00:00: [place]LE(S) [place] 00 BY MOUTH Medical ONCE A Branch DAY. DULOXETINE 2021-0 Yes [id number] TAKE ONE Univers 60 mg 2-28 (1) ity of capsule 00:00: [place]LE(S) [place] 00 BY MOUTH Medical ONCE A Branch DAY. DULOXETINE 2021-0 Yes [id number] TAKE ONE Univers 60 mg 2-28 (1) ity of capsule 00:00: [place]LE(S) [place] 00 BY MOUTH Medical ONCE A Branch DAY. DULOXETINE 0 Yes [id number] TAKE ONE Univers 60 mg 2-28 (1) ity of capsule 00:00: [place]LE(S) [place] 00 BY MOUTH Medical ONCE A Branch DAY. TIZANIDINE 2021- No [id number] TAKE ONE Univers 4 mg tablet -28 04-28 (1) ity of 00:00: 00:00 TABLET(S) [place] 00 :00 BY MOUTH Medical EVERY Branch EIGHT HOURS NEEDED FOR MUSCLE SPASMS. levonorgest Yes [id number] 1{tbl} Take 1 Univers rel-ethinyl 2-25 tablet by ity of estradiol 00:00: mouth [place] (VIENVA) 00 daily. Medical 0.1-20 Branch mg-mcg per tablet levonorgest 2021-0 Yes [id number] 1{tbl} Take 1 Univers rel-ethinyl 2-25 tablet by ity of estradiol 00:00: mouth [place] (VIENVA) 00 daily. Medical 0.1-20 Branch mg-mcg per tablet levonorgest 2021-0 Yes [id number] 1{tbl} Take 1 Univers rel-ethinyl 2-25 tablet by ity of estradiol 00:00: mouth [place] (VIENVA) 00 daily. Medical 0.1-20 Branch mg-mcg per tablet levonorgest Yes [id number] 1{tbl} Take 1 Univers rel-ethinyl 2-25 tablet by ity of estradiol 00:00: mouth [place] (VIENVA) 00 daily. Medical 0.1-20 Branch mg-mcg per tablet levonorgest Yes [id number] 1{tbl} Take 1 Univers rel-ethinyl 2-25 tablet by ity of estradiol 00:00: mouth [place] (VIENVA) 00 daily. Medical 0.1-20 Branch mg-mcg per tablet levonorgest Yes [id number] 1{tbl} Take 1 Univers rel-ethinyl 2-25 tablet by ity of estradiol 00:00: mouth [place] (VIENVA) 00 daily. Medical 0.1-20 Branch mg-mcg per tablet levonorgest Yes [id number] 1{tbl} Take 1 Univers rel-ethinyl 2-25 tablet by ity of estradiol 00:00: mouth [place] (VIENVA) 00 daily. Medical 0.1-20 Branch mg-mcg per tablet levonorgest Yes [id number] 1{tbl} Take 1 Univers rel-ethinyl 2-25 tablet [...] NEEDED FOR MUSCLE SPASMS OR PAIN. diclofenac 2022-0 Yes TAKE ONE Uni vers 75 mg EC 2-19 (1) ity of tablet 00:00: TABLET(S) [place] 00 BY MOUTH Medical EVERY Branch TWELVE HOURS FOR 10 DAYS NEEDED FOR PAIN. TAKE WITH FOOD. acetaminoph 2021-0 Yes TAKE TWO Un arias en-codeine 2-19 (2) ity of 300-30 mg 00:00: TABLET(S) [place] tablet 00 BY MOUTH Medical EVERY SIX Branch HOURS NEEDED FOR PAIN. carBAMazepi 2-0 Yes [id number] 200mg Take 1 Univers ne 200 mg 2-15 tablet by ity o f tablet 00:00: mouth [place] 00 every 12 Medical (twelve) Branch hours. carBAMazepi 2-0 Yes [id number] 200mg Take 1 Univers ne 200 mg 2-15 tablet by ity o f tablet 00:00: mouth [place] 00 every 12 Medical (twelve) Branch hours. carBAMazepi 2-0 Yes [id number] 200mg Take 1 Univers ne 200 mg 2-15 tablet by ity o f tablet 00:00: mouth [place] 00 every 12 Medical (twelve) Branch hours. carBAMazepi 2-0 Yes [id number] 200mg Take 1 Univers ne 200 mg 2-15 tablet by ity o f tablet 00:00: mouth [place] 00 every 12 Medical (twelve) Branch hours. carBAMazepi 2-0 Yes [id number] 200mg Take 1 Univers ne 200 mg 2-15 tablet by ity o f tablet 00:00: mouth [place] 00 every 12 Medical (twelve) Branch hours. carBAMazepi 2-0 Yes [id number] 200mg Take 1 Univers ne 200 mg 2-15 tablet by ity o f tablet 00:00: mouth [place] 00 every 12 Medical (twelve) Branch hours. carBAMazepi 2-0 Yes [id number] 200mg Take 1 Univers ne 200 mg 2-15 tablet by ity o f tablet 00:00: mouth [place] 00 every 12 Medical (twelve) Branch hours. carBAMazepi 2-0 Yes [id number] 200mg Take 1 Univers ne 200 mg 2-15 tablet by ity o f tablet 00:00: mouth [place] 00 every 12 Medical (twelve) Branch hours. ibuprofen 2021-0 Yes TAKE ONE Univ ers 800 mg [...] Branch HOURS NEEDED FOR DENTAL PAIN. ibuprofen 2021-0 Yes TAKE ONE Univ ers 800 mg 2-11 (1) ity of tablet 00:00: TABLET(S) [place] 00 BY MOUTH Medical EVERY Branch EIGHT HOURS NEEDED FOR DENTAL PAIN. traMADoL 50 0 Yes TAKE ONE Un arias mg tablet 2-11 (1) ity of 00:00: TABLET(S) [place] 00 BY MOUTH Medical EVERY SIX Branch HOURS NEEDED FOR DENTAL PAIN. ibuprofen 2-0 Yes TAKE ONE Univ ers 800 mg 2-11 (1) ity of tablet 00:00: TABLET(S) [place] 00 BY MOUTH Medical EVERY Branch EIGHT HOURS NEEDED FOR DENTAL PAIN. traMADoL 50 2021-0 Yes TAKE ONE Un arias mg tablet 2-11 (1) ity of 00:00: TABLET(S) [place] 00 BY MOUTH Medical EVERY SIX Branch HOURS NEEDED FOR DENTAL PAIN. ibuprofen 2021-0 Yes TAKE ONE Univ ers 800 mg 2-11 (1) ity of tablet 00:00: TABLET(S) [place] 00 BY MOUTH Medical EVERY Branch EIGHT HOURS NEEDED FOR DENTAL PAIN. traMADoL 50 2021-0 Yes TAKE ONE Un arias mg tablet 2-11 (1) ity of 00:00: TABLET(S) [place] 00 BY MOUTH Medical EVERY SIX Branch HOURS NEEDED FOR DENTAL PAIN. clotrimazol 2022-0 Yes INSTILL Uni vers e 1 % 2-04 FIVE (5) ity of solution 00:00: DROPS INTO [place] 00 LEFT EAR 3 Medical TIMES Branch DAILY. clotrimazol 2022-0 Yes INSTILL Uni vers e 1 % 2-04 FIVE (5) ity of solution 00:00: DROPS INTO [place] 00 LEFT EAR 3 Medical TIMES Branch DAILY. clotrimazol 2022-0 Yes INSTILL Uni vers e 1 % 2-04 FIVE (5) ity of solution 00:00: DROPS INTO [place] 00 LEFT EAR 3 Medical TIMES Branch DAILY. clotrimazol 2022-0 Yes INSTILL Uni vers e 1 % 2-04 FIVE (5) ity of solution 00:00: DROPS INTO [place] 00 LEFT EAR 3 Medical TIMES Branch DAILY. clotrimazol 2022-0 Yes INSTILL Uni vers e 1 % 2-04 FIVE (5) ity of solution 00:00: DROPS INTO [place] 00 LEFT EAR 3 Medical TIMES Branch DAILY. clotrimazol 2022-0 Yes INSTILL Uni vers e 1 % 2-04 FIVE (5) ity of solution 00:00: DROPS INTO [place] 00 LEFT EAR 3 Medical TIMES Branch DAILY. clotrimazol 2022-0 Yes INSTILL Uni vers e 1 % 2-04 FIVE (5) ity of solution 00:00: DROPS INTO [place] 00 LEFT EAR 3 Medical TIMES Branch DAILY. clotrimazol 2021-0 Yes INSTILL Uni vers e 1 % 2-04 FIVE (5) ity of solution 00:00: DROPS INTO [place] 00 LEFT EAR 3 Medical TIMES Branch DAILY. ciprofloxac 2021-0 Yes INSTILL Uni vers in-dexameth 2-03 FOUR (4) ity of asone 00:00: DROPS INTO [place] 0.3-0.1 % 00 AFFECTED Medica l otic drops EAR EVERY Bran ch 12 HOURS FOR 7 DAYS. ciprofloxac 2021-0 Yes INSTILL Uni vers in-dexameth 2-03 FOUR (4) ity of asone 00:00: DROPS INTO [place] 0.3-0.1 % 00 AFFECTED Medica l otic drops EAR EVERY Bran ch 12 HOURS FOR 7 DAYS. ciprofloxac 2021-0 Yes INSTILL Uni vers in-dexameth 2-03 FOUR (4) ity of asone 00:00: DROPS INTO [place] 0.3-0.1 % 00 AFFECTED Medica l otic drops EAR EVERY Bran ch 12 HOURS FOR 7 DAYS. ciprofloxac 2021-0 Yes INSTILL Uni vers in-dexameth 2-03 FOUR (4) ity of asone 00:00: DROPS INTO [place] 0.3-0.1 % 00 AFFECTED Medica l otic drops EAR EVERY Bran ch 12 HOURS FOR 7 DAYS. ciprofloxac 2021-0 Yes INSTILL Uni vers in-dexameth 2-03 FOUR (4) ity of asone 00:00: DROPS INTO [place] 0.3-0.1 % 00 AFFECTED Medica l otic drops EAR EVERY Bran ch 12 HOURS FOR 7 DAYS. ciprofloxac 2021-0 Yes INSTILL Uni vers in-dexameth 2-03 FOUR (4) ity of asone 00:00: DROPS INTO [place] 0.3-0.1 % 00 AFFECTED Medica l otic drops EAR EVERY Bran ch 12 HOURS FOR 7 DAYS. ciprofloxac 2021-0 Yes INSTILL Uni vers in-dexameth 2-03 FOUR (4) ity of asone 00:00: DROPS INTO [place] 0.3-0.1 % 00 AFFECTED Medica l otic drops EAR EVERY Bran ch 12 HOURS FOR 7 DAYS. ciprofloxac 2022-0 Yes INSTILL Uni vers in-dexameth 2-03 FOUR (4) ity of asone 00:00: DROPS INTO [place] 0.3-0.1 % 00 AFFECTED Medica l otic drops EAR EVERY Bran ch 12 HOURS FOR 7 DAYS. doxycycline 2021-0 Yes [id number] 100mg Take 1 Univers monohydrate 1-13 capsule by it y of 100 mg 00:00: mouth 2 [place] capsule 00 (two) Medical times Branch daily. doxycycline 2021-0 Yes [id number] 100mg Take 1 Univers monohydrate 1-13 capsule by it y of 100 mg 00:00: mouth 2 [place] capsule 00 (two) Medical times Branch daily. doxycycline 2021-0 Yes [id number] 100mg Take 1 Univers monohydrate 1-13 capsule by it y of 100 mg 00:00: mouth 2 [place] capsule 00 (two) Medical times Branch daily. doxycycline 2021-0 Yes [id number] 100mg Take 1 Univers monohydrate 1-13 capsule by it y of 100 mg 00:00: mouth 2 [place] capsule 00 (two) Medical times Branch daily. doxycycline 2021-0 Yes [id number] 100mg Take 1 Univers monohydrate 1-13 capsule by it y of 100 mg 00:00: mouth 2 [place] capsule 00 (two) Medical times Branch daily. doxycycline 2021-0 Yes [id number] 100mg Take 1 Univers monohydrate 1-13 capsule by it y of 100 mg 00:00: mouth 2 [place] capsule 00 (two) Medical times Branch daily. doxycycline 2021-0 Yes [id number] 100mg Take 1 Univers monohydrate 1-13 capsule by it y of 100 mg 00:00: mouth 2 [place] capsule 00 (two) Medical times Branch daily. doxycycline 2021-0 Yes [id number] 100mg Take 1 Univers monohydrate 1-13 capsule [...] DAY. TAKE 30 MINUTES BEFORE BREAKFAST. omeprazole 2-0 Yes TAKE ONE Uni vers 20 mg [...] Yes TAKE ONE Uni vers 20 mg - (1) ity of capsule 00:00: [place](S) [place] 00 BY MOUTH Medical ONCE A Branch DAY. TAKE 30 MINUTES BEFORE BREAKFAST. omeprazole 2021-0 Yes TAKE ONE Uni vers 20 mg -09 (1) ity of capsule 00:00: [place](S) [place] 00 BY MOUTH Medical ONCE A Branch DAY. TAKE 30 MINUTES BEFORE BREAKFAST. neomycin-po 2021-0 Yes [id number] 4[drp] Place 4 Univers lymyxin-hyd 1-06 Drops in ity of rocortisone 00:00: left ear 2 [place] 3.5-10,000- 00 (two) Medical 1 times Branch mg/mL-unit/ daily. mL-% otic susp naproxen 2021-0 Yes TAKE ONE Unive rs 500 mg 06 (1) ity of tablet 00:00: TABLET(S) [place] 00 BY MOUTH Medical TWICE A Branch DAY WITH MEALS NEEDED FOR PAIN. neomycin-po 2021-0 Yes [id number] 4[drp] Place 4 Univers lymyxin-hyd 1-06 Drops in ity of rocortisone 00:00: left ear 2 [place] 3.5-10,000- 00 (two) Medical 1 times Branch mg/mL-unit/ daily. mL-% otic susp naproxen 2021-0 Yes TAKE ONE Unive rs 500 mg 1-06 (1) ity of tablet 00:00: TABLET(S) BY MOUTH Medical TWICE A Branch DAY WITH MEALS NEEDED FOR PAIN. neomycin-po 2021-0 Yes [id number] 4[drp] Place 4 Univers lymyxin-hyd 1-06 Drops in ity of rocortisone 00:00: left ear 2 [place] 3.5-10,000- 00 (two) Medical 1 times Branch mg/mL-unit/ daily. mL-% otic susp naproxen 2021-0 Yes TAKE ONE Unive rs 500 mg 1-06 (1) ity of tablet 00:00: TABLET(S) BY MOUTH Medical TWICE A Branch DAY WITH MEALS NEEDED FOR PAIN. neomycin-po 2021-0 Yes [id number] 4[drp] Place 4 Univers lymyxin-hyd 1-06 Drops in ity of rocortisone 00:00: left ear 2 [place] 3.5-,000 (two) Medical 1 times Branch mg/mL-unit/ daily. mL-% otic susp naproxen 2021-0 Yes TAKE ONE Unive rs 500 mg 1-06 (1) ity of tablet 00:00: TABLET(S) BY MOUTH Medical TWICE A Branch DAY WITH MEALS NEEDED FOR PAIN. neomycin-po 2021-0 Yes [id number] 4[drp] Place 4 Univers lymyxin-hyd 1-06 Drops in ity of rocortisone 00:00: left ear 2 [place] 3.5-,000- 00 (two) Medical 1 times Branch mg/mL-unit/ daily. mL-% otic susp naproxen 2021-0 Yes TAKE ONE Unive rs 500 mg 1-06 (1) ity of tablet 00:00: TABLET(S) BY MOUTH Medical TWICE A Branch DAY WITH MEALS NEEDED FOR PAIN. neomycin-po 2021-0 Yes [id number] 4[drp] Place 4 Univers lymyxin-hyd 1-06 Drops in ity of rocortisone 00:00: left ear 2 [place] 3.5-10,000- 00 (two) Medical 1 times Branch mg/mL-unit/ daily. mL-% otic susp naproxen 2021-0 Yes TAKE ONE Unive rs 500 mg 1-06 (1) ity of tablet 00:00: TABLET(S) [place] 00 BY MOUTH Medical TWICE A Branch DAY WITH MEALS NEEDED FOR PAIN. neomycin-po Yes [id number] 4[drp] Place 4 Univers lymyxin-hyd 1-06 Drops in ity of rocortisone 00:00: left ear 2 [place] 3.5-10,000- 00 (two) Medical 1 times Branch mg/mL-unit/ daily. mL-% otic susp naproxen Yes TAKE ONE Unive rs 500 mg 1-06 (1) ity of tablet 00:00: TABLET(S) [place] 00 BY MOUTH Medical TWICE A Branch DAY WITH MEALS NEEDED FOR PAIN. neomycin-po Yes [id number] 4[drp] Place 4 Univers lymyxin-hyd 1-06 Drops in ity of rocortisone 00:00: left ear 2 [place] 3.5-10,000- 00 (two) Medical 1 times Branch mg/mL-unit/ daily. mL-% otic susp naproxen Yes TAKE ONE Unive rs 500 mg -06 (1) ity of tablet 00:00: TABLET(S) [place] 00 BY MOUTH Medical TWICE A Branch DAY WITH MEALS NEEDED FOR PAIN. Omeprazole 2020-04 Yes [id number] 20mg Take 1 Univers Magnesium 2-09 capsule by ity of 20 mg 00:00: mouth [place] capsule 00 daily. Medical Take 30 Branch mins before breakfast. famotidine 2020-04 Yes TAKE ONE Uni vers 20 mg 2-09 (1) ity of tablet 00:00: TABLET(S) BY MOUTH Medical TWICE A Branch DAY. DON'T TAKE WITH TIZANIDINE . Omeprazole 2020-04 Yes [id number] 20mg Take 1 Univers Magnesium 2-09 capsule by ity of 20 mg 00:00: mouth [place] capsule 00 daily. Medical Take 30 Branch mins before breakfast. famotidine 2020-04 Yes TAKE ONE Uni vers 20 mg 2-09 (1) ity of tablet 00:00: TABLET(S) [place] 00 BY MOUTH Medical TWICE A Branch DAY. DON'T TAKE WITH TIZANIDINE . Omeprazole 2020-04 Yes [id number] 20mg Take 1 Univers Magnesium 2-09 capsule by ity of 20 mg 00:00: mouth [place] capsule 00 daily. Medical Take 30 Branch mins before breakfast. famotidine 2020-04 Yes TAKE ONE Uni vers 20 mg 2-09 (1) ity of tablet 00:00: TABLET(S) [place] 00 BY MOUTH Medical TWICE A Branch DAY. DON'T TAKE WITH TIZANIDINE . Omeprazole 2020-04 Yes [id number] 20mg Take 1 [facility] Magnesium 2-09 capsule by ity of 20 mg 00:00: mouth [place] capsule 00 daily. Medical Take 30 Branch mins before breakfast. famotidine 2020-04 Yes TAKE ONE [facility] vers 20 mg 2-09 (1) ity of tablet 00:00: TABLET(S) [place] 00 BY MOUTH Medical TWICE A Branch DAY. DON'T TAKE WITH TIZANIDINE . Omeprazole 2020-04 Yes [id number] 20mg Take 1 [facility] Magnesium 2-09 capsule by ity of 20 mg 00:00: mouth [place] capsule 00 daily. Medical Take 30 Branch mins before breakfast. famotidine 2020-04 Yes TAKE ONE [facility] vers 20 mg 2-09 (1) ity of tablet 00:00: TABLET(S) [place] 00 BY MOUTH Medical TWICE A Branch DAY. DON'T TAKE WITH TIZANIDINE . Omeprazole 2020-04 Yes [id number] 20mg Take 1 [facility] Magnesium 2-09 capsule by ity of 20 mg 00:00: mouth [place] capsule 00 daily. Medical Take 30 Branch mins before breakfast. famotidine 2020-04 Yes TAKE ONE [facility] vers 20 mg 2-09 (1) ity of tablet 00:00: TABLET(S) [place] 00 BY MOUTH Medical TWICE A Branch DAY. DON'T TAKE WITH TIZANIDINE . Omeprazole 2020-04 Yes [id number] 20mg Take 1 [facility] Magnesium 2-09 capsule by ity of 20 mg 00:00: mouth [place] capsule 00 daily. Medical Take 30 Branch mins before breakfast. famotidine 2020-04 Yes TAKE ONE [facility] vers 20 mg 2-09 (1) ity of tablet 00:00: TABLET(S) [place] 00 BY MOUTH Medical TWICE A Branch DAY. DON'T TAKE WITH TIZANIDINE . Omeprazole 2020-04 Yes [id number] 20mg Take 1 [facility] Magnesium 2-09 capsule by ity of 20 mg 00:00: mouth [place] capsule 00 daily. Medical Take 30 Branch mins before breakfast. famotidine 2020-04 Yes TAKE ONE [facility] vers 20 mg 05-26 (1) ity of tablet 00:00: TABLET(S) [place] 00 BY MOUTH Medical TWICE A DAY. DON'T TAKE WITH TIZANIDINE . cyanocobala 2020-04 Yes Take by [facility] vers min, 2-01 mouth. ity of vitamin 12:23: [place] [id number], Medical (VITAMIN Branch B12 ORAL) cyanocobala 2020-04 Yes Take by [facility] vers min, 2-01 mouth. ity of vitamin 12:23: [place] [id number], Medical (VITAMIN Branch B12 ORAL) cyanocobala 2020-04 Yes Take by [facility] vers min, 2-01 mouth. ity of vitamin 12:23: [place] [address], Medical (VITAMIN Branch B12 ORAL) cyanocobala 2020-04 Yes Take by [facility] vers min, 2-01 mouth. ity of vitamin 12:23: [place] [address], Medical (VITAMIN Branch B12 ORAL) cyanocobala 2020-04 Yes Take by [facility] vers min, 2-01 mouth. ity of vitamin 12:23: [place] [id number] Medical (VITAMIN Branch B12 ORAL) cyanocobala 2020-04 Yes Take by [facility] vers min, 2-01 mouth. ity of vitamin 12:23: [place] [address], Medical (VITAMIN Branch B12 ORAL) cyanocobala 2020-04 Yes Take by [facility] vers min, 2-01 mouth. ity of vitamin 12:23: [place] [address], Medical (VITAMIN Branch B12 ORAL) cyanocobala 2020-04 Yes Take by [facility] vers min, 2-01 mouth. ity of vitamin 12:23: [place] [address], Medical (VITAMIN Branch B12 ORAL) fluticasone 2020-04 Yes [id number] 1{spray Use 1 [facility] propionate 2-01 } [place] in ity o f 50 00:00: each [place] mcg/actuati 00 nostril Medic al on nasal daily. Branch spray fluticasone 2020-04 Yes [id number] 1{spray Use 1 [facility] propionate 2-01 } [place] in ity o f 50 00:00: each [place] mcg/actuati 00 nostril Medic al on nasal daily. Branch spray fluticasone 2020-04 Yes [id number] 1{spray Use 1 [facility] propionate 2-01 } [place] in ity o f 50 00:00: each [place] mcg/actuati 00 nostril Medic al on nasal daily. Branch spray fluticasone 2020-04 Yes [id number] 1{spray Use 1 [facility] propionate 2-01 } [place] in ity o f 50 00:00: each [place] mcg/actuati 00 nostril Medic al on nasal daily. Branch spray fluticasone 2020-04 Yes [id number] 1{spray Use 1 [facility] propionate 2-01 } [place] in ity o f 50 00:00: each [place] mcg/actuati 00 nostril Medic al on nasal daily. Branch spray fluticasone 2020-04 Yes [id number] 1{spray Use 1 [facility] propionate 2-01 } [place] in ity o f 50 00:00: each [place] mcg/actuati 00 nostril Medic al on nasal daily. Branch spray fluticasone 2020-04 Yes [id number] 1{spray Use 1 [facility] propionate 2-01 } [place] in ity o f 50 00:00: each [place] mcg/actuati 00 nostril Medic al on nasal daily. Branch spray fluticasone 2020-04 Yes [id number] 1{spray Use 1 [facility] propionate 2-01 } [place] in ity o f 50 00:00: each [place] mcg/actuati 00 nostril Medic al on nasal daily. Branch spray TRAZODONE 2020-04 Yes [id number] TAKE 1/2-1 [facility] 50 mg 1-17 TABLET(S) ity of tablet 00:00: BY MOUTH [place] 00 AT Medical BEDTIME. Branch TRAZODONE 2020-04 Yes [id number] TAKE 1/2-1 [facility] 50 mg 1-17 TABLET(S) ity of tablet 00:00: BY MOUTH [place] 00 AT Medical BEDTIME. Branch TRAZODONE 2020-04 Yes [id number] TAKE 1/2-1 [facility] 50 mg 1-17 TABLET(S) ity of tablet 00:00: BY MOUTH [place] 00 AT Medical BEDTIME. Branch TRAZODONE 2020-04 Yes [id number] TAKE 1/2-1 [facility] 50 mg 1-17 TABLET(S) ity of tablet 00:00: BY MOUTH [place] 00 AT Medical BEDTIME. Branch TRAZODONE 2020-04 Yes [id number] TAKE 1/2-1 [facility] 50 mg 1-17 TABLET(S) ity of tablet 00:00: BY MOUTH [place] 00 AT Medical BEDTIME. [place] TRAZODONE 2020-04 Yes [id number] TAKE 1/2-1 [facility] 50 mg 1-17 TABLET(S) ity of tablet 00:00: BY MOUTH [place] 00 AT Medical BEDTIME. [place] TRAZODONE 2020-04 Yes [id number] TAKE 1/2-1 [facility] 50 mg 1-17 TABLET(S) ity of tablet 00:00: BY MOUTH [place] 00 AT Medical BEDTIME. [place] TRAZODONE 2020-04 Yes [id number] TAKE 1/2-1 [facility] 50 mg 1-17 TABLET(S) ity of tablet 00:00: BY MOUTH [place] 00 AT Medical BEDTIME. [place] GABAPENTIN 2020-04 Yes [id number] TAKE ONE [facility] 300 mg 1-15 (1) ity of capsule 00:00: CAPSULE(S) [place] 00 BY MOUTH Medical THREE Branch TIMES A DAY. METFORMIN 2020-04 Yes [id number] TAKE ONE [facility] 500 mg 1-15 (1) ity of tablet 00:00: TABLET(S) [place] 00 BY MOUTH Medical TWICE A Branch DAY WITH MEALS. GABAPENTIN 2020-04 Yes [id number] TAKE ONE [facility] 300 mg 1-15 (1) ity of capsule 00:00: CAPSULE(S) [place] 00 BY MOUTH Medical THREE Branch TIMES A DAY. METFORMIN 2020-04 Yes [id number] TAKE ONE [facility] 500 mg 1-15 (1) ity of tablet 00:00: TABLET(S) [place] 00 BY MOUTH Medical TWICE A Branch DAY WITH MEALS. GABAPENTIN 2020-04 Yes [id number] TAKE ONE [facility] 300 mg 1-15 (1) ity of capsule 00:00: CAPSULE(S) [place] 00 BY MOUTH Medical THREE Branch TIMES A DAY. METFORMIN 2020-04 Yes [id number] TAKE ONE [facility] 500 mg 1-15 (1) ity of tablet 00:00: TABLET(S) [place] 00 BY MOUTH Medical TWICE A Branch DAY WITH MEALS. GABAPENTIN 2020-04 Yes [id number] TAKE ONE [facility] 300 mg 1-15 (1) ity of capsule 00:00: CAPSULE(S) [place] 00 BY MOUTH Medical THREE Branch TIMES A DAY. METFORMIN 2020-04 Yes [id number] TAKE ONE [facility] 500 mg 1-15 (1) ity of tablet 00:00: TABLET(S) [place] 00 BY MOUTH Medical TWICE A Branch DAY WITH MEALS. GABAPENTIN 2020-04 Yes [id number] TAKE ONE [facility] 300 mg 1-15 (1) ity of capsule 00:00: CAPSULE(S) [place] 00 BY MOUTH Medical THREE Branch TIMES A DAY. METFORMIN 2020-04 Yes [id number] TAKE ONE [facility] 500 mg 1-15 (1) ity of tablet 00:00: TABLET(S) [place] 00 BY MOUTH Medical TWICE A Branch DAY WITH MEALS. GABAPENTIN 2020-04 Yes [id number] TAKE ONE [facility] 300 mg 1-15 (1) ity of capsule 00:00: CAPSULE(S) [place] 00 BY MOUTH Medical THREE Branch TIMES A DAY. METFORMIN 2020-04 Yes [id number] TAKE ONE [facility] 500 mg 1-15 (1) ity of tablet 00:00: TABLET(S) [place] 00 BY MOUTH Medical TWICE A Branch DAY WITH MEALS. GABAPENTIN 2020-04 Yes [id number] TAKE ONE [facility] 300 mg 1-15 (1) ity of capsule 00:00: CAPSULE(S) [place] 00 BY MOUTH Medical THREE Branch TIMES A DAY. METFORMIN 2020-04 Yes [id number] TAKE ONE [facility] 500 mg 1-15 (1) ity of tablet 00:00: TABLET(S) [place] 00 BY MOUTH Medical TWICE A Branch DAY WITH MEALS. GABAPENTIN 2020-04 Yes [id number] TAKE ONE [facility] 300 mg 1-15 (1) ity of capsule 00:00: CAPSULE(S) [place] 00 BY MOUTH Medical THREE Branch TIMES A DAY. METFORMIN 2020-04 Yes [id number] TAKE ONE [facility] 500 mg 1-15 (1) ity of tablet 00:00: TABLET(S) [place] 00 BY MOUTH Medical TWICE A Branch DAY WITH MEALS. Blood-Gluco 2020-04 Yes [id number] Check U nivers se Meter 0-01 glucose ity of Kit 00:00: once daily [place] 00 before Medical breakfast; Branch ICD-10 code E11.9 Lancets 2020-04 Yes [id number] Check Unive rs Misc 0-01 glucose ity of 00:00: once daily [place] 00 before Medical breakfast; Branch ICD-10 code E11.9 blood sugar 2020-04 Yes [id number] Check U nivers diagnostic 0-01 glucose ity of (BLOOD 00:00: once daily [place] GLUCOSE 00 before Medical TEST) strip breakfast; Br anch ICD-10 code E11.9 liraglutide 2020-04 Yes [id number] 1.2mg inject 1.2 [facility] (VICTOZA 0-01 mg under ity of 2-NONA) 0.6 00:00: the [place] mg/0.1 mL 00 daily. Medical (18 mg/3 Branch mL) injection Insulin 2020-04 Yes [id number] Use as [facility] [place], 0-01 directed ity of Disposable, 00:00: [place] (PEN 00 Medical NEEDLE) 32 Branch gauge x 5/32" [place] Blood-Gluco 2020-04 Yes [id number] Check U nivers se Meter 0-01 glucose ity of Kit 00:00: once daily [place] 00 before Medical breakfast; Branch ICD-10 code E11.9 Lancets 2020-04 Yes [id number] Check Unive rs Misc 0-01 glucose ity of 00:00: once daily [place] 00 before Medical breakfast; Branch ICD-10 code E11.9 blood sugar 2020-04 Yes [id number] Check U nivers diagnostic 0-01 glucose ity of (BLOOD 00:00: once daily [place] GLUCOSE 00 before Medical TEST) strip breakfast; Br anch ICD-10 code E11.9 liraglutide 2020-04 Yes [id number] 1.2mg inject 1.2 [facility] (VICTOZA 0-01 mg under ity of 2-NONA) 0.6 00:00: the skin [place] mg/0.1 mL 00 daily. Medical (18 mg/3 Branch mL) injection Insulin 2020-04 Yes [id number] Use as [facility] [place], 0-01 directed ity of Disposable, 00:00: [place] (PEN 00 Medical NEEDLE) 32 Branch gauge x 5/32" Ndle Blood-Gluco 2020-04 Yes [id number] Check U nivers se Meter 0-01 glucose ity of Kit 00:00: once daily [place] 00 before Medical breakfast; Branch ICD-10 code E11.9 Lancets 2020-04 Yes [id number] Check Unive rs Misc 0-01 glucose ity of 00:00: once daily [place] 00 before Medical breakfast; Branch ICD-10 code E11.9 blood sugar 2020-04 Yes [id number] Check U nivers diagnostic 0-01 glucose ity of (BLOOD 00:00: once daily [place] GLUCOSE 00 before Medical TEST) strip breakfast; Br anch ICD-10 code E11.9 liraglutide 2020-04 Yes [id number] 1.2mg inject 1.2 [facility] (VICTOZA 0-01 mg under ity of 2-NONA) 0.6 00:00: the skin [place] mg/0.1 mL 00 daily. Medical (18 mg/3 Branch mL) injection Insulin 2020-04 Yes [id number] Use as [facility] [place], 0-01 directed ity of Disposable, 00:00: [place] (PEN 00 Medical NEEDLE) 32 Branch gauge x 5/32" Ndle Blood-Gluco 2020-04 Yes [id number] Check U nivers se Meter 0-01 glucose ity of Kit 00:00: once daily [place] 00 before Medical breakfast; Branch ICD-10 code E11.9 Lancets 2020-04 Yes [id number] Check Unive rs Misc 0-01 glucose ity of 00:00: once daily [place] 00 before Medical breakfast; Branch ICD-10 code E11.9 blood sugar 2020-04 Yes [id number] Check U nivers diagnostic 0-01 glucose ity of (BLOOD 00:00: once daily [place] GLUCOSE 00 before Medical TEST) strip breakfast; Br anch ICD-10 code E11.9 liraglutide 2020-04 Yes [id number] 1.2mg inject 1.2 [facility] (VICTOZA 0-01 mg under ity of 2-NONA) 0.6 00:00: the skin [place] mg/0.1 mL 00 daily. Medical (18 mg/3 Branch mL) injection Insulin 2020-04 Yes [id number] Use as [facility] [place], 0-01 directed ity of Disposable, 00:00: [place] (PEN 00 Medical NEEDLE) 32 Branch gauge x 5/32" Ndle Blood-Gluco 2020-04 Yes [id number] Check U nivers se Meter 0-01 glucose ity of Kit 00:00: once daily [place] 00 before Medical breakfast; Branch ICD-10 code E11.9 Lancets 2020-04 Yes [id number] Check Unive rs Misc 0-01 glucose ity of 00:00: once daily [place] 00 before Medical breakfast; Branch ICD-10 code E11.9 blood sugar 2020-04 Yes [id number] Check U nivers diagnostic 0-01 glucose ity of (BLOOD 00:00: once daily [place] GLUCOSE 00 before Medical TEST) strip breakfast; Br anch ICD-10 code E11.9 liraglutide 2020-04 Yes [id number] 1.2mg inject 1.2 [facility] (VICTOZA 0-01 mg under ity of 2-NONA) 0.6 00:00: the skin [place] mg/0.1 mL 00 daily. Medical (18 mg/3 Branch mL) injection Insulin 2020-04 Yes [id number] Use as [facility] [place], 0-01 directed ity of Disposable, 00:00: [place] (PEN 00 Medical NEEDLE) 32 Branch gauge x 5/32" Ndle Blood-Gluco 2020-04 Yes [id number] Check U nivers se Meter 0-01 glucose ity of Kit 00:00: once daily [place] 00 before Medical breakfast; Branch ICD-10 code E11.9 Lancets 2020-04 Yes [id number] Check Unive rs Misc 0-01 glucose ity of 00:00: once daily [place] 00 before Medical breakfast; Branch ICD-10 code E11.9 blood sugar 2020-04 Yes [id number] Check U nivers diagnostic 0-01 glucose ity of (BLOOD 00:00: once daily [place] GLUCOSE 00 before Medical TEST) strip breakfast; Br anch ICD-10 code E11.9 liraglutide 2020-04 Yes [id number] 1.2mg inject 1.2 [facility] (VICTOZA 0-01 mg under ity of 2-NONA) 0.6 00:00: the skin [place] mg/0.1 mL 00 daily. Medical (18 mg/3 Branch mL) injection Insulin 2020-04 Yes [id number] Use as [facility] [place], 0-01 directed ity of Disposable, 00:00: [place] (PEN 00 Medical NEEDLE) 32 Branch gauge x 5/32" Ndle Blood-Gluco 2020-04 Yes [id number] Check U nivers se Meter 0-01 glucose ity of Kit 00:00: once daily [place] 00 before Medical breakfast; Branch ICD-10 code E11.9 Lancets 2020-04 Yes [id number] Check Unive rs Misc 0-01 glucose ity of 00:00: once daily [place] 00 before Medical breakfast; Branch ICD-10 code E11.9 blood sugar 2020-04 Yes [id number] Check U nivers diagnostic 0-01 glucose ity of (BLOOD 00:00: once daily [place] GLUCOSE 00 before Medical TEST) strip breakfast; Br anch ICD-10 code E11.9 liraglutide 2020-04 Yes [id number] 1.2mg inject 1.2 [facility] (VICTOZA 0-01 mg under ity of 2-NONA) 0.6 00:00: the skin [place] mg/0.1 mL 00 daily. Medical (18 mg/3 Branch mL) injection Insulin 2020-04 Yes [id number] Use as [facility] [place], 0-01 directed ity of Disposable, 00:00: [place] (PEN 00 Medical NEEDLE) 32 Branch gauge x 5/32" Ndle Blood-Gluco 2020-04 Yes [id number] Check U nivers se Meter 0-01 glucose ity of Kit 00:00: once daily [place] 00 before Medical breakfast; Branch ICD-10 code E11.9 Lancets 2020-04 Yes [id number] Check Unive rs Misc 0-01 glucose ity of 00:00: once daily [place] 00 before Medical breakfast; Branch ICD-10 code E11.9 blood sugar 2020-04 Yes [id number] Check U nivers diagnostic 0-01 glucose ity of (BLOOD 00:00: once daily [place] GLUCOSE 00 before Medical TEST) strip breakfast; Br anch ICD-10 code E11.9 liraglutide 2020-04 Yes [id number] 1.2mg inject 1.2 [facility] (VICTOZA 0-01 mg under ity of 2-NONA) 0.6 00:00: the skin [place] mg/0.1 mL 00 daily. Medical (18 mg/3 Branch mL) injection Insulin 2020-04 Yes [id number] Use as [facility] [place], 0-01 directed ity of Disposable, 00:00: [place] (PEN 00 Medical NEEDLE) 32 Branch gauge x 5/32" Ndle chlorhexidi Yes [id number] Apply to [facility] ne 4 % 5-27 area(s) ity of external 00:00: once daily [place] liquid 00 as needed Medical for Wound Branch care. chlorhexidi Yes [id number] Apply to [facility] ne 4 % 5-27 area(s) ity of external 00:00: once daily [place] liquid 00 as needed Medical for Wound Branch care. chlorhexidi 2021-0 Yes [id number] Apply to [facility] ne 4 % 5-27 area(s) ity of external 00:00: once daily [place] liquid 00 as needed Medical for Wound Branch care. chlorhexidi 2020-0 Yes [id number] Apply to [facility] ne 4 % 5-27 area(s) ity of external 00:00: once daily [place] liquid 00 as needed Medical for Wound Branch care. chlorhexidi 2020-0 Yes [id number] Apply to [facility] ne 4 % 5-27 area(s) ity of external 00:00: once daily [place] liquid 00 as needed Medical for Wound Branch care. chlorhexidi 1-0 Yes [id number] Apply to [facility] ne 4 % 5-27 area(s) ity of external 00:00: once daily [place] liquid 00 as needed Medical for Wound Branch care. chlorhexidi 2020-0 Yes [id number] Apply to [facility] ne 4 % 5-27 area(s) ity of external 00:00: once daily [place] liquid 00 as needed Medical for Wound Branch care. chlorhexidi 2020-0 Yes [id number] Apply to Univers ne 4 % 5-27 area(s) ity of external 00:00: once daily [place] liquid 00 as needed Medical for Wound Branch care. busPIRone 2020-0 Yes [id number] 7.5mg Take 0.5-1 [facility] 15 mg 4-09 tablets by ity of tablet 00:00: mouth 2 00 (two) Medical times Branch daily as needed (anxiety). Cholecalcif 2020-0 Yes [id number] 2000U Take 1 [facility] [place], 4-09 capsule by ity of Vitamin D3, 00:00: mouth [place] (VITAMIN 00 daily. Medical D3) 50 mcg Take with Bran ch (2,000 food. unit) capsule busPIRone 2020-0 Yes [id number] 7.5mg Take 0.5-1 [facility] 15 mg 4-09 tablets by ity of tablet 00:00: mouth 2 [place] 00 (two) Medical times Branch daily as needed (anxiety). Cholecalcif 2020-0 Yes [id number] [id number] Take 1 [facility] [place], 4-09 capsule by ity of Vitamin D3, 00:00: mouth [place] (VITAMIN 00 daily. Medical D3) 50 mcg Take with Bran ch (2,000 food. unit) capsule busPIRone 2021-0 Yes [id number] 7.5mg Take 0.5-1 [facility] 15 mg 4-09 tablets by ity of tablet 00:00: mouth 2 (two) Medical times Branch daily as needed (anxiety). Cholecalcif 2021-0 Yes [id number] 1999U Take 1 [facility] [place], 4-09 capsule by ity of Vitamin D3, 00:00: mouth (VITAMIN 00 daily. Medical D3) 50 mcg Take with Bran ch (2,000 food. unit) capsule busPIRone 2021-0 Yes [id number] 7.5mg Take 0.5-1 [facility] 15 mg 4-09 tablets by ity of tablet 00:00: mouth 2 (two) Medical times Branch daily as needed (anxiety). Cholecalcif 1-0 Yes [id number] 1999U Take 1 [facility] [place], 4-09 capsule by ity of Vitamin D3, 00:00: mouth (VITAMIN 00 daily. Medical D3) 50 mcg Take with Bran ch (2,000 food. unit) capsule busPIRone 1-0 Yes [id number] 7.5mg Take 0.5-1 [facility] 15 mg 4-09 tablets by ity of tablet 00:00: mouth (two) Medical times Branch daily as needed (anxiety). Cholecalcif 1-0 Yes [id number] 1999U Take 1 [facility] [place], 4-09 capsule by ity of Vitamin D3, 00:00: mouth (VITAMIN 00 daily. Medical D3) 50 mcg Take with Bran ch (2,000 food. unit) capsule busPIRone 2021-0 Yes [id number] 7.5mg Take 0.5-1 [facility] 15 mg 4-09 tablets by ity of tablet 00:00: mouth 2 (two) Medical times Branch daily as needed (anxiety). Cholecalcif 2021-0 Yes [id number] 1999U Take 1 [facility] [place], 4-09 capsule by ity of Vitamin D3, 00:00: mouth (VITAMIN 00 daily. Medical D3) 50 mcg Take with Bran ch (2,000 food. unit) capsule busPIRone 2021-0 Yes [id number] 7.5mg Take 0.5-1 [facility] 15 mg 4-09 tablets by ity of tablet 00:00: mouth 2 00 (two) Medical times Branch daily as needed (anxiety). Cholecalcif Yes [id number] 1999U Take 1 [facility] [place], 4-09 capsule by ity of Vitamin D3, 00:00: mouth (VITAMIN 00 daily. Medical D3) 50 mcg Take with Bran ch (2,000 food. unit) capsule busPIRone Yes [id number] 7.5mg Take 0.5-1 [facility] 15 mg 4-09 tablets by ity of tablet 00:00: mouth 2 00 (two) Medical times Branch daily as needed (anxiety). Cholecalcif Yes [id number] Take 1 [facility] [place], 4-09 capsule by ity of Vitamin D3, 00:00: mouth (VITAMIN 00 daily. Medical D3) 50 mcg Take with Bran ch (2,000 food. unit) capsule clindamycin Yes [id number] 1g Apply 1 g [facility] -niacinamid 4-01 to area(s) it y of e 1-4 % Gel 00:00: 2 (two) [place] 00 times Medical daily. Branch clindamycin Yes [id number] 1g Apply 1 g [facility] -niacinamid 4-01 to area(s) it y of e 1-4 % Gel 00:00: 2 (two) [place] 00 times Medical daily. Branch clindamycin Yes [id number] 1g Apply 1 g [facility] -niacinamid 4-01 to area(s) it y of e 1-4 % Gel 00:00: 2 (two) [place] 00 times Medical daily. Branch clindamycin Yes [id number] 1g Apply 1 g [facility] -niacinamid 4-01 to area(s) it y of e 1-4 % Gel 00:00: 2 (two) [place] 00 times Medical daily. Branch clindamycin Yes [id number] 1g Apply 1 g [facility] -niacinamid 4-01 to area(s) it y of e 1-4 % Gel 00:00: 2 (two) [place] 00 times Medical daily. Branch clindamycin Yes [id number] 1g Apply 1 g [facility] -niacinamid 4-01 to area(s) it y of e 1-4 % Gel 00:00: 2 (two) [place] 00 times Medical daily. Branch clindamycin 2020-0 Yes [id number] 1g Apply 1 g [facility] -niacinamid 4-01 to area(s) it y of e 1-4 % Gel 00:00: 2 (two) [place] 00 times Medical daily. Branch clindamycin 2020-0 Yes [id number] 1g Apply 1 g [facility] -niacinamid 4-01 to area(s) it y of e 1-4 % Gel 00:00: 2 (two) [place] 00 times Medical daily. Branch Immunizations Ordered Filled Immunization Date Status Comments [facility] e Immunization Name Name SARS-COV-2 COVID-19 2021-01-15 Completed Unive rsity of PFIZER VACCINE 00:00:00 [facility] SARS-COV-2 COVID-19 2021-01-15 Completed Unive rsity of PFIZER VACCINE 00:00:00 [facility] SARS-COV-2 COVID-19 2021-01-15 Completed Unive rsity of PFIZER VACCINE 00:00:00 [facility] SARS-COV-2 COVID-19 2021-01-15 Completed Unive rsity of PFIZER VACCINE 00:00:00 [facility] SARS-COV-2 COVID-19 2021-01-15 Completed Unive rsity of PFIZER VACCINE 00:00:00 [facility] SARS-COV-2 COVID-19 2021-01-15 Completed Unive rsity of PFIZER VACCINE 00:00:00 [facility] SARS-COV-2 COVID-19 2021-01-15 Completed Unive rsity of PFIZER VACCINE 00:00:00 [facility] SARS-COV-2 COVID-19 2021-01-15 Completed Unive rsity of PFIZER VACCINE 00:00:00 [facility] SARS-COV-2 COVID-19 2020-12-25 Completed Unive rsity of PFIZER VACCINE 00:00:00 [facility] SARS-COV-2 COVID-19 2020-12-25 Completed Unive rsity of PFIZER VACCINE 00:00:00 [facility] SARS-COV-2 COVID-19 2020-12-25 Completed Unive rsity of PFIZER VACCINE 00:00:00 [facility] SARS-COV-2 COVID-19 2020-12-25 Completed Unive rsity of PFIZER VACCINE 00:00:00 [facility] SARS-COV-2 COVID-19 2020-12-25 Completed Unive rsity of PFIZER VACCINE 00:00:00 [facility] SARS-COV-2 COVID-19 2020-12-25 Completed Unive rsity of PFIZER VACCINE 00:00:00 [facility] SARS-COV-2 COVID-19 2020-12-25 Completed Unive rsity of PFIZER VACCINE 00:00:00 [facility] SARS-COV-2 COVID-19 2020-12-25 Completed Unive rsity of PFIZER VACCINE 00:00:00 [facility] Influenza Virus 2020-03-03 Completed Universit y of Vaccine 00:00:00 [facility] Influenza Virus 2020-03-03 Completed Universit y of Vaccine 00:00:00 [facility] Influenza Virus 2020-03-03 Completed Universit y of Vaccine 00:00:00 [facility] Influenza Virus 2020-03-03 Completed Universit y of Vaccine 00:00:00 [facility] Influenza Virus 2020-03-03 Completed Universit y of Vaccine 00:00:00 [facility] Influenza Virus 2020-03-03 Completed Universit y of Vaccine 00:00:00 [facility] Influenza Virus 2020-03-03 Completed Universit y of Vaccine 00:00:00 [facility] Influenza Virus 2020-03-03 Completed Universit y of Vaccine 00:00:00 [facility] HEPATITIS A 2002-07-23 Completed University of 00:00:00 [facility] Hep B, Adol or Pedi 2002-07-23 Completed Unive rsity of Dosage 00:00:00 [facility] HEPATITIS A 2002-07-23 Completed University of 00:00:00 [facility] Hep B, Adol or Pedi 2002-07-23 Completed Unive rsity of Dosage 00:00:00 [facility] HEPATITIS A 2002-07-23 Completed University of 00:00:00 [facility] Hep B, Adol or Pedi 2002-07-23 Completed Unive rsity of Dosage 00:00:00 [facility] HEPATITIS A 2002-07-23 Completed University of 00:00:00 [facility] Hep B, Adol or Pedi 2002-07-23 Completed Unive rsity of Dosage 00:00:00 [place] [facility] HEPATITIS A 2002-07-23 Completed University of 00:00:00 [place] [facility] Hep B, Adol or Pedi 2002-07-23 Completed Unive rsity of Dosage 00:00:00 [place] [facility] HEPATITIS A 2002-07-23 Completed University of 00:00:00 [place] [facility] Hep B, Adol or Pedi 2002-07-23 Completed Unive rsity of Dosage 00:00:00 [place] [facility] HEPATITIS A 2002-07-23 Completed University of 00:00:00 [place] [facility] Hep B, Adol or Pedi 2002-07-23 Completed Unive rsity of Dosage 00:00:00 [place] [facility] HEPATITIS A 2002-07-23 Completed University of 00:00:00 [place] [facility] Hep B, Adol or Pedi 2002-07-23 Completed Unive rsity of Dosage 00:00:00 [place] [facility] Hep B, Adol or Pedi 2002-02-18 Completed Unive rsity of Dosage 00:00:00 [place] [facility] Hep B, Adol or Pedi 2002-02-18 Completed Unive rsity of Dosage 00:00:00 [facility] Hep B, Adol or Pedi 2002-02-18 Completed [facility] Dosage 00:00:00 [facility] Hep B, Adol or Pedi 2002-02-18 Completed [facility] Dosage 00:00:00 [facility] Hep B, Adol or Pedi 2002-02-18 Completed [facility] Dosage 00:00:00 [facility] Hep B, Adol or Pedi 2002-02-18 Completed [facility] Dosage 00:00:00 [facility] Hep B, Adol or Pedi 2002-02-18 Completed [facility] Dosage 00:00:00 [facility] Hep B, Adol or Pedi 2002-02-18 Completed [facility] Dosage 00:00:00 [facility] MMR 1995-12-08 Completed [facility] 00:00:00 [facility] MMR 1995-12-08 Completed [facility] 00:00:00 [facility] MMR 1995-12-08 Completed [facility] 00:00:00 [facility] MMR 1995-12-08 Completed [facility] 00:00:00 [facility] MMR 1995-12-08 Completed [facility] 00:00:00 [facility] MMR 1995-12-08 Completed [facility] 00:00:00 [facility] MMR 1995-12-08 Completed [facility] 00:00:00 [facility] MMR 1995-12-08 Completed [facility] 00:00:00 [facility] Polio (IPV/OPV) 1993-11-09 Completed [facility] 00:00:00 [facility] Polio (IPV/OPV) 1993-11-09 Completed [facility] 00:00:00 [facility] Polio (IPV/OPV) 1993-11-09 Completed [facility] 00:00:00 [facility] Polio (IPV/OPV) 1993-11-09 Completed [facility] 00:00:00 [facility] Polio (IPV/OPV) 1993-11-09 Completed [facility] 00:00:00 [facility] Polio (IPV/OPV) 1993-11-09 Completed [facility] 00:00:00 [facility] Polio (IPV/OPV) 1993-11-09 Completed [facility] 00:00:00 [facility] Polio (IPV/OPV) 1993-11-09 Completed [facility] 00:00:00 [facility] Vital Signs Vital Name Observation Time Observation Value Comments Source blood pressure, 2019-03-25 08:25:22 84 mm[Hg] [facility] diastolic Health blood pressure, 2019-03-25 08:25:22 117 mm[Hg] [facility] systolic Health pulse rate 2019-03-25 08:25:22 89 /min [facility] temperature E&M 2019-03-25 08:25:22 98.6 [degF] [facility] oxygen saturation, 2019-03-25 08:25:22 98 /min [facility] oximetry Health height in 2019-03-25 08:25:22 157.48 cm [facility] 2019-03-25 08:25:22 336.38 [lb_av] [facility] weight in kilograms 2019-03-25 08:25:22 152.90 kg L [facility] E& Health temperature site 2019-03-25 08:25:22 oral [facility] Procedures Procedure Date / Time Performed Performing Clinician Sourc e Urinalysis - 2019-03-25 09:18:43 Cook, Lydia [facility] Encounters Start End Encounter Admission Attending Care Care Encounter Source Date/Time Date/Time Type Type Clinicians Facility Department ID 2021-09-10 Outpatient ayan [facility] [id number] [facility] 20:11:27 Critical access hospital 2021-09-14 2021-09-14 Patient Case, Desi [facility] [id number] Univers 00:00:00 00:00:00 Secure Msg A [place] [id number] it[place] [id number] Ak guillermo [facility] [address] [facility] 2021-09-10 2021-09-10 Refbo Vidales [facility] 1.2.840.114 [id number] Univers 00:00:00 00:00:00 Wondiful A HEALTH [id number] ity of [place] 4.2.7.2.686 Golden as ANTWON?BLEA [id number] Ak dicnadia EY [address] [place] [address] [facility] 2021-09-05 2021-09-05 Shelly Vidales [facility] [id number] Univers 00:00:00 00:00:00 Wondiful [facility] 350.1.13.10 ity of [place] 4.2.7.2.686 [place] as ANTWON?BLEA [id number] Ak dicsd KNEY [address] [place] [address] [facility] 2021-09-02 2021-09-02 Shelly Vidales [facility] [id number] Univers 00:00:00 00:00:00 Wondiful A HEALTH [id number] ity of [place] 4.2.7.2.686 [place] as ANTWON?BLEA [id number] Ak dical [address] OFFICE [facility] 2021-08-30 2021-08-30 Shelly Vidales [facility] 1.2.840.114 [id number] Univers 00:00:00 00:00:00 Wondiful A HEALTH 350.1.13.10 ity of [place] 4.2.7.2.686 [place] as ANTWON?BLEA [id number] [address] OFFICE [facility] 2021-08-29 2021-08-29 Refill Clare, [facility] 1.2.840.114 [id number] Univers 00:00:00 00:00:00 Wondiful A HEALTH 350.1.13.10 ity of [place] 4.2.7.2.686 [place] as ANTWON?BLEA [id number] [address] OFFICE [facility] 2021-08-11 2021-08-11 Refill Clare, [facility] 1.2.840.114 [id number] Univers 00:00:00 00:00:00 Wondiful A HEALTH 350.1.13.10 ity of [place] 4.2.7.2.686 Golden as ANTWON?BLEA [id number] [address] OFFICE [facility] 2021-08-09 2021-08-09 Refill Sobeida, [facility] 1.2.840.114 [id number] Univers 00:00:00 00:00:00 Wondiful A HEALTH 350.1.13.10 ity of [place] 4.2.7.2.686 [place] as ANTWON?BLEA [id number] [address] OFFICE [facility] 2019-03-25 2019-03-25 Office Cook Lydia [facility] [id number] [facility] 00:00:00 00:00:00 [facility] [address] [facility] Results Test Description Test Time Test Comments Results Result Comments Source Neisseria gonorrhoeae DNA probe 2019-03-25 14:51:00 Test Item Value Reference Range Interpretation Comme nts Neisseria gonorrhoeae DNA probe (test code = 75992-3) Negative Negative [facility] [id number] 14:51:00 Test Item Value Reference Range Interpretation Comments chlamydia DNA probe (test code = Negative Negative 36827-8) [facility] Papillomavirus test [id number] 12:08:00 Test Item Value Reference Range Interpretation Comments Human Papillomavirus test result HPVNotTested (test code = 58109-6) [facility], blood, as % of total [id number] 10:13:00 Test Item Value Reference Range Interpretation Comments hemoglobin A1C, blood, as % of total 6.1 % 4.8-5.6 H hemoglobin (test code = 4548-4) [facility] hormone, [id number] 10:13:00 Test Item Value Reference Range Interpretation Comments thyroid stimulating hormone, 3.370 u[IU]/mL 0.450-4.500 serum (test code = 3016-3) [facility] Healthhepatitis C antibody, [id number] 10:13:00 Test Item Value Reference Range Interpretation Comments hepatitis C antibody, 0.7 (unknown unit) 0.0-0.9 serum (test code = 5199-5) [facility] Healthrapid plasma reagin antibody, [id number] 10:13:00 Test Item Value Reference Range Interpretation Comments rapid plasma reagin antibody, Non Reactive Non Reactive serum (test code = 5291-0) [facility]prolactin, [id number] 10:13:00 Test Item Value Reference Range Interpretation Comments prolactin, serum (test code = 8.5 ng/mL 4.8-23.3 2842-3) [facility]htestosterone, [id number] 10:13:00 Test Item Value Reference Range Interpretation Comments testosterone, total (test code = 41 ng/dL 8-48 2986-8) [facility] Healthfollicle stimulating hormone, [id number] 10:13:00 Test Item Value Reference Range Interpretation Comments follicle stimulating hormone, 2.8 m[IU]/mL serum (test code = 2286-3) [facility] Healthluteinizing hormone, [id number] 10:13:00 Test Item Value Reference Range Interpretation Comments luteinizing hormone, serum (test 6.3 m[IU]/mL code = 22878-2) [facility] Healthalanine aminotransferase (SGPT), [id number] 10:13:00 Test Item Value Reference Range Interpretation Comments alanine aminotransferase (SGPT), serum 17 1/L 0-32 (test code = 1742-6) [facility] Healthaspartate aminotransferase (SGOT), [id number] 10:13:00 Test Item Value Reference Range Interpretation Comments aspartate aminotransferase (SGOT), 15 1/L 0-40 serum (test code = 1920-8) [facility] Healthalkaline phosphatase, [id number] 10:13:00 Test Item Value Reference Range Interpretation Comments alkaline phosphatase, serum (test code 79 1/L 39-117 = 1783-0) [facility] Healthbilirubin, serum, [id number] 10:13:00 Test Item Value Reference Range Interpretation Comments bilirubin, serum, total (test code <0.2 mg/dL 0.0-1.2 = 1975-2) [facility] Healthalbumin/globulin ratio, [id number] 10:13:00 Test Item Value Reference Range Interpretation Comments albumin/globulin ratio, 1.3 (unknown unit) 1.2-2.2 serum (test code = 1759-0) [facility] Healthglobulin, [id number] 10:13:00 Test Item Value Reference Range Interpretation Comments globulin, serum (test code 3.1 (unknown unit) 1.5-4.5 = 2336-6) [facility] Healthalbumin, [id number] 10:13:00 Test Item Value Reference Range Interpretation Comments albumin, serum (test code = 1751-7) 4.1 g/dL 3.5-5.5 [facility]protein, total, [id number] 10:13:00 Test Item Value Reference Range Interpretation Comments protein, total, serum (test code = 7.2 g/dL 6.0-8.5 2885-2) [facility] Healthcalcium, [id number] 10:13:00 Test Item Value Reference Range Interpretation Comments calcium, serum (test code = 1999-8) 9.2 mg/dL 8.7-10.2 [facility]carbon dioxide, venous [id number] 10:13:00 Test Item Value Reference Range Interpretation Comments carbon dioxide, venous blood (test 25 mmol/L - code = 2026-1) [facility]chloride, [id number] 10:13:00 Test Item Value Reference Range Interpretation Comments chloride, serum (test code = 99 mmol/L 96-106 5-0) [facility]potassium, [id number] 10:13:00 Test Item Value Reference Range Interpretation Comments potassium, serum (test code = 4.7 mmol/L 3.5-5.2 2823-3) [facility]sodium, [id number] 10:13:00 Test Item Value Reference Range Interpretation Comments sodium, serum (test code = 2951-2) 138 mmol/L 134-144 [facility] Healthurea nitrogen/creatinine ratio, [id number] 10:13:00 Test Item Value Reference Range Interpretation Comments urea nitrogen/creatinine 11 (unknown unit) 9-23 ratio, serum (test code = 3097-3) [facility] HealtheGFR if [id number] 10:13:00 Test Item Value Reference Range Interpretation Comments eGFR if 139 mL/min/{1.73 m2} >59 (test code = 37715-4) [facility] HealthEstimated Glomerular Filtration Rate (calc)2019-03-25 10:13:00 Test Item Value Reference Range Interpretation Comments Estimated Glomerular 121 mL/min/{1.73 m2} >59 Filtration Rate (calc) (test code = 36253-6) [facility] Healthcreatinine, [id number] 10:13:00 Test Item Value Reference Range Interpretation Comments creatinine, serum (test code = 0.64 mg/dL 0.57-1.00 2160-0) [facility] Healthurea nitrogen, [id number] 10:13:00 Test Item Value Reference Range Interpretation Comments urea nitrogen, blood (test code = 7 mg/dL 6-20 3094-0) [facility] Healthblood glucose, [id number] 10:13:00 Test Item Value Reference Range Interpretation Comments blood glucose, random (test code = 102 mg/dL 65-99 H 2339-0) [facility] Healthimmature granulocytes, percentage of total cells, blood 2019-03-25 10:13:00 Test Item Value Reference Range Interpretation Comments immature granulocytes, percentage of 0 % total cells, blood (test code = 00478-2) [facility] Healthbasophil count, [id number] 10:13:00 Test Item Value Reference Range Interpretation Comments basophil count, absolute (test 0.0 x10E3/uL 0.0-0.2 code = 04843-1) [facility] HealthEosinophil Absolute [id number] 10:13:00 Test Item Value Reference Range Interpretation Comments Eosinophil Absolute Count (test 0.2 X10E3/UL 0.0-0.4 code = 32231-3) [facility] Healthmonocyte count, blood, [id number] 10:13:00 Test Item Value Reference Range Interpretation Comments monocyte count, blood, automated 0.6 X10E3/UL 0.1-0.9 (test code = 742-7) [facility] Healthlymphocyte count, blood, [id number] 10:13:00 Test Item Value Reference Range Interpretation Comments lymphocyte count, blood, 2.7 X10E3/UL 0.7-3.1 automated (test code = 731-0) [facility] HealthAbsolute [id number] 10:13:00 Test Item Value Reference Range Interpretation Comments Absolute Neutrophils (test code 5.2 X10E3/UL 1.4-7.0 = 83115-0) [facility] Healthbasophils as percent of blood [id number] 10:13:00 Test Item Value Reference Range Interpretation Comments basophils as percent of blood 0 % leukocytes (test code = 707-0) [facility] Healtheosinophils as percent of blood [id number] 10:13:00 Test Item Value Reference Range Interpretation Comments eosinophils as percent of blood 2 % leukocytes (test code = 713-8) [facility] Healthmonocytes as percent of blood rpjlqhvupu4039-19-48 10:13:00 Test Item Value Reference Range Interpretation Comments monocytes as percent of blood 7 % leukocytes (test code = 5905-5) [facility] Healthlymphocytes as percent of blood [id number] 10:13:00 Test Item Value Reference Range Interpretation Comments lymphocytes as percent of blood 31 % leukocytes (test code = 736-9) [facility] Healthneutrophils as percent of blood [id number] 10:13:00 Test Item Value Reference Range Interpretation Comments neutrophils as percent of blood 60 % leukocytes (test code = 770-8) [facility] Healthplatelet [id number] 10:13:00 Test Item Value Reference Range Interpretation Comments platelet count (test code = 370 X10E3/UL 150-450 777-3) [facility] Healthred blood cell distribution [id number] 10:13:00 Test Item Value Reference Range Interpretation Comments red blood cell distribution width 14.3 % 12.3-15.4 (test code = 788-0) [facility] corpuscular hemoglobin concentration, [id number] 10:13:00 Test Item Value Reference Range Interpretation Comments mean corpuscular hemoglobin 32.9 G/DL 31.5-35.7 concentration, RBC (test code = 786-4) [facility] corpuscular hemoglobin, [id number] 10:13:00 Test Item Value Reference Range Interpretation Comments mean corpuscular hemoglobin, RBC 27.2 pg 26.6-33.0 (test code = 785-6) [facility] corpuscular volume, [id number] 10:13:00 Test Item Value Reference Range Interpretation Comments mean corpuscular volume, RBC (test code 83 fL 79-97 = 787-2) [facility] Healthhematocrit, [id number] 10:13:00 Test Item Value Reference Range Interpretation Comments hematocrit, blood (test code = 4544-3) 38.9 % 34.0-46.6 [facility]hemoglobin, [id number] 10:13:00 Test Item Value Reference Range Interpretation Comments hemoglobin, blood (test code = 12.8 g/dL 11.1-15.9 718-7) [facility]altherythrocyte (RBC) [id number] 10:13:00 Test Item Value Reference Range Interpretation Comments erythrocyte (RBC) count (test 4.71 X10E6/UL 3.77-5.28 code = 789-8) [facility] Healthleukocyte count, [id number] 10:13:00 Test Item Value Reference Range Interpretation Comments leukocyte count, blood (test 8.7 X10E3/UL 3.4-10.8 code = 6690-2) [facility] Healthhepatitis B surface [id number] 10:13:00 Test Item Value Reference Range Interpretation Comments hepatitis B surface antigen (test Negative Negative code = 79) [facility] HealthHIV-CMIA (Chemiluminescent Microparticle Immuno Assay) 2019-03-25 10:13:00 Test Item Value Reference Range Interpretation Comments HIV-CMIA (Chemiluminescent Non Reactive Non Reactive Microparticle Immuno Assay) (test code = 984415) [facility]
[2022-01-03 19:11] LABS: Hematocrit 38.3 % (36.0-45.0); Lymphocytes % 12.2 % (15.3-44.8); MCV 84.4 fL (80-100); MPV 6.8 fL (7.6-11.3); RBC Red Blood Cell Count 4.54 M/uL (3.86-4.86)
[2022-01-03 19:39] LABS: Bilirubin Total 0.3 mg/dL (0.2-1.0); Potassium 3.6 mmol/L (3.5-5.1); Protein, Total 7.2 g/dL (6.4-8.2)
[2022-01-03] MEDS ORDERED: ONDANSETRON 4 MG/2 ML VIAL ONE (20:15)
[2022-01-03] MEDS ORDERED: FAMOTIDINE 20 MG/2 ML VIAL IV ONE (20:15)
[2022-01-03] MEDS ORDERED: DICYCLOMINE HCL 10 MG CAP ONE (20:15)
[2022-01-03] MEDS ORDERED: NA CHLORIDE 0.9% 1,000 ML ONE (20:15)
--- NOTE | 2022-01-03 20:49 | ER ---
Nurse's Notes [facility] Name: Milka Landry Age: 31 yrs Sex: Female : 1990 Arrival Date: 01/03/2022 Time: 17:47 Bed 23 Private MD: Diagnosis: Diarrhea, unspecified;Nausea with vomiting, unspecified Presentation: 01/03 17:59 Chief complaint: Patient states: Nausea, chills, vomiting, fever 100.4, has taken pepto ph w/ no relief, also reports diarrhea and body aches. Coronavirus screen: Vaccine status: Patient reports receiving the 1st dose of the Covid vaccine. Ebola Screen: No symptoms or risks identified at this time. Initial Sepsis Screen: Does the patient meet any 2 criteria? No. Patient's initial sepsis screen is negative. Does the patient have a suspected source of infection? No. Patient's initial sepsis screen is negative. Risk Assessment: Do you want to hurt yourself or someone else? Patient reports no desire to harm self or others. Onset of symptoms was January 03, 2022. 17:59 Method Of Arrival: Ambulatory ph 17:59 Acuity: HEATHER 3 ph Historical: - Allergies: 18:02 No Known Allergies; ph - PMHx: 18:02 "Latent" TB; Anxiety; chronic back pain; depressive disorder; diabetes mellitus; ph Fibromyalgia; Gastroesophageal reflux disease; L3 pars defect; neuropathy- feet/arms/hands; Obesity; PCOS; polyarthritis; sciatica; Sleep Apnea; trigeminal neuragia; - Immunization history:: Adult Immunizations unknown. - Social history:: Smoking status: Patient denies any tobacco usage or history of. Screenin:05 Abuse screen: Denies threats or abuse. Denies injuries from another. Nutritional hb screening: No deficits noted. Tuberculosis screening: No symptoms or risk factors identified. Fall Risk None identified. Assessment: 20:05 General: Appears in no apparent distress. uncomfortable, Behavior is calm, cooperative. hb Pain: Pain currently is 4 out of 10 on a pain scale. Neuro: Level of Consciousness is awake, alert, obeys commands, Oriented to person, place, time, situation. Cardiovascular: Patient's skin is warm and dry. Respiratory: Respiratory effort is even, unlabored, Respiratory pattern is regular, symmetrical. GI: Reports lower abdominal pain, cramping, diarrhea, nausea, vomiting. : No signs and/or symptoms were reported regarding the genitourinary system. EENT: No signs and/or symptoms were reported regarding the EENT system. Derm: Skin is pink, warm \\T\\ dry. Musculoskeletal: No signs and/or symptoms reported regarding the musculoskeletal system. Vital Signs: 17:59 BP 135 / 86; Pulse 109; Resp 20; Temp 99.5; Pulse Ox 100% on R/A; Weight 154.22 kg; ph Height 5 ft. 1 in. (154.94 cm); 20:15 BP 102 / 72; Pulse 83; Resp 18; Pulse Ox 97% on R/A; Pain 7/10; eh3 17:59 Body Mass Index 64.24 (154.22 kg, 154.94 cm) ph ED Course: 17:47 Patient arrived in ED. dt4 17:49 [facility]C [facility] kb 17:49 Laura Prado MD is Attending Physician. kb 18:02 Triage completed. ph 18:03 Arm band placed on Patient placed in waiting room, Patient notified of wait time. ph 19:02 Initial lab(s) drawn, by me, sent to lab. Inserted saline lock: 20 gauge in right dh3 antecubital area, using aseptic technique. Blood collected. 20:04 Jana De La Rosa, RN is Primary Nurse. hb 20:05 Patient has correct armband on for positive identification. hb 21:23 No provider procedures requiring assistance completed. IV discontinued, intact, hb bleeding controlled, No redness/swelling at site. Administered Medications: 20:13 Drug: NS 0.9% 1000 ml Route: IV; Rate: 1 bolus; Site: right antecubital; hb 20:13 Drug: Pepcid (famotidine) 20 mg Route: IVP; Site: right antecubital; hb 20:13 Drug: Zofran (Ondansetron) 4 mg Route: IVP; Site: right antecubital; hb 20:13 Drug: Bentyl (dicyclomine) 20 mg Route: PO; hb Medication: 20:05 VIS not applicable for this client. hb Outcome: 20:49 Discharge ordered by . kb 21:23 Discharged to home ambulatory. hb 21:23 Condition: stable 21:23 Discharge instructions given to patient, Instructed on discharge instructions, follow up and referral plans. medication usage, Demonstrated understanding of instructions, follow-up care, medications, Prescriptions given X 2. 21:24 Patient left the ED. hb Signatures: Heather Ramirez, REJI-Cal MENDOZA-Yany Hui, RN RN Jana De La Rosa RN RN Ellen Mckay 3 Luz Saenz RN RN 3 Angelica Mathew 4
--- NOTE | 2022-01-03 20:49 | EDPHYS ---
Physician Documentation [facility] Name: Milka Landry Age: 31 yrs Sex: Female : 1990 Arrival Date: 01/03/2022 Time: 17:47 Bed 23 Private MD: ED Physician Laura Prado HPI: 01/04 01:53 This 31 yrs old Female presents to ER via Ambulatory with complaints of kb Diarrhea, Fever, Vomiting. 01:53 The patient presents to the emergency department with nausea, vomiting, diarrhea. kb Onset: The symptoms/episode began/occurred today. Possible causes: unknown. The symptoms are aggravated by nothing. The symptoms are alleviated by nothing. Associated signs and symptoms: Pertinent positives: diarrhea, fever, nausea, vomiting. Severity of symptoms: At their worst the symptoms were moderate. The patient has not experienced similar symptoms in the past. The patient has not recently seen a physician. Pt reports n/v/d, fever, chills and bodyaches that started today. Historical: - Allergies: 01/03 18:02 No Known Allergies; ph - PMHx: 18:02 "Latent" TB; Anxiety; chronic back pain; depressive disorder; diabetes mellitus; ph Fibromyalgia; Gastroesophageal reflux disease; L3 pars defect; neuropathy- feet/arms/hands; Obesity; PCOS; polyarthritis; sciatica; Sleep Apnea; trigeminal neuragia; - Immunization history:: Adult Immunizations unknown. - Social history:: Smoking status: Patient denies any tobacco usage or history of. ROS: 01/04 01:53 Respiratory: Negative for shortness of breath, cough, wheezing, and pleuritic chest kb pain. Constitutional: Positive for body aches, chills, fever, malaise. Abdomen/GI: Positive for nausea, vomiting, and diarrhea, abdominal cramps. All other systems are negative. Exam: 01:52 Constitutional: This is a well developed, well nourished patient who is awake, alert, kb and in no acute distress. Head/Face: Normocephalic, atraumatic. ENT: Moist Mucous membranes Cardiovascular: Regular rate and rhythm with a normal S1 and S2. No gallops, murmurs, or rubs. No pulse deficits. Respiratory: Respirations even and unlabored. No increased work of breathing. Talking in full sentences Skin: Warm, dry with normal turgor. Normal color. MS/ Extremity: Pulses equal, no cyanosis. Neurovascular intact. Full, normal range of motion. Neuro: Awake and alert, GCS 15, oriented to person, place, time, and situation. Moves all extremities. Normal gait. Psych: Awake, alert, with orientation to person, place and time. Behavior, mood, and affect are within normal limits. 01:52 Abdomen/GI: Inspection: abdomen appears normal, Bowel sounds: normal, in all quadrants, Palpation: abdomen is soft and non-tender, in all quadrants. Vital Signs: 01/03 17:59 BP 135 / 86; Pulse 109; Resp 20; Temp 99.5; Pulse Ox 100% on R/A; Weight 154.22 kg; ph Height 5 ft. 1 in. (154.94 cm); 20:15 BP 102 / 72; Pulse 83; Resp 18; Pulse Ox 97% on R/A; Pain 7/10; eh3 17:59 Body Mass Index 64.24 (154.22 kg, 154.94 cm) ph MDM: 18:05 Patient medically screened. kb 01/04 01:52 Data reviewed: vital signs, nurses notes. Data interpreted: Pulse oximetry: on room air kb is 97 %. Interpretation: normal. Counseling: I had a detailed discussion with the patient and/or guardian regarding: the historical points, exam findings, and any diagnostic results supporting the discharge/admit diagnosis, lab results, the need for outpatient follow up, a family practitioner, to return to the emergency department if symptoms worsen or persist or if there are any questions or concerns that arise at home. 01/03 18:02 Order name: CBC with Diff; Complete Time: 19:27 kb 01/03 18:02 Order name: CMP; Complete Time: 19:42 kb 01/03 18:02 Order name: Lipase; Complete Time: 19:42 kb 01/03 18:02 Order name: Flu; Complete Time: 19:27 kb 01/03 18:02 Order name: COVID-19 SARS RT PCR (Document "Date of Onset" if Symptomatic); Complete kb Time: 19:42 01/03 18:02 Order name: IV Saline Lock; Complete Time: 19:04 kb 01/03 18:02 Order name: Labs collected and sent; Complete Time: 19:04 kb Administered Medications: 01/03 20:13 Drug: NS 0.9% 1000 ml Route: IV; Rate: 1 bolus; Site: right antecubital; hb 20:13 Drug: Pepcid (famotidine) 20 mg Route: IVP; Site: right antecubital; hb 20:13 Drug: Zofran (Ondansetron) 4 mg Route: IVP; Site: right antecubital; hb 20:13 Drug: Bentyl (dicyclomine) 20 mg Route: PO; hb Disposition: 01/04 07:46 STAFF ATTESTATION STATEMENT: I was immediately available onsite in the emergency sd2 department for consultation in the care of this patient. I did not see or examine this patient. Laura Prado MD. Disposition Summary: 01/03/22 20:49 Discharge Ordered Location: Home kb Condition: Stable kb Diagnosis - Diarrhea, unspecified kb - Nausea with vomiting, unspecified kb Followup: kb - With: Emergency Department - When: As needed - Reason: Worsening of condition Followup: kb - With: Private Physician - When: 2 - 3 days - Reason: Recheck today's complaints, Continuance of care, Re-evaluation by your physician Discharge Instructions: - Discharge Summary Sheet kb - Food Choices to Help Relieve Diarrhea, Adult kb - Viral Gastroenteritis, Adult, [id number] kb Forms: - Medication Reconciliation Form kb - Thank You Letter kb - Antibiotic Education kb - Prescription Opioid Use kb Prescriptions: - Zofran 4 mg Oral Tablet - take 1 tablet by ORAL route every 6 hours As needed; 20 tablet; Refills: 0, kb Product Selection Permitted - dicyclomine 20 mg Oral Tablet - take 1 tablet by ORAL route 4 times per day As needed; 20 tablet; Refills: 0, kb Product Selection Permitted Signatures: Dispatcher [employer] Heather Dawson FNP-C FNP-Ckb Hall, Patricia, RN RN Jana Morton, RN RN Laura Paul MD MD [id number]
[2022-01-05 03:58] VITALS: TEMP 99.5
[2022-01-05 04:02] VITALS: BP 102/72; O2SAT 97
== END 2022-01-03 21:24 | disposition home or self-care (01) ==
LOC: ER 17:40
DX: R19.7 Diarrhea, unspecified (principal); R11.2 Nausea with vomiting, unspecified; Z20.822 Contact with and (suspected) exposure to COVID-19
CPT/HCPCS: 36415; 80053; 83690; 85025; 87804; 96374; 96375; 99284; J2405; J7030; U0003